=== PATIENT | female | born 1950 | race Caucasian/White ===

== ENCOUNTER 2025-05-12 01:15 | Emergency (ER) | payer MEDICARE, BC, SELFPAY ==
--- OUTSIDE RECORDS SUMMARY | 2025-03-31 14:30 | XMS_ITS | Encounter Summary ---
Author Organization [facility] Address [address] [place] [address]. [place] [address] Care Team Providers Care Leather Skinner Name Role Phone Radha Chang MD Primary Care Provider Love Andrew RD Unavailable Unavailable Radha Chang MD Unavailable [phone] Estela Jernigan RN Unavailable [phone] Mulugeta Gimenez PA-C Unavailable [phone] Ella Sumner PA-C Unavailable [phone] Perez Wheeler MD Unavailable Perez Wheeler MD Unavailable Ara Engel PA-C Unavailable [phone] Reason for Visit * Reason Comments Dressing Change Encounter Details Date Type Department Care Team (Late st Contact Info) Description 03/31/2025 2:30 PM CDT Allied Health/Nurse Visit [address] [phone] Dressing Change Social History Tobacco Use Types Packs/Day Years Used Date Smoking Tobacco: Never Smokeless Tobacco: Never Alcohol Use Standard Drinks/Week Comments Yes 0 (1 standard drink = 0.6 oz pur e alcohol) rarely drink Social Connection and Isolation Panel Answer Date Recorded Frequency of Communication with Friends and Fami ly Not on file 02/28/2025 How often do you get together with friends or re latives? Twice a week 02/28/2025 Attends Mosque Services Not on file 02/28 Active Member of Clubs or Organizations Not on f ile 02/28/2025 Attends Club or Organization Meetings Not on randolph e 02/28/2025 Marital Status Not on file 02/28/2025 PHQ-2 Answer Date Recorded PHQ-2 Score 0 03/02/2025 [facility] Occupational Stress Questionnaire Answer Date Recorded Do you feel stress - tense, restless, nervous, or anxious, or unable to sleep at night because your mind is troubled all the time - these days? Only a little 02/28/2025 Exercise Vital Sign Answer Date Recorde d On average, how many days pe r week do you engage in moderate to strenuous exercise (like a brisk walk)? 2 days 02/28/2025 On average, how many minutes do you engage in exercise at this level? 120 min 02/28/2025 Adolescent Education Answer Date Record ed Getting School Help Needed Not on file 04/23 Food Insecurity Answer Date Recorded Within the past 12 months, d id you worry that your food would run out before you got money to buy more? No 02/28/2025 Within the past 12 months, d id the food you bought just not last and you didn t have money to get more? No 02/28/2025 Housing Stability Answer Date Recorded Do you have housing? (Housin g is defined as stable permanent housing and does not include staying outside in a car, in a tent, in an abandoned building, in an overnight longterm, or couch-surfing.) Yes 02/28/2025 Are you worried about losing your housing? No 02/28/2025 Financial Resource Strain Answer Date R ecorded Within the past 12 months, h ave you or your family members you live with been unable to get utilities (heat, electricity) when it was really needed? No 02/28/2025 Transportation Needs Answer Date Record ed Within the past 12 months, h as lack of transportation kept you from medical appointments, getting your medicines, non-medical meetings or appointments, work, or from getting things that you need? No 02/28/2025 Interpersonal Safety Answer Date Record ed Do you feel physically and e motionally safe where you currently live? Yes 03/02/2025 Within the past 12 months, h ave you been hit, slapped, kicked or otherwise physically hurt by someone? No 03/02/2025 Within the past 12 months, h ave you been humiliated or emotionally abused in other ways by your partner or ex-partner? 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 Please feel free to call our office to speak with one of the nurses if you have any questions or concerns about the progress of the wound healing process especially if there are any signs of flap necrosis or infection. We will be happy to answer any questions you might have. AFTER 24 HOURS YOU SHOULD REMOVE THE BANDAGE AND BEGIN DAILY DRESSING CHANGES FOLLOWS: 1) Remove Dressing. 2) Clean and dry the area with tap water using a Q-tip or sterile gauze pad. 3) Apply Vaseline, Polysporin ointment, Aquafor or Bacitracin ointment over entire wound. Do NOT use Neosporin ointment. 4) Cover the wound with a band-aid, or a sterile non-stick gauze pad and micropore paper tape REPEAT THESE INSTRUCTIONS AT LEAST ONCE A DAY UNTIL THE WOUND HAS COMPLETELY HEALED. DO NOT LET THEWOUND SCAB OVER. It is an old wives tale that a wound heals better when it is exposed to air and allowed to dry out.The wound will heal faster with a better cosmetic result if it is kept moist with ointment and covered with a bandage. Massaging the wound site enhances the healing process by softening the scar tissue and fading the scar. Please begin massaging the area one month after surgery as often as possible. Continue to massage the area for 2-3 months or until they feel the scar tissue has softened. Moisturizers can be usedduring the massaging but are not necessary. Ultimately it takes six months for the scar to soften and blend into the surrounding skin. documented in this encounter Progress Notes * Clarissa Kim RN - 03/31/2025 2:30 PM CDT Katy Calvin comes into clinic today at the request of Dr. Willoughby Ordering Provider for Dressing Change . This service provided today was under the supervising provider of the day Yanci Pickering PA-C who was available if needed. Please see providers note on 03/25/25 for orders Patient returned to clinic for post surgery 1 week follow up bandage change. Patient has no complaints, denies pain. Bandage removed from R ala. Area cleansed with wound cleanser. Site is healing with no signs of infection, wound edges approximating well. Advised to watch for signs and symptons of infection; spreading redness, increasing pain, drainage,odor, fever. Call or report promptly to clinic if any of these symptoms are present. Wound care post op instructions given and discussed continued incision/scar care. Patient verbalized understanding. Clarissa Dickens RNmaintenance job titles [phone] documented in this encounter Plan of Treatment Upcoming Encounters Date Type Department Care Team (Late st Contact Info) Description 11/08/2025 8:00 AM CDT Office Visit [address] [phone] Radha Chang MD [address] [place] [id number] 11/09/2025 10:00 AM CDT Office Visit [address] [phone] Mulugeta Gimenez PA-C [id number] [place] [address] documented as of this encounter Goals Goal Patient Goal Type Associated Problems Recent Progress Patient-Stated? Author Establish Regular Follow-Ups with PCP Care Plan HbA1C Not In Goal No Estela Jernigan RN Get HbA1C Level in Goal Care Plan HbA1C Not In Goal Estela Sahu RN Understand diabetes pathophysiology and disease progression Care Plan Diabetes Self-Management Education Needed to Optimize Self-Care Behaviors Estela Sahu RN Healthy Eating - follow a healthy eating pattern for diabetes Care Plan Diabetes Self-Management Education Needed to Optimize Self-Care Behaviors Estela Sahu RN Being Active - get regular physical activity, working up to at least 150 minutes per week Care Plan Diabetes Self-Management Education Needed to Optimize Self-Care Behaviors Estela Sahu RN Monitoring - monitor glucose and ketones as directed Care Plan Diabetes Self-Management Education Needed to Optimize Self-Care Behaviors Estela Sahu RN Taking Medication - patient is consistently taking medications as directed Care Plan Diabetes Self-Management Education Needed to Optimize Self-Care Behaviors Estela Sahu RN Problem Solving - know how to prevent and manage short-term diabetes complications Care Plan Diabetes Self-Management Education Needed to Optimize Self-Care Behaviors Estela Sahu RN Reducing Risks - know how to prevent and treat long-term diabetes complications Care Plan Diabetes Self-Management Education Needed to Optimize Self-Care Behaviors Estela Sahu RN Healthy Coping - use available resources to cope with the challenges of managing diabetes Care Plan Diabetes Self-Management Education Needed to Optimize Self-Care Behaviors No Estela Jernigan RN documented as of this encounter Visit Diagnoses Diagnosis Dressing change or removal, surgical wound- Primary Encounter for change or removal of surgical wound dressing documented in this encounter Additional Health Concerns Active Problems Noted Date Diagnosed Date HbA1C Not In Goal 09/12/2022 Diabetes Self-Management Edu cation Needed to Optimize Self-Care Behaviors 09/12/2022 Assessment Noted Time PHQ-9 Depression Total Score: 4 12/12/19 19 11:53 AM CDT documented as of this encounter Care Teams Leather Skinner Relationship Specialty Start Date End Date Radha Chang MD [address] [place] [id number] PCP - General 03/05/[address] [place] [phone] Mortar Mixer Dietitian, Registered 12/04/18 Radha Chang MD [address] [place] [id number] Assigned PCP 01/13/22 Estela Jernigan RN [employer] Diabetes Education 09/03/22 Mulugeta Gimenez PA-C [phone] [address] Assigned Neuroscience Provider 11/03/22 Ella Sumner PA-C [facility] [place] [address] Physician Specialty Sales Representative Dermatology 11/14/23 Perez Wheeler MD [address] [place] [id number] Physician 12/05/23 Perez Wheeler MD [address] [place] [id number] Assigned Surgical Provider 10/04/24 Ara Engel PA-C Dermatology [address] [place] [id number] Assigned Dermatology Provider 12/04/24 documented as of this encounter
[2025-05-12 01:23] VITALS: BP 146/72; PULSE 89; RESP 18; TEMP 36.3; O2SAT 99; BMI 28.4
--- NOTE | 2025-05-12 01:47 | CRLHL7_ITS ---
For Patients: As a result of the Cures Act, medical imaging exams and procedure reports are released immediately into your electronic medical record. You may view this report before your referring provider. If you have questions, please contact your health care provider. INDICATION: Fall, pain. TECHNIQUE: Right wrist 3 view. COMPARISON: None. FINDINGS: Bones: No acute fracture or suspicious bone lesion. Alignment is normal. Joint spaces: Degenerative changes of the radiocarpal joint, distal radioulnar joint, 1st CMC joint, 1st MCP joint, and triscaphe. Soft tissues: Unremarkable. IMPRESSION: 1. No acute findings. 2. Degenerative changes of the wrist. Dictated by Yelitza Jonas MD @ 05/12/2025 2:34:56 AM (Electronically Signed)
--- NOTE | 2025-05-12 01:47 | CRLHL7_ITS ---
For Patients: As a result of the Cures Act, medical imaging exams and procedure reports are released immediately into your electronic medical record. You may view this report before your referring provider. If you have questions, please contact your health care provider. INDICATION: Fall, pain. TECHNIQUE: Right shoulder 3 view. COMPARISON: None. FINDINGS: Bones: No acute fracture or suspicious bone lesion. Alignment is normal. Joint spaces: Moderate degenerative changes of the glenohumeral joint. Mild degenerative changes of the acromioclavicular joint. Soft tissues: Unremarkable. IMPRESSION: 1. No acute findings. 2. Degenerative changes of the shoulder. Dictated by Yelitza Jonas MD @ 05/12/2025 2:32:05 AM (Electronically Signed)
--- NOTE | 2025-05-12 01:47 | CRLHL7_ITS ---
For Patients: As a result of the Century Cures Act, medical imaging exams and procedure reports are released immediately into your electronic medical record. You may view this report before your referring provider. If you have questions, please contact your health care provider. INDICATION: Fall, pain. 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 TECHNIQUE: Right elbow 4 view. COMPARISON: None. FINDINGS: Bones: No acute fracture or dislocation. 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 Chronic appearing deformities of the radial head and proximal ulna. Joints: Moderate degenerative changes. No sign of joint effusion. Soft tissues: Mild soft tissue swelling about the elbow. IMPRESSION: 1. Mild soft tissue swelling. No acute fracture. 2. 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 Dictated by Yelitza Jonas MD @ 05/12/2025 2:29:44 AM (Electronically Signed)
--- NOTE | 2025-05-12 01:49 | ED.GENADULT ---
HPI - General Adult General Chief complaint: Extremity Pain/Injury, Upper Stated complaint: fall, right arm and shoulder pain Time Seen by Provider: 05/12/25 01:21 Source: patient and family Mode of arrival: ambulatory Limitations: no limitations History of Present Illness HPI narrative: 75-year-old female presents to ED for evaluation of right arm pain after a fall 9 hours ago in her kitchen. Has not tried taking any medication to help with her pain. She reports she was unable to sleep because her arm was painful. When I ask her specifically where she vaguely points to the shoulder, the humerus the elbow the forearm and the wrist. When I try to clarify for her specifically where does it hurt bothersome enough to concern her, she again in around about long-winded way reports all of these areas. She then goes on to tell me that she has a history of a fracture in her right elbow at age 1 that has left her unable to do a laundry list that she extensively tells me of things as an adult. She cannot typically straighten this arm. There are no other areas of bruising, swelling, deformity. She does not report any open lacerations. No shortness of breath. Fall was purely mechanical. No numbness or tingling in her hand. Past medical history notable for hypertension, hypothyroidism, hyperlipidemia, type 2 diabetes. Medications are reviewed. Accurate as listed per patient. Allergy to sulfa. ROS is notable for the musculoskeletal symptoms only, otherwise benign times 12 systems. Related Data Home Medications ?Medication ?Instructions ?Recorded ?Confirmed azelastine 205.5 mcg (0.15 %) 1 spray intranasal QHS 07/18/24 07/18/24 nasal spray estradiol 0.01% (0.1 mg/gram) vaginal 07/18/24 07/18/24 vaginal cream ezetimibe 10 mg tablet 10 mg PO DAILY 07/18/24 07/18/24 levothyroxine 100 mcg tablet 100 mcg PO DAILY 07/18/24 07/18/24 lisinopril 2.5 mg tablet 2.5 mg PO DAILY 07/18/24 07/18/24 metformin 500 mg tablet 1,000 mg PO BID 07/18/24 07/18/24 minoxidil 2.5 mg tablet mg PO 07/18/24 07/18/24 mometasone 220 mcg/actuation(14 2 inh inhalation BID 07/18/24 07/18/24 doses) breath activated powder inhaler omeprazole 40 mg capsule,delayed 40 mg PO DAILY 07/18/24 07/18/24 release rosuvastatin 20 mg tablet 20 mg PO QPM 07/18/24 07/18/24 semaglutide 1 mg/dose (4 mg/3 mL) mg subcut 07/18/24 07/18/24 subcutaneous pen injector (Ozempic) Allergies Allergy/AdvReac Type Severity Reaction Status Date / Time Sulfa (Sulfonamide Allergy Intermediate Rash Verified 07/18/24 11:34 Antibiotics) Exam Const: Vital Signs, click to edit/add: Vital Signs - 24 hr 05/12/25 01:23 Temperature 97.3 F L Pulse Rate [Pulse Oximeter] 89 Respiratory Rate 18 Blood Pressure [Ri ght Upper Arm] 146/72 H Pulse Oximetry 99 Oxygen Delivery Me thod Room Air Documenting provider has reviewed patient's vital signs: yes Common normals: no apparent distress and alert General appearance: cooperative and comfortable HENMT: Common normals: normocephalic Head and scalp: normocephalic Face and sinus: normal facial exam Eye: Common normals: conjunctivae normal General eye: normal appearance of both eyes Conjunctiva: conjunctiva(e) normal Neck & C-Spine: General: normal visual inspection Resp: Common normals: normal respiratory effort and no use of accessory muscles Effort & inspection: able to speak in complete sentences Extremity: Other: Left arm, wrist and elbow appear grossly normal. The right elbow has chronic appearing enlargement with no swelling or effusion or redness. There is enlargement of the lateral epicondyle, she reports that this is chronic and it does appear as such. She cannot flex or extend much at the elbow but she does have some supination and pronation. The wrist has normal range of motion, no enlargement, deformity or range of motion deficit. The hand has normal range of motion though she does report some mild tenderness at the 1st MTP joint. Shoulder has normal range of motion with no point bony tenderness, swelling or deformity. She does report tenderness but again nonfocal. Normal radial pulses, normal capillary refill in all fingers. Normal sensation in all fingers. Neuro: Sensorium/orientation: alert Psych: Appearance: grossly normal Mood and affect: euthymic mood Insight: fair Judgement: fair Skin: Common normals: no rashes or lesions noted General skin exam: no rashes or lesions noted Course Course ED Course: 75-year-old female with shoulder, upper arm, elbow, forearm, wrist and CMC joint pain after a fall 9 hours ago. An adequate trial of home management with swgb-kqy-hqnqlog medications. Differential diagnosis including vascular or neurological injury, fracture, sprain, amongst others. Most likely this is a sprain. It will be difficult to evaluate her area of chronic fracture that there are no signs of effusion that would suggest acute pathology. Will obtain x-ray of the shoulder, elbow and wrist. Will give ibuprofen 600 mg p.o. x1 and await findings. Reevaluation(s) Time of Reevaluation #1: 02:40 Reevaluation #1: Counseled patient on findings. No signs of fractures. Her chronic elbow fracture of course has not Magic Oralia healed since her last evaluation for this. She is noting some improvement from the ibuprofen and sling. We counseled on ilzu-ktj-znzgjgx pain medications. Tylenol 1000 mg t.i.d. for the next few weeks as needed. Ibuprofen 600 mg t.i.d. for up to 5 days due to her history of diabetes and hypertension. Okay to use xtvl-got-qzrgyqb sleep aids like melatonin, Benadryl, Unisom as needed. Primary care orthopedic follow-up if not markedly improved in 2 weeks time. Sling p.r.n. if she finds it helpful only. Alarm symptoms reviewed that would warrant ER evaluation. Written instructions provided Vital Signs Vital signs: Initial Vital Signs Temperature 97.3 F L 05/12/25 01:23 Temperature Source Temporal Artery Scan 05/12/25 01:23 Pulse Rate 89 05/12/25 01:23 Pulse Rhythm Regular 05/12/25 01:23 Respiratory Rate 18 05/12/25 01:23 Blood Pressure 146/72 H 05/12/25 01:23 Blood Pressure Mean 96 05/12/25 01:23 Blood Pressure Position Sitting 05/12/25 01:23 Pulse Oximetry 99 05/12/25 01:23 Oxygen Delivery Method Room Air 05/12/25 01:23 Vital Signs Temperature 97.3 F L 05/12/25 01:23 Pulse Rate 89 05/12/25 01:23 Respiratory Rate 18 05/12/25 01:23 Blood Pressure 146/72 H 05/12/25 01:23 Pulse Oximetry 99 05/12/25 01:23 Oxygen Delivery Method Room Air 05/12/25 01:23 Temperature 97.3 F L 05/12/25 01:23 Pulse Rate 89 05/12/25 01:23 Respiratory Rate 18 05/12/25 01:23 Blood Pressure 146/72 H 05/12/25 01:23 Pulse Oximetry 99 05/12/25 01:23 Oxygen Delivery Method Room Air 05/12/25 01:23 Medications Administered Medications: Generic Name Dose Route Start Last Admin Trade Name Mary PRN Reason Stop Dose Admin Ibuprofen 600 mg 05/12/25 01:47 05/12/25 01:55 Ibuprofen 200 Mg Tablet PO 05/12/25 01:48 600 mg ONCE ONE Administration Medical Decision Making Imaging Data X-ray right elbow: Attestation: I have reviewed the pertinent imaging results. My impression: Chronic appearing fracture, no acute change Radiologist's impression: IMPRESSION: 1. Mild soft tissue swelling. No acute fracture. 2. 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 Dictated by Yelitza Jonas MD @ 05/12/2025 2:29:44 AM X-ray right wrist: Attestation: I have reviewed the pertinent imaging results. My impression: Arthritis, no fractures Radiologist's impression: IMPRESSION: 1. No acute findings. 2. Degenerative changes of the wrist. Dictated by Yelitza Jonas MD @ 05/12/2025 2:34:56 AM (Electronic Signature) X-ray right shoulder: Attestation: I have reviewed the pertinent imaging results. My impression: Arthritic changes but no fracture Radiologist's impression: IMPRESSION: 1. No acute findings. 2. Degenerative changes of the shoulder. Dictated by Yelitza Jonas MD @ 05/12/2025 2:32:05 AM Discharge Plan Discharge Clinical Impression: Arm sprain Patient Disposition: Home w/ Parent or Adult Condition: Stable Instructions: Sprain (ED) Additional Instructions: As we discussed, there are no signs of new fractures in your wrist, elbow or shoulder. There are some arthritis changes, not unexpected for your age. For pain, please start with Tylenol 1000 mg every 6-8 hours, max of 3000 mg per day. You may take this right away when you get home. This is safe for you to use for the next several weeks at these doses every day. For the next 5 days, it is also safe for you to use ibuprofen 600 mg 3 times daily. I do not recommend stronger pain medicine but it is safe to use ddhy-yvx-eyjcbig sleep aids like Benadryl, 10 mg of melatonin or knoy-nfm-vwsuwjj Unisom to help with sleep as well. It is okay to apply ice for 15 minutes 3 times daily to any focal area that is sore but if the entire arm is sore like you are telling me, there is not much value. Symptoms should improve gradually over the next 2 weeks but if you still have marked impairment of your function in 2 weeks time, please make a follow-up appointment in the clinic to have this evaluated. You may wear the sling if you find it helpful. Activity Level: Activity as Tolerated Discharge Diet: Regular Prescriptions: No Action minoxidil 2.5 mg tablet PO lisinopril 2.5 mg tablet 2.5 mg PO DAILY rosuvastatin 20 mg tablet 20 mg PO QPM ezetimibe 10 mg tablet 10 mg PO DAILY levothyroxine 100 mcg tablet 100 mcg PO DAILY omeprazole 40 mg capsule,delayed release(DR/EC) 40 mg PO DAILY Ozempic 1 mg/dose (4 mg/3 mL) pen injector subcut metformin 500 mg tablet 1,000 mg PO BID estradiol 0.01 % (0.1 mg/gram) cream vaginal azelastine 205.5 mcg (0.15 %) spray,non-aerosol 1 spray intranasal QHS Rx Instructions: administer into each nostril mometasone 220 mcg/ actuation (14) aerosol powdr breath activated 2 inh inhalation BID Follow Up/Referrals: Provider,Not a Local [Primary Care Provider, Family Practice] Stand Alone Forms: [employer] Info Instructions
[2025-05-12] MEDS: IBUPROFEN 200 MG TABLET 600 MG PO (01:55)
--- OUTSIDE RECORDS SUMMARY | 2025-05-12 02:10 | XMS_ITS | Clinical Summary ---
Author Organization [place] Address [facility] [place] [address] Care Team Providers Care Warehouse Guard Name Role Phone Abril Chang MD Primary Care Provider Love Andrew RD Unavailable Unavailable Abril Chang MD Unavailable [phone] Estela Jernigan RN Unavailable Mulugeta Gimenez PA-C Unavailable Ella Sumner PA-C Unavailable Perez Wheeler MD Unavailable Perez Wheeler MD Unavailable Ara Engel PA-C Unavailable [phone] Allergies Active Allergy Reactions Criticality Noted Date Comments Atorvastatin Calcium 12/10/2003 muscle aches and elevated liver functions Sulfamethoxazole-Trimethopri m Itching 03/26/2016 Caffeine 03/05/2003 GI sx Dust Mites 10/13/2015 Hydrocodone-Acetaminophen 11/20/2008 Vicodin makes her blood pressure drop Ragweeds 10/13/2015 Sertraline Hcl 03/05/2003 seizures - Zoloft Medications MULTIVITAMIN TABS OR 0 08/27/19 04 Active VITAMIN D3 2000 UNIT OR CAPSIndications: Vitamin D deficiency 3 tablets daily 30 Cap 12 09/27/19 10 Active aspirin 81 MG tabletIndication s:Hyperlipidemia LDL goal <130 Take 1 tablet by mouth daily. 100 tablet 3 01/31/20 11 Active order for DMEIndications:T ype 2 diabetes mellitus with diabetic polyneuropathy, without long-term current use of insulin (H) Shoes for diabetic neuropathy 2 Units 1 01/05/20 20 Active Microlet Lancets MISCIndications: Type 2 diabetes mellitus with hyperglycemia, without long-term current use of insulin (H),Type 2 diabetes mellitus with diabetic polyneuropathy, without long-term current use of insulin (H) 1 lancet. daily 100 each 11 02/26/20 24 Active chlorpheniramine (ALLERGY) 4 MG tabletIndication s:Multiple environmental allergies Take 1 tablet (4 mg) by mouth every 6 hours as needed for allergies or rhinitis. PRN [employer] brand 03/02/20 25 Active estradiol (ESTRACE) 0.1 MG/GM vaginal creamIndications :Atrophic vaginitis PLASE 1 GRAM VAGINALLY 3 TIMES WEEKLY 42.5 g 3 03/02/20 25 Active ezetimibe (ZETIA) 10 MG tabletIndication s:Hyperlipidemia LDL goal <70 Take 1 tablet (10 mg) by mouth daily. 90 tablet 1 03/02/20 25 Active fish oil-omega-3 fatty acids 1000 MG capsuleIndicatio ns:Coronary artery disease involving menominee coronary artery of menominee heart without angina pectoris,Hyperli pidemia LDL goal <70 Take 1 capsule (1 g) by mouth daily. 120 capsule 03/02/20 25 Active levothyroxine (SYNTHROID/LEVOT HROID) 100 MCG tabletIndication s:Hypothyroidism , unspecified type Take 1 tablet (100 mcg) by mouth daily. 90 tablet 3 03/02/20 25 Active lisinopril (ZESTRIL) 2.5 MG tabletIndication s:Type 2 diabetes mellitus with diabetic polyneuropathy, without long-term current use of insulin (H),Essential hypertension with goal blood pressure less than 140/90 TAKE ONE TABLET BY MOUTH ONE TIME DAILY 90 tablet 1 03/02/20 25 Active metFORMIN (GLUCOPHAGE) 500 MG tabletIndication s:Type 2 diabetes mellitus with diabetic polyneuropathy, without long-term current use of insulin (H) Take 2 tablets (1,000 mg) by mouth 2 times daily (with meals). 360 tablet 1 03/02/20 25 Active minoxidil (LONITEN) 2.5 MG tabletIndication s:Androgenetic alopecia Take 1/4 tablet daily. 45 tablet 2 03/02/20 25 Active mometasone (NASONEX) 50 MCG/ACT nasal sprayIndications :Nasal congestion Lopeno 2 sprays into both nostrils daily. 17 g 03/02/20 25 Active omeprazole (PRILOSEC) [address] capsuleIndicatio ns:Globus sensation Take 1 capsule (40 mg) by mouth daily. 90 capsule 03/02/20 25 Active rosuvastatin (CRESTOR) 40 MG tabletIndication s:Hyperlipidemia LDL goal <70,Coronary artery disease due to calcified coronary lesion Take 1 tablet (40 mg) by mouth daily. 90 tablet 03/02/20 25 Active Semaglutide, 1 MG/DOSE, (OZEMPIC) 4 MG/3ML penIndications:T ype 2 diabetes mellitus with hyperglycemia, without long-term current use of insulin (H) Inject 1 mg subcutaneously every 7 days. 3 mL 03/02/20 25 Active azelastine (ASTELIN) 0.1 % nasal sprayIndications :Nasal congestion Lopeno 1 spray into both nostrils 2 times daily as needed for rhinitis, other or allergies (nasal congestion). 30 mL 03/02/20 25 Active alcohol swab prep padsIndications: Type 2 diabetes mellitus with diabetic polyneuropathy, without long-term current use of insulin (H),Type 2 diabetes mellitus with hyperglycemia, without long-term current use of insulin (H) Use to swab area of injection/gogo as directed. 100 each 03/02/20 25 Active blood glucose (NO BRAND SPECIFIED) test stripIndications :Type 2 diabetes mellitus with diabetic polyneuropathy, without long-term current use of insulin (H),Type 2 diabetes mellitus with hyperglycemia, without long-term current use of insulin (H) Use to test blood sugar 1 times daily. 100 strip 03/02/20 25 Active Blood Glucose Monitoring Suppl (CONTOUR BLOOD GLUCOSE SYSTEM) w/Device KITIndications:T ype 2 diabetes mellitus with diabetic polyneuropathy, without long-term current use of insulin (H),Type 2 diabetes mellitus with hyperglycemia, without long-term current use of insulin (H) Use to test blood sugar 1 times daily. 1 kit 1 03/02/20 25 Active amoxicillin (AMOXIL) 500 MG capsuleIndicatio ns:Aortic valve sclerosis Take 4 capsules (2,000 mg) by mouth once for 1 dose. 60 minutes prior to dental work 4 capsule 4 04/02/20 24 025 Discontin ued(Reord er (No AVS)) amoxicillin (AMOXIL) 500 MG capsuleIndicatio ns:Aortic valve sclerosis Take 4 capsules (2,000 mg) by mouth once for 1 dose. 60 minutes prior to dental work 4 capsule 4 04/22/20 25 025 Active Problems Problem Noted Date Diagnosed Date History of concussion- from skiiing accident in her s - balance off somewhat since then 03/02/2025 Abnormal breast exam - redde thiago 3cm x 2cm irregular area with some underlying irregular firmness at 5:00 in the peripheral tissue left breast 03/10/2024 Overview (03/02/2025): Normal diag mammo and US 11/02/2024 and skin biopsy 11/05/2024 = benign superficial dermal fibrosis without epidermal or fat alteration Type 2 diabetes mellitus wit h diabetic polyneuropathy, without long-term current use of insulin (H)- needs labs and med refills today 02/26/2024 Nasal congestion 01/27/2024 Polyneuropathy associated with underlying diseas e 07/16/2023 Type 2 diabetes mellitus wit h hyperglycemia, without long-term current use of insulin 01/21/2023 Globus sensation - has now b een taking her omeprazole regularly daily again and symptoms are well controlled - resolved with that medication 01/21/2023 [place] or callus- right medial 2nd toe 01/21/2023 Vaccine refused by patient - COVID-19 bivalent booster - discussed with patient her high risk status - age >65, DM, HTN, and weight 01/21/2023 Tick bite of lower back, ini tial encounter- target lesions seen - will treat today 01/19/2022 Mild mitral valve regurgitation 06/01/2021 Mild tricuspid valve regurgitation 06/01/2021 Nonrheumatic aortic valve insufficiency 06/01/20 21 Atherosclerosis of aorta 09/25/2018 History of recurrent UTIs 10/13/2015 Allergic rhinitis due to pollen 12/08/2014 Essential hypertension with goal blood pressure less than 140/90 11/16/2014 Memory difficulties - per ne uropsych 07/07/2014- more psychological and physical stress related - better with decreased stress in her life 11/11/2014 Atrophic vaginitis 12/28/2013 Aortic valve sclerosis- mild - moderate - last echocardiogram 03/2024= 1.4cm2 decreased from 1.8 cm2 from 2021 -repeat echo in 03/2025 ### NEEDS SBE PROPHYLAXIS ### 12/28/2013 History of dysplastic nevus- right anterior thigh - required wider excision 12/28/2013 Recurrent UTI 12/19/2012 Lumbar back pain 04/14/2012 Neoplasm of uncertain behavior of skin- actinic keratoses 04/14/2012 Adenomatous Polyp of Colon-2 [id number] 2013 and 2020 = both clear - no further repeat needed secondary to age 0410/21/2009 Vitamin D deficiency 09/26/2009 Aortic Sclerosis - stable on echo in 2013 Fibrocystic breast disease 04/21/2008 History of urinary tract infection 10/11/2006 Overview (04/14/2015): Problem list name updated by automated process. Provider to review Dyspnea and respiratory abnormality 01/21/2006 Overview (04/14/2015): Problem list name updated by automated process. 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 Provider to review Family history of diabetes mellitus 04/03/2004 Gastroesophageal reflux dise ase without esophagitis -stopped PPI in 08/2015 without difficulty 12/11/2003 Asymptomatic postmenopausal status 03/23/2003 Overview (04/14/2015): Problem list name updated by automated process. Provider to review Nonalcoholic fatty liver disease 03/23/2003 Benign neoplasm of skin of lower limb, including hip 03/23/2003 Hyperlipidemia LDL goal <70 - formulary issues with rosuvastatin and ezetemibe 03/23/2003 Morbid obesity due to excess calories Overview (10/10/2016): Problem list name updated by automated process. Provider to review Estimated body mass index is 35.02 kg/(m^2) as calculated from the following: Height as of 05/09/16: 5' 6 (1.676 m). Weight as of 05/09/16: 217 lb (98.4 kg). Labyrinthitis Overview (04/14/2015): inner ear disturbance on& off since childhood when fell and broke something in inner ear Problem list name updated by automated process. Provider to review Other chest pain Overview (01/21/2006): normal gated stress test 08/02/05 Resolved Problems Problem Noted Date Diagnosed Date Resolved Date Somatic dysfunction of pelvic region 10/23/2016 01/17/2017 Diabetic polyneuropathy asso ciated with type 2 diabetes mellitus 11/11/2014 07/16/2023 Type 2 diabetes mellitus wit h diabetic polyneuropathy, without long-term current use of insulin 02/10/2011 07/16/2023 Advanced care planning/counseling discussion 1 06/24/2019 Overview (12/11/2018): Advance Directive Problem List Overview: Name Relationship Phone Primary Health Care Agent Anthony (Wolcott) Nikunj Alternative Health Care Agent Raheel Meraz Son [phone] Cell Her son , Raheel Meraz, is pt's designated health care decision maker in case her is not available. Pt is concerned that her daughters, Marzena Mcneal (hx of bipolar disorder, substance abuse and manipulative behaviors) and Katelyn Meraz (who can be very verbally aggressive) would NOT be reliable for care for pt in the future. Katy Mreaz stated very clearly to me today that she does NOT want her daughters with ANY decision making capabilities for her care, whatsoever. ---Abril Chang MD .December 11, 2018 Discussed advance care planning with patient; information given to patient to review. 2010 and again, December 11, 2018 ---Abril Chang MD Left message for patient to call back to arrange facilitation if desired for completion of Advanced Care Directive. Jillian Lomeli LPN/Advanced Healthcare Planning Vice President Business & Corporate Development 02/06/11 Advance Care Planning 12/17/2016: ACP Review of Chart / Resources Provided: Reviewed chart for advance care plan. Katy Meraz has been provided information and resources to begin or update their advance care plan. Added by Sylvie Rodríguez Leiomyoma of uterus 03/23/2003 10/22/19 Overview (04/14/2015): Problem list name updated by automated process. Provider to review UTI (urinary tract infection) 03/23/2003 03/21/2011 Overview (04/14/2015): Problem list name updated by automated process. Provider to review Primary localized osteoarthrosis, hand 03/23/2003 03/21/2011 Mucous polyp of cervix 03/23/200310/21 Benign neoplasm of colon 01/2011 Overview (10/11/2006): needs repeat in 2007 Encounters Date Type Department Care Team Description 04/22/[address] [phone] Abril Chang MD Medication Request 04/19/2025 Documentation Only [facility] Care [address] [place] [address], [address] [place] [address] Esha Curtis Sleep Problem 04/05/2025 Results Follow-Up [address] [phone] Abril Chang MD Subj: Message about your results 03/31/2025 2:30 PM CDT Allied Health/Nurse Visit [address] [phone] Dressing Change 03/31/2025 Travel 03/25/2025 8:15 AM CDT Office Visit [facility] [address] [phone] Chris Willoughby MD Dermal nevus (Primary Dx); Basal cell carcinoma (BCC) of ala nasi; Angioma of skin; Lentigo; Seborrheic keratoses 03/25/2025 Travel 03/24/2025 Travel 03/16/2025 12:52 PM CDT - 03/16/2025 11:59 PM CDT Hospital Encounter [facility] [address] [facility] [address] [place] [phone] Abril Chang MD Aortic valve sclerosis Discharge Disposition: Home or Self Care 03/16/2025 Travel 03/03/2025 8:30 AM CDT Ancillary Procedure [address] [phone] Abril Chang MD Visit for screening mammogram 03/03/[address] [phone] Abril Chang MD Medication Request 03/02/2025 9:20 AM CDT Office Visit [address] [phone] Abril Chang MD Encounter for Medicare annual wellness exam (Primary Dx); Abnormal breast exam - reddened 3cm x 2cm irregular area with some underlying irregular firmness at 5:00 in the peripheral tissue left breast; Adenomatous polyp of colon, unspecified part of colon; Coronary artery disease involving menominee coronary artery of menominee heart without angina pectoris- Agatson score = 847 on 12/08/[address] artery [place]; Hyperlipidemia LDL goal <70 - formulary issues with rosuvastatin and ezetemibe ; Coronary artery disease due to calcified coronary lesion- found on screening CT coronary angiogram 12/08/2024 - Agatson score 847 - asymptomatic - on high intensity statin & 81mg asa daily since then; Multiple environmental allergies; Hyperlipidemia LDL goal <70 - formulary issues with rosuvastatin and ezetemibe - needs labs and medication refills ; Hypothyroidism, unspecified type- needs labs and refills today; Type 2 diabetes mellitus with diabetic polyneuropathy, without long-term current use of insulin (H)- needs labs and med refills today ; Type 2 diabetes mellitus with hyperglycemia, without long-term current use of insulin (H)- on Ozempic - semaglutide; Essential hypertension with goal blood pressure less than 140/90- needs labs and med refills today ; Atrophic vaginitis- much improved with estrogen vaginal cream ; Androgenetic alopecia- on minoxidil po - stable; Globus sensation - has now been taking her omeprazole regularly daily again and symptoms are well controlled - resolved with that medication ; Nasal congestion; Vitamin D deficiency- needs labs rechecked; Visit for screening mammogram; History of concussion- from skiiing accident in her 20's - balance off somewhat since then 03/02/2025 Results Follow-Up [address] [phone] Abril Chang MD Dx: E. coli UTI (Primary Dx) 03/02/2025 Travel 02/28/2025 Travel from Last 3 Months Immunizations Immunization Administration Dates Next Due COVID-19 Monovalent Booster 18+ (Moderna) 06/01/2021 Flu 65+ (Fluad) 04/09/2024,,04/28/2019,2016 Hepatitis A (VAQTA)(ADULT 19+) 11/22/2017,2016 Hepatitis A/B (Twinrix) 08/10/2011,05/07/2011 Influenza (H1N1) 06/14/2009 Influenza (High Dose) [place] ent,PF (Fluzone) 05/15/2018 Influenza (IIV3) PF 04/28/2014, 3,04/04/2012,2010,05/12/2010,06/14/2009,07/06/2004 Influenza Vaccine 65+ (FLUAD) 04/01/2023, 022,04/07/2020 Influenza Vaccine 65+ (Fluzone HD) 07/15/2018 Pneumo Conj 13-V (2010&after) 10/13/2015 Pneumococcal 23 valent 07/13/2020,05/01/2013 RSV (Abrysvo) 06/18/2023 TD,PF 7+ (Tenivac) 11/13/2008,10/05/2002 TDAP (Adacel,Boostrix) 05/19/2022 TDAP Vaccine (Boostrix) 04/04/2012 Zoster recombinant adjuvante d (Shingrix) 04/28/2019,02/25/2019 Zoster vaccine, live 11/19/2013,07/29/2013 Family History Medical History Relation Comments Cerebrovascular Disease Maternal Grandfather Diabetes Mother type II Heart Disease Mother Hypertension Mother Obesity Mother Osteoporosis Niece Diabetes Paternal Aunt type II Diabetes Paternal Uncle type II Asthma Sister 1 Diabetes Sister 1 type II Obesity Sister 1 Osteoporosis Sister 1 Mental Illness Sister 2 Colon Cancer No family hx of Relation Status Comments Father Maternal Grandfather Mother (Age 67) heart Niece Alive Paternal Aunt Paternal Uncle Sister 1 Alive Sister 2 Social History Tobacco Use Types Packs/Day Years Used Date Smoking Tobacco: Never Smokeless Tobacco: Never Tobacco Cessation:Counseling Given: Not Answered Alcohol Use Standard Drinks/Week Comments Yes 0 (1 standard drink = 0.6 oz pur e alcohol) rarely drink Social Connection and Isolation Panel Answer Date Recorded Frequency of Communication with Friends and Fami ly Not on file 02/28/2025 How often do you get together with friends or re latives? 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 COUNSEL Gender Identity Not on file Sexual Orientation Not on file 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 Not on file Not on randolph e Not on file Not on file Not on file Not on file Not on file Last Filed Vital Signs Vital Sign Reading Time Taken Comments Blood Pressure 108/66 03/02/2025 9:17 AM CDT Pulse 86 03/02/2025 9:17 AM CDT Temperature 36.3 C (97.4 F) 03/02/2025 9:17 AM CDT Respiratory Rate 15 03/02/2025 9:17 AM CDT Oxygen Saturation 99% 03/02/2025 9:17 AM CDT Inhaled Oxygen Concentration - - Weight 77.9 kg (171 lb 11.2 oz) 03/02/2025 9:17 AM CDT Height 166.4 cm (5' 5.5) 03/02/2025 9:17 AM CDT Body Mass Index 28.14 03/02/2025 9:17 AM CDT Plan of Treatment Upcoming Encounters Date Type Department Care Team (Late st Contact Info) Description 11/08/2025 8:00 AM CDT Office Visit [address] [phone] Abril Chang MD [address] [place] [phone] 11/09/2025 10:00 AM CDT Office Visit [facility] [place] [id number] [phone] Mulugeta Gimenez PA-C [address] [facility] [address] [place], [place] [phone] Health Maintenance Due Date Last Done Comments CT COLONOGRAPHY 1950 FLEX SIG 1950 FIT 01/08/2020 01/07/2019, 11/12, 10/31/2015, Additional history exists INFLUENZA VACCINE (#1) 2025 , 04/01/2023, 05/19/2022, Additional history exists A1C 09/02/2025 03/02/2025, 10/13, 05/11/2024, Additional history exists ANNUAL REVIEW OF HM ORDERS 10/26/202510/26, 02/26/2024, 01/21/2023, Additional history exists MICROALBUMIN 10/26/2025 10/26/2024, 02/12, 01/21/2023, Additional history exists EYE EXAM 11/26/2025 11/26/2024, 05/0 12/2023, 08/13/2022, Additional history exists BMP 03/02/2026 03/02/2025, 10/13, 07/16/2023, Additional history exists DIABETIC FOOT EXAM 03/02/2026 03/02/2025, 0 02/26/2024, 02/26/2023, Additional history exists FALL RISK ASSESSMENT 03/02/2026 03/02/2025, 02/26/2024, 02/14/2024, Additional history exists LIPID 03/02/2026 03/02/2025, 10/13, 02/26/2024, Additional history exists MEDICARE ANNUAL WELLNESS VISIT 03/02/2026 03/02/2025, 02/26/2024, 01/21/2023, Additional history exists MAMMO SCREENING 03/03/2026 03/03/2025, 10/14, 03/18/2024, Additional history exists sDNA (Cologuard) 03/23/2027 03/23/2024, 03/23/2024 DEXA 07/02/2029 07/02/2024, 05/16, 01/22/2019, Additional history exists ADVANCE CARE PLANNING 03/02/2030 03/02/2025 , 08/10/2022, 01/19/2022, Additional history exists COLONOSCOPY 08/08/2030 08/08/2020, 07/16, 07/06/2014, Additional history exists COLORECTAL CANCER SCREENING 08/08/2030 DTAP/TDAP/TD VACCINE (3 - Td or Tdap) 05/19/2032 05/19/2022, 04/04/2012, 11/13/2008, Additional history exists COVID-19 VACCINE ( - season) 2112 06/01/2021, 09/30/2020, 09/02/2020 Postponed from 03/15/2025 (Patient Declined) HEPATITIS C SCREENING Completed 02/13/2013 ZOSTER VACCINE Completed 04/28/2019, 02/12, 11/19/2013, Additional history exists PNEUMOCOCCAL VACCINE 50+ YEARS Completed 07/13/2020, 10/13/2015, 05/01/2013 RSV VACCINE Completed 06/18/2023 TSH W/FREE T4 REFLEX Discontinued 10/26/2024, 10/26/2024, 02/21/2023, Additional history exists PHQ-2 (once per calendar year) Completed 03/02/2025, 10/26/2024, 02/26/2024, Additional history exists HPV VACCINE (No Doses Required) Completed MENINGITIS VACCINE Aged Out No longer eligible based on patient's age to complete this topic Goals Goal Patient Goal Type Associated Problems Recent Progress Patient-Stated? Author Establish Regular Follow-Ups with PCP Care Plan HbA1C Not In Goal Estela Sahu RN Get HbA1C Level in Goal Care [...] Education Needed to Optimize Self-Care Behaviors Estela Sahu, dispatcher relay Procedure Name Priority Date/Time Associated Diagnosis Comments [place] FULL THICK GRAFT EEN & LIPS 20 CM OR LESS Routine 03/25/2025 9:32 AM CDT Basal cell carcinoma (BCC) of ala nasi Dermal nevus Angioma of skin Lentigo Seborrheic keratoses NV MOHS HEAD/NCK/HND/FT/GEN EA ADDTL STAGE UP T0 5 BLOCKS Routine 03/25/2025 9:32 AM CDT Basal cell carcinoma (BCC) of ala nasi Dermal nevus Angioma of skin Lentigo Seborrheic keratoses NV MOHS HEAD/NCK/HND/FT/GEN 1ST STAGE UP T0 5 BLOCKS Routine 03/25/2025 9:32 AM CDT Basal cell carcinoma (BCC) of ala nasi Dermal nevus Angioma of skin Lentigo Seborrheic keratoses ECHO COMPLETE Routine 03/16/2025 1:31 PM CDT Aortic valve sclerosis MA SCREENING BILATERAL W/ JOHN Routine 03/03/2025 8:40 AM CDT Visit for screening mammogram URINE CULTURE Routine 03/02/2025 1:33 PM CDT Type 2 diabetes mellitus with diabetic polyneuropathy, without long-term current use of insulin (H)- needs labs and med refills today Type 2 diabetes mellitus with hyperglycemia, without long-term current use of insulin (H)- on Ozempic - semaglutide URINE MICROSCOPIC EXAM Routine 1:33 PM CDT Type 2 diabetes mellitus with diabetic polyneuropathy, without long-term current use of insulin (H)- needs labs and med refills today Type 2 diabetes mellitus with hyperglycemia, without long-term current use of insulin (H)- on Ozempic - semaglutide UA MACROSCOPIC WITH REFLEX TO MICRO AND CULTURE Routine 03/02/2025 1:33 PM CDT Type 2 diabetes mellitus with diabetic polyneuropathy, without long-term current use of insulin (H)- needs labs and med refills today Type 2 diabetes mellitus with hyperglycemia, without long-term current use of insulin (H)- on Ozempic - semaglutide 25 HYDROXYVITAMIN D2 & D3 Routine 03/02/2025 10:54 AM CDT Vitamin D deficiency HEMOGLOBIN A1C Routine 03/02/2025 10:54 AM CDT Type 2 diabetes mellitus with diabetic polyneuropathy, without long-term current use of insulin (H) Type 2 diabetes mellitus with hyperglycemia, without long-term current use of insulin (H) BASIC METABOLIC PANEL Routine 03/02/2025 10:54 AM CDT Type 2 diabetes mellitus with diabetic polyneuropathy, without long-term current use of insulin (H) Essential hypertension with goal blood pressure less than 140/90 Type 2 diabetes mellitus with hyperglycemia, without long-term current use of insulin (H) LIPID REFLEX TO DIRECT LDL PANEL Routine 03/02/2025 10:54 AM CDT Hyperlipidemia LDL goal <70 Coronary artery disease due to calcified coronary lesion ALT Routine 03/02/2025 10:54 AM CDT Hyperlipidemia LDL goal <70 Coronary artery disease due to calcified coronary lesion AST Routine 03/02/2025 10:54 AM CDT Hyperlipidemia LDL goal <70 Coronary artery disease due to calcified coronary lesion EYE EXAM - HIM SCAN 11/26/2024 1 2:00 AM CDT ALBUMIN AND CREATININE WITH RATIO RANDOM URINE QUANTITATIVE Routine 10/26/2024 10:34 AM CDT Essential hypertension with goal blood pressure less than 140/90 Type 2 diabetes mellitus with diabetic polyneuropathy, without long-term current use of insulin (H) Type 2 diabetes mellitus with hyperglycemia, without long-term current use of insulin (H)- on Ozempic - semaglutide Type 2 diabetes mellitus with diabetic polyneuropathy, without long-term current use of insulin (H)- needs labs and med refills today Hyperlipidemia LDL goal <70 - formulary issues with rosuvastatin and ezetemibe - needs labs and medication refills Essential hypertension with goal blood pressure less than 140/90- needs labs and med refills today T4 FREE Routine 10/26/2024 10:27 AM CDT Hypothyroidism, unspecified type- needs labs and refills today DX AXIAL HIPS/SPINE Routine 07/02/2024 3 :29 PM EXECUTIVE ASSISTANT TO GENERAL COUNSEL Asymptomatic menopause COLOGUARD(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) Nonalcoholic fatty liver disease Hypothyroidism, unspecified hypothyroidism type Hyperlipidemia LDL goal <100 Gastroesophageal reflux disease without esophagitis Hypertension goal BP (blood pressure) < 140/90 Vitamin D deficiency History of dysplastic nevus- right anterior thigh - required wider excision Adenomatous Polyp of [id number] epeat 2013=clear, needs repeat in 2019 Non morbid obesity due to excess calories Asymptomatic postmenopausal status Screen for colon cancer Visit for screening mammogram Atrophic vaginitis History of recurrent UTIs Encounter for immunization HEPATITIS C ANTIBODY Routine 02/13/2013 9:52 AM CDT Abnormal liver function tests from Last 3 Months or Most Recently Relevant to Health Maintenance Results * ECHO COMPLETE (03/16/2025 1:31 PM CDT) LVEF 60-65% CARDIOLOGY RESULTS Anatomical Region Laterality Modality Echocardiography 03/16/2025 1:08 PM CDT Narrative 03/16/2025 2:09 PM CDT [id number]^AME^ABRIL^A [facility] Echocardiography Laboratory [address] [place] [id number] Name: KATY MERAZ : 1950 Study Date: 03/16/2025 01:08 PM Age: 74 yrs Gender: Female Patient Location: [facility] Reason For Study: Aortic valve sclerosis Ordering Physician: ABRIL CHANG Referring Physician: ABRIL CHANG Performed By: Catarino Amaral RDCS BSA: 1.9 m2 Height: 65 in Weight: 177 lb HR: 75 BP: 102/67 mmHg Procedure Echocardiogram with two-dimensional, color and spectral Doppler. Interpretation Summary Moderate valvular aortic stenosis. The mean AoV pressure gradient is 21mmHg. The calculated aortic valve area is 1.1cm2. The visual ejection fraction is 60-65%. The left atrium is mildly dilated. Slight progression of aortic valve disease as compared with last year. Left Ventricle The left ventricle is normal in size. There is normal left ventricular wall thickness. Proximal septal thickening is noted. The visual ejection fraction is 60-65%. Grade I or early diastolic dysfunction. Right Ventricle The right ventricle is normal in structure, function and size. Atria The left atrium is mildly dilated. Right atrial size is normal. Mitral Valve The mitral valve leaflets are mildly thickened. There is moderate mitral annular calcification. There is trace mitral regurgitation. Tricuspid Valve Normal tricuspid valve. There is trace tricuspid regurgitation. Right ventricular systolic pressure is normal. Aortic Valve Moderate valvular aortic stenosis. The mean AoV pressure gradient is 21mmHg. The calculated aortic valve area is 1.1cm2. Pulmonic Valve The pulmonic valve is not well seen, but is grossly normal. Vessels The aortic root is normal size. Normal size ascending aorta. The inferior vena cava is normal. Pericardium There is no pericardial effusion. Rhythm Sinus rhythm was noted. MMode/2D Measurements & Calculations IVSd: 0.98 cm LVIDd: 4.1 cm LVIDs: 2.3 cm LVPWd: 1.2 cm IVC diam: 1.5 cm FS: 44.6 % LV mass(C)d: 148.5 grams LV mass(C)dI: 79.1 grams/m2 Ao root diam: 3.0 cm asc Aorta Diam: 3.1 cm LVOT diam: 2.0 cm LVOT area: 3.1 cm2 Ao root diam index Ht(cm/m): 1.8 Ao root diam index BSA (cm/m2): 1.6 Asc Ao diam index BSA (cm/m2): 1.6 Asc Ao diam index Ht(cm/m): 1.9 LA Volume (BP): 54.9 ml LA Volume Index (BP): 29.2 ml/m2 RV Base: 2.7 cm RWT: 0.57 TAPSE: 2.1 cm Time Measurements Aortic HR: 76.0 BPM Doppler Measurements & Calculations MV E max doc: 85.4 cm/sec MV A max doc: 135.0 cm/sec MV E/A: 0.63 MV max P.2 mmHg MV mean P.9 mmHg MV V2 VTI: 30.0 cm MVA(VTI): 2.3 cm2 MV dec time: 0.24 sec Ao V2 max: 300.0 cm/sec Ao max P.0 mmHg Ao V2 mean: 215.0 cm/sec Ao mean P.0 mmHg Ao V2 VTI: 64.2 cm OK(I,D): 1.1 cm2 OK(V,D): 1.1 cm2 LV V1 max P.0 mmHg LV V1 max: 112.0 cm/sec LV V1 VTI: 23.1 cm CO(LVOT): 5.4 l/min CI(LVOT): 2.9 l/min/m2 SV(LVOT): 70.5 ml SI(LVOT): 37.5 ml/m2 PA acc time: 0.11 sec TR max doc: 210.9 cm/sec TR max P.8 mmHg AV Doc Ratio (DI): 0.37 OK Index (cm2/m2): 0.58 E/E' av.8 Lateral E/e': 16.4 Medial E/e': 13.3 RV S Doc: 12.4 cm/sec Report approved by: Kelvin Laura MD on 03/16/2025 02:09 PM Procedure Note Kelvin Laura MD - 03/16/2025 [id number]^AME^ARBIL^Julio César [facility] Echocardiography Laboratory [address] [place] [id number] Name: KATY MERAZ : 1950 Study Date: 03/16/2025 01:08 PM Age: 74 yrs Gender: Female Patient Location: [facility] Reason For Study: Aortic valve sclerosis Ordering Physician: ABRIL CHANG Referring Physician: ABRIL CHANG Performed By: Catarino Amaral RDCS BSA: 1.9 m2 Height: 65 in Weight: 177 lb HR: 75 BP: 102/67 mmHg Procedure Echocardiogram with two-dimensional, color and spectral Doppler. Interpretation Summary Moderate valvular aortic stenosis. The mean AoV pressure gradient is 21mmHg. The calculated aortic valve area is 1.1cm2. The visual ejection fraction is 60-65%. The left atrium is mildly dilated. Slight progression of aortic valve disease as compared with last year. Left Ventricle The left ventricle is normal in size. There is normal left ventricularwall thickness. Proximal septal thickening is noted. The visual ejectionfraction is 60-65%. Grade I or early diastolic dysfunction. Right Ventricle The right ventricle is normal in structure, function and size. Atria The left atrium is mildly dilated. Right atrial size is normal. Mitral Valve The mitral valve leaflets are mildly thickened. There is moderate mitral annular calcification. There is trace mitral regurgitation. Tricuspid Valve Normal tricuspid valve. There is trace tricuspid regurgitation. Right ventricular systolic pressure is normal. Aortic Valve Moderate valvular aortic stenosis. The mean AoV pressure gradient [id number]. The calculated aortic valve area is 1.1cm2. Pulmonic Valve The pulmonic valve is not well seen, but is grossly normal. Vessels The aortic root is normal size. Normal size ascending aorta. The inferiorvena cava is normal. Pericardium There is no pericardial effusion. Rhythm Sinus rhythm was noted. MMode/2D Measurements & Calculations IVSd: 0.98 cm LVIDd: 4.1 cm LVIDs: 2.3 cm LVPWd: 1.2 cm IVC diam: 1.5 cm FS: 44.6 % LV mass(C)d: 148.5 grams LV mass(C)dI: 79.1 grams/m2 Ao root diam: 3.0 cm asc Aorta Diam: 3.1 cm LVOT diam: 2.0 cm LVOT area: 3.1 cm2 Ao root diam index Ht(cm/m): 1.8 Ao root diam index BSA (cm/m2): 1.6 Asc Ao diam index BSA (cm/m2): 1.6 Asc Ao diam index Ht(cm/m): 1.9 LA Volume (BP): 54.9 ml LA Volume Index (BP): 29.2 ml/m2 RV Base: 2.7 cm RWT: 0.57 TAPSE: 2.1 cm Time Measurements Aortic HR: 76.0 BPM Doppler Measurements & Calculations MV E max doc: 85.4 cm/sec MV A max doc: 135.0 cm/sec MV E/A: 0.63 MV max P.2 mmHg MV mean P.9 mmHg MV V2 VTI: 30.0 cm MVA(VTI): 2.3 cm2 MV dec time: 0.24 sec Ao V2 max: 300.0 cm/sec Ao max P.0 mmHg Ao V2 mean: 215.0 cm/sec Ao mean P.0 mmHg Ao V2 VTI: 64.2 cm OK(I,D): 1.1 cm2 OK(V,D): 1.1 cm2 LV V1 max P.0 mmHg LV V1 max: 112.0 cm/sec LV V1 VTI: 23.1 cm CO(LVOT): 5.4 l/min CI(LVOT): 2.9 l/min/m2 SV(LVOT): 70.5 ml SI(LVOT): 37.5 ml/m2 PA acc time: 0.11 sec TR max doc: 210.9 cm/sec TR max P.8 mmHg AV Doc Ratio (DI): 0.37 OK Index (cm2/m2): 0.58 E/E' av.8 Lateral E/e': 16.4 Medial E/e': 13.3 RV S Doc: 12.4 cm/sec Report approved by: Kelvin Laura MD on 03/16/2025 02:09 PM Abril Chang MD CV ECHO ORDERABLES Edit ed Result - Final * MA Screening Bilateral w/ John (03/03/2025 8:40 AM CDT) Anatomical Region Laterality Modality Breast Bilateral Mammography Impressions 03/03/2025 1:48 PM CDT IMPRESSION: ACR BI-RADS Category 1: Negative BREAST CANCER SCREENING RECOMMENDATION: Routine yearly mammography beginning at age 40 or as discussed with your provider. The results and recommendations of this examination will be communicated to the patient. Sven Madden MD Narrative 03/03/2025 1:48 PM CDT BILATERAL FULL FIELD DIGITAL SCREENING MAMMOGRAM WITH TOMOSYNTHESIS Performed on: 03/03/25 Compared to: 03/18/2024 and 04/07/2020 Technique: This study was evaluated with the assistance of Computer-Aided Detection. Breast Tomosynthesis was used in interpretation. Findings: There are scattered areas of fibroglandular density. There is no radiographic evidence of malignancy. us Abril Chang MD IMG MAMMOGRAPHY ORDERAB LES Final Result * (ABNORMAL) UA Macroscopic with reflex to Microscopic and Culture - Lab Collect (03/02/2025 1:33 PM CDT) Color Urine Yellow Colorless, Straw, Light Yellow, Yellow 03/02/2025 1:38 PM CDT [facility] Appearance Urine Clear Clear 03/02/20 1:38 PM CDT [facility] Glucose Urine Negative Negative mg/dL 03/02/2025 1:38 PM CDT [facility] Bilirubin Urine Negative Negative 1:38 PM CDT [facility] Ketones Urine Negative Negative mg/dL 03/02/2025 1:38 PM CDT [facility] Specific [place] Urine 1.025 1.003 - 1.035 03/02/2025 1:38 PM CDT [facility] Blood Urine Small(A) Negative 03/02/2025 1:38 PM CDT [facility] pH Urine 5.5 5.0 - 7.0 03/02/2025 1:38 PM CDT [facility] Protein Albumin Urine 100(A) Negative mg/dL 03/02/2025 1:38 PM CDT [facility] Urobilinogen Urine 0.2 0.2, 1.0 E.U./dL 03/02/2025 1:38 PM CDT [facility] Nitrite Urine Positive(A) Negative 03/02/2025 1:38 PM CDT [facility] Leukocyte Esterase Urine Trace(A) Negative 03/02/2025 1:38 PM CDT [facility] Urine MID-STREAM URINE SPECIMEN / Unknown Non-blood Collection / Unknown 03/02/2025 1:33 PM CDT 03/02/2025 1:33 PM CDT us Abril Chang MD LAB - URINE ORDERABLES Final Result [facility] [place] [facility] [address] [place] [address] S[address] E. Lab (no room number, 1st floor of clinic) [place] [address], [facility] * (ABNORMAL) Urine Microscopic Exam (03/02/2025 1:33 PM CDT) Bacteria Urine Many(A) None Seen /HPF EJ 03/02/2025 1:42 PM CDT [facility] RBC Urine 2-5(A) 0-2 /HPF /HPF EJ 03/02/2025 1:42 PM CDT [facility] WBC Urine 50-100(A) 0-5 /HPF /HPF EJ 03/02/2025 1:42 PM CDT [facility] Urine MID-STREAM URINE SPECIMEN / Unknown Non-blood Collection / Unknown 03/02/2025 1:33 PM CDT 03/02/2025 1:33 PM CDT us Abril Chang MD LAB - URINE ORDERABLES Final Result [facility] [place] [address] [place] [address] S. E. Lab (no room number, 1st floor of clinic) [place] [address], [facility] * (ABNORMAL) Urine Culture (03/02/2025 1:33 PM CDT) Culture >100,000 CFU/mL Escherichia coli(A) 03/04/2025 2:54 AM CDT [facility] Urine MID-STREAM URINE SPECIMEN / Unknown Non-blood Collection / Unknown 03/02/2025 1:33 PM CDT 03/02/2025 1:38 PM CDT Narrative Organism Antibiotic Method Susceptibility Escherichia coli Ampicillin EJ >=32 ug/mL: Resistant Escherichia coli Ampicillin/ Sulbactam EJ 16 ug/mL: Intermediate Escherichia coli Piperacillin/Tazobactam EJ <=4 ug/mL: Susceptible Escherichia coli Cefazolin EJ 2 ug/mL: Susceptible Escherichia coli Ceftazidime EJ <=0.5 ug/mL: Susceptible Escherichia coli Ceftriaxone EJ <=0.25 ug/mL: Susceptible Escherichia coli Cefepime EJ <=0.12 ug/mL: Susceptible Escherichia coli Gentamicin EJ <=1 ug/mL: Susceptible Escherichia coli Ciprofloxacin EJ <=0.06 ug/mL: Susceptible Escherichia coli Levofloxacin EJ <=0.12 ug/mL: Susceptible Escherichia coli Nitrofurantoin EJ <=16 ug/mL: Susceptible Escherichia coli Trimethoprim/Sulfamethoxazole EJ <=1/19 ug/mL: Susceptible us Abril Chang MD LAB - MICRO GENERAL ORD ERABLES Final Result [facility] Inf. Diseases Diag. Lab [address] [facility] [address] [facility] [place], [address] [place] [address], [facility] * 25 Hydroxyvitamin D2 and D3 (03/02/2025 10:54 AM CDT) 25 [place] Vitamin D2 <5 ug/L 03/06/20 10:25 AM CDT [facility] 25 [place] Vitamin D3 49 ug/L 03/06/20 10:25 AM CDT [facility] 25 OH Vit D Total <54 20 - 75 ug/L 03/06/2025 10:25 AM CDT [facility] Comment:Season, race, dietar y intake, and treatment affect the concentration of 29-odeymju-Cdodicz D. Values may decrease during winter months and increase during summer months. Values 20-29 ug/L may indicate Vitamin D insufficiency and values <20 ug/L may indicate Vitamin D deficiency. Blood BLOOD SPECIMEN / Unknown Venipuncture / Unknown 03/02/2025 10:54 AM CDT 03/02/2025 10:54 AM CDT Narrative SPECIAL DRUG/[facility] - 03/06/2025 10:25 AM CDT This test was developed and its performance characteristics determined by the [facility], Special Chemistry Laboratory. It has not been cleared or approved by the FDA. The laboratory is regulated under CLIA as qualified to perform high-complexity testing. This test is used for clinical purposes. It should not be regarded as investigational or for research. Abril Chang MD LAB - BLOOD ORDERABLES Final Result [facility] [address] [facility], [address] [place] [address], [facility] * Lipid panel reflex to direct LDL Fasting (03/02/2025 10:54 AM CDT) Cholesterol 118 <200 mg/dL 03/03/2025 12:16 AM CDT [facility] Triglycerides 98 <150 mg/dL 03/03/2025 12:16 AM CDT [facility] Direct Measure HDL 65 >=50 mg/dL 2024 12:16 AM CDT [facility] LDL Cholesterol Calculated 33 <100 mg/dL 03/03/2025 12:16 AM CDT [facility] Comment:LDL calculated using the Friedewald equation. Non HDL Cholesterol 53 <130 mg/dL 03/03/2025 12:16 AM CDT [facility] Patient Fasting > 8hrs? Yes 03/03/2025 12:16 AM CDT [facility] Blood BLOOD SPECIMEN / Unknown Venipuncture / Unknown 03/02/2025 10:54 AM CDT 03/02/2025 10:54 AM CDT Narrative [facility] - 03/03/2025 12:16 AM CDT Cholesterol Desirable: < 200 mg/dL Borderline High: 200 - 239 mg/dL High: >= 240 mg/dL Triglycerides Normal: < 150 mg/dL Borderline High: 150 - 199 mg/dL High: 200-499 mg/dL Very High: >= 500 mg/dL Direct Measure HDL Female: >= 50 mg/dL Male: >= 40 mg/dL LDL Cholesterol Desirable: < 100 mg/dL Above Desirable: 100 - 129 mg/dL Borderline High: 130 - 159 mg/dL High: 160 - 189 mg/dL Very High: >= 190 mg/dL Non HDL Cholesterol Desirable: < 130 mg/dL Above Desirable: 130 - 159 mg/dL Borderline High: 160 - 189 mg/dL High: 190 - 219 mg/dL Very High: >= 220 mg/dL us Abril Chang MD LAB - BLOOD ORDERABLES Final Result [facility] [place] [facility] [address] [facility], [address] [place] [address], [facility] * (ABNORMAL) Hemoglobin A1c (03/02/2025 10:54 AM CDT) Estimated Average Glucose 117(H) <117 mg/dL 03/02/2025 11:03 AM CDT [facility] Hemoglobin A1C 5.7(H) 0.0 - 5.6 % 03/02/2025 11:03 AM CDT [facility] Comment: Normal <5.7% Prediabetes 5.7-6.4% Diabetes 6.5% or higher Note: Adopted from ADA consensus guidelines. Blood BLOOD SPECIMEN / Unknown Venipuncture / Unknown 03/02/2025 10:54 AM CDT 03/02/2025 10:54 AM CDT us Abril Chang MD LAB - BLOOD ORDERABLES Final Result LABORATORY [facility] [place] [facility] [address] [place] [address] Lab (no room number, 1st floor of clinic) [place] [address] * AST (03/02/2025 10:54 AM CDT) AST 37 0 - 45 U/L 03/03/2025 12:16 AM CDT [facility] Blood BLOOD SPECIMEN / Unknown Venipuncture / Unknown 03/02/2025 10:54 AM CDT 03/02/2025 10:54 AM CDT us Abril Chang MD LAB - BLOOD ORDERABLES Final Result LABORATORY [facility] [place] [facility] [address] [facility], [address] * ALT (03/02/2025 10:54 AM CDT) ALT 45 0 - 50 U/L 03/03/2025 12:16 AM CDT [facility] Blood BLOOD SPECIMEN / Unknown Venipuncture / Unknown 03/02/2025 10:54 AM CDT 03/02/2025 10:54 AM CDT us Abril Chang MD LAB - BLOOD ORDERABLES Final Result U LABORATORY [facility] [place] [facility] [address] [facility], [address] * (ABNORMAL) Basic metabolic panel (03/02/2025 10:54 AM CDT) Sodium 136 135 - 145 mmol/L 03/03/2025 12:16 AM CDT [facility] Potassium 4.0 3.4 - 5.3 mmol/L 03/03/2025 12:16 AM CDT [facility] Chloride 98 98 - 107 mmol/L 03/03/2025 12:16 AM CDT [facility] Carbon Dioxide (CO2) 26 22 - 29 mmol/L 03/03/2025 12:16 AM CDT [facility] Anion Gap 12 7 - 15 mmol/L 03/03/2025 12:16 AM CDT [facility] Urea Nitrogen 13.9 8.0 - 23.0 mg/dL 03/03/2025 12:16 AM CDT [facility] Creatinine 0.74 0.51 - 0.95 mg/dL 03/03/2025 12:16 AM CDT [facility] GFR Estimate 83 >60 mL/min/1.7 3m2 03/03/2025 12:16 AM CDT [facility] Comment:eGFR calculated 2020 CKD-EPI equation. Calcium 10.5(H) 8.8 - 10.4 mg/dL 03/03/2025 12:16 AM CDT [facility] Glucose 109(H) 70 - 99 mg/dL 03/03/2025 12:16 AM CDT [facility] Patient Fasting > 8hrs? Yes 03/03/2025 12:16 AM CDT [facility] Blood BLOOD SPECIMEN / Unknown Venipuncture / Unknown 03/02/2025 10:54 AM CDT 03/02/2025 10:54 AM CDT us Abril Chang MD LAB - BLOOD ORDERABLES Final Result [facility] [place] [facility] [address] [facility], [address] [place] [address], [facility] * Eye Exam - HIM Scan (11/26/2024 12:00 AM CDT) RETINOPATHY NEGATIVE 11/26/2024 Narrative Samuel Dillard - 11/26/2024 12:00 AM CDT EYE EXAM [facility] us Provider Outside OTHER Edited Result - Final * Albumin Random Urine Quantitative with Creat Ratio (10/26/2024 10:34 AM CDT) Creatinine Urine mg/dL 98.1 mg/dL 10/26/2024 9:17 PM CDT [facility] Comment:The reference ranges have not been established in urine creatinine. The results should be integrated into the clinical context for interpretation. Albumin Urine mg/L 17.4 mg/L 2024 9:17 PM CDT [facility] Comment:The reference ranges have not been established in urine albumin. The results should be integrated into the clinical context for interpretation. Albumin Urine mg/g Cr 17.74 0.00 - 25.00 mg/g Cr 10/26/2024 9:17 PM CDT [facility] Comment: Microalbuminuria is defined as an albumin:creatinine ratio of 17 to 299 for males and 25 to 299 for females. A ratio of albumin:creatinine of 300 or higher is indicative of overt proteinuria. Due to biologic variability, positive results should be confirmed by a second, first-morning random or 24-hour timed urine specimen. If there is discrepancy, a third specimen is recommended. When 2 out of 3 results are in the microalbuminuria range, this is evidence for incipient nephropathy and warrants increased efforts at glucose control, blood pressure control, and institution of therapy with an juqcvzsxjhq-dipvvoniwx-oowzon (GISELLE) inhibitor (if the patient can tolerate it). Urine URINE SPECIMEN / Unknown Non-blood Collection / Unknown 10/26/2024 10:34 AM CDT 10/26/2024 10:34 AM CDT Abril Chang MD LAB - URINE ORDERABLES Final Result [facility] [place] [facility] [address] [facility], [address] [place] [address] * T4 free (10/26/2024 10:27 AM CDT) Free T4 1.48 0.90 - 1.70 ng/dL 10/26/2024 9:32 PM CDT [facility] Blood BLOOD SPECIMEN / Unknown Venipuncture / Unknown 10/26/2024 10:27 AM CDT 10/26/2024 10:28 AM CDT Abril Chang MD LAB - BLOOD ORDERABLES Final Result U LABORATORY [facility] [place] [facility] [address] [facility], [address] [place] [id number] * DX AXIAL HIPS/SPINE (07/02/2024 3:29 PM EXECUTIVE ASSISTANT TO GENERAL COUNSEL) Anatomical Region Laterality Modality Dexa Bone Mineral Den sity 07/02/2024 3:29 PM EXECUTIVE ASSISTANT TO GENERAL COUNSEL Impressions 07/03/2024 2:23 PM EXECUTIVE ASSISTANT TO GENERAL COUNSEL IMPRESSION: Low bone density (OSTEOPENIA). T score meets the WHO criteria for low bone density (osteopenia) at one or more measured sites. The risk of osteoporotic fracture increases approximately two-fold for each standard deviation decrease in T-score. Narrative 07/03/2024 2:23 PM EXECUTIVE ASSISTANT TO GENERAL COUNSEL EXAM: DX AXIAL HIPS/SPINE LOCATION: [facility] DATE: 07/02/2024 INDICATION: BMD screening, follow-up. DEMOGRAPHICS: Age- 74 years. Gender- Female. Menopausal status- Postmenopausal. COMPARISON: 01/22/2019 TECHNIQUE: Dual-energy x-ray absorptiometry (DXA) performed with routine technique. FINDINGS: DXA RESULTS -Lumbar Spine: L1-L4 (L3): BMD: 1.104 g/cm2. T-score: -0.7. Z-score: 0.0. L3 omitted from lumbar spine due to greater than 1.0 T-score difference from adjacent vertebrae. This is likely due to degenerative changes, which may artifactually increase BMD. -RIGHT Hip Total: BMD: 0.946 g/cm2. T-score: -0.5. Z-score: 0.5. -RIGHT Hip Femoral neck: BMD: 0.881 g/cm2. T-score: -1.1. Z-score: 0.1. -LEFT Hip Total: BMD: 0.998 g/cm2. T-score: -0.1. Z-score: 0.9. -LEFT Hip Femoral neck: BMD: 0.947 g/cm2. T-score: -0.7. Z-score: 0.6. WHO T-SCORE CRITERIA -Normal: T score at or above -1 SD -Osteopenia: T score between -1 and -2.5 SD -Osteoporosis: T score at or below -2.5 SD The World Health Organization (WHO) criteria is applicable to perimenopausal females, postmenopausal females, and men aged 50 years or older. INTERVAL CHANGE -There has been a 10.7% decrease in lumbar spine BMD. -There has been a 5.9% decrease in bilateral hip BMD. FRACTURE RISK -FRAX Results: The 10 year probability of major osteoporotic fracture is 9.8%, and of hip fracture is 1.6%, based on right femoral neck BMD. RECOMMENDATIONS The current National Osteoporosis Foundation Guide recommends that FDA-approved medical therapies be considered if the 10 year probability of major osteoporotic fracture risk is greater than or equal to 20%, or if the hip fracture risk is greater than or equal to 3%. Please note all treatment decisions require clinical judgement and consideration of individual patient factors, including patient preferences, comorbidities, previous drug use, risk factors not captured in the FRAX model (e.g. frailty, falls, vitamin D deficiency, increased bone turnover, interval significant decline in bone density) and possible under or over-estimation of fracture risk by FRAX. Procedure Note Maribel Padilla PA-C - 07/03/2024 EXAM: DX AXIAL HIPS/SPINE LOCATION: [facility] [place] DATE: 07/02/2024 INDICATION: BMD screening, follow-up. DEMOGRAPHICS: Age- 74 years. Gender- Female. Menopausal status-Postmenopausal. COMPARISON: 01/22/2019 TECHNIQUE: Dual-energy x-ray absorptiometry (DXA) performed with routinetechnique. FINDINGS: DXA RESULTS -Lumbar Spine: L1-L4 (L3): BMD: 1.104 g/cm2. T-score: -0.7. Z-score: 0.0.L3 omitted from lumbar spine due to greater than 1.0 T-score differencefrom adjacent vertebrae. This is likely due to degenerative changes, whichmay artifactually increase BMD. -RIGHT Hip Total: BMD: 0.946 g/cm2. T-score: -0.5. Z-score: 0.5. -RIGHT Hip Femoral neck: BMD: 0.881 g/cm2. T-score: -1.1. Z-score: 0.1. -LEFT Hip Total: BMD: 0.998 g/cm2. T-score: -0.1. Z-score: 0.9. -LEFT Hip Femoral neck: BMD: 0.947 g/cm2. T-score: -0.7. Z-score: 0.6. WHO T-SCORE CRITERIA -Normal: T score at or above -1 SD -Osteopenia: T score between -1 and -2.5 SD -Osteoporosis: T score at or below -2.5 SD The World Health Organization (WHO) criteria is applicable toperimenopausal females, postmenopausal females, and men aged 50 years orolder. INTERVAL CHANGE -There has been a 10.7% decrease in lumbar spine BMD. -There has been a 5.9% decrease in bilateral hip BMD. FRACTURE RISK -FRAX Results: The 10 year probability of major osteoporotic fracture is9.8%, and of hip fracture is 1.6%, based on right femoral neck BMD. RECOMMENDATIONS The current National Osteoporosis Foundation Guide recommends thatFDA-approved medical therapies be considered if the 10 year probability ofmajor osteoporotic fracture risk is greater than or equal to 20%, or ifthe hip fracture risk is greater than or equal to 3%. Please note all treatment decisions require clinicaljudgement and consideration of individual patient factors, includingpatient preferences, comorbidities, previous drug use, risk factors notcaptured in the FRAX model (e.g. frailty, falls, vitamin D deficiency, increased bone turnover, interval significantdecline in bone density) and possible under or over-estimation of fracturerisk by FRAX. IMPRESSION: Low bone density (OSTEOPENIA). T score meets the WHO criteriafor low bone density (osteopenia) at one or more measured sites. The riskof osteoporotic fracture increases approximately two-fold for eachstandard deviation decrease in T-score. us Abril A Vanderscoff MD IMG DEXA ORDERABLES Fin al Result * COLOGUARD(Speak With Me) (03/23/2024 10:00 AM CDT) COLOGUARD-ABSTRACT Negative Negative 2023 9:15 AM CDT [facility] (CLIA #:[id number]) Comment: NEGATIVE TEST RESULT. A negative Cologuard result indicates a low likelihood that a colorectal cancer (CRC) or advanced adenoma (adenomatous polyps with more advanced pre-malignant features) is present. The chance that a person with a negative Cologuard test has a colorectal cancer is less than 1 in 1500 (negative predictive value >99.9%) or has an advanced adenoma is less than 5.3% (negative predictive value 94.7%). These data are based on a prospective cross-sectional study of 10,000 individuals at average risk for colorectal cancer who were screened with both Cologuard and colonoscopy. (Iveth Okeefe et al, N Engl J Med 2014;370(14):9348-6559) The normal value (reference range) for this assay is negative. COLOGUARD RE-SCREENING RECOMMENDATION: Periodic colorectal cancer screening is an important part of preventive healthcare for asymptomatic individuals at average risk for colorectal cancer. Following a negative Cologuard result, the [place] Cancer Society and U.S. Multi-Society Task Force screening guidelines recommend a Cologuard re-screening interval of 3 years. References: [place] [employer] Guideline for Colorectal Cancer Screening: https://www.cancer.org/cancer/kjjeq-pboesd-qaakjn/sxycczcfr-dxrbgdmlz-bdzibpd/ac s-rec ommendations.html.; Yoni AGUILERA, Aakash ONEILL, Zee LancasterK, Colorectal Cancer Screening: Recommendations for Physicians and Patients from the U.S. Multi-Society Task Force on Colorectal Cancer Screening , Am J Gastroenterology 2017; 112:6312-9679. TEST DESCRIPTION: Composite algorithmic analysis of stool DNA-biomarkers with hemoglobin immunoassay. Quantitative values of individual biomarkers are not reportable and are not associated with individual biomarker result reference ranges. Cologuard is intended for colorectal cancer screening of adults of either sex, 45 years or older, who are at average-risk for colorectal cancer (CRC). Cologuard has been approved for use by the U.S. FDA. The performance of Cologuard was established in a cross sectional study of average-risk adults aged 50-84. Cologuard performance in patients ages 45 to 49 years was estimated by sub-group analysis of near-age groups. Colonoscopies performed for a positive result may find as the most clinically significant lesion: colorectal cancer [4.0%], advanced adenoma (including sessile serrated polyps greater than or equal to 1cm diameter) [20%] or non- advanced adenoma [31%]; or no colorectal neoplasia [45%]. These estimates are derived from a prospective cross-sectional screening study of 10,000 individuals at average risk for colorectal cancer who were screened with both Cologuard and colonoscopy. (Iveth Zepeda al, N Engl J Med 2014;370(14):8609-5022.) Cologuard may produce a false negative or false positive result (no colorectal cancer or precancerous polyp present at colonoscopy follow up). A negative Cologuard test result does not guarantee the absence of CRC or advanced adenoma (pre-cancer). The current Cologuard screening interval is every 3 years. ([place] Cancer Society and U.S. Multi-Society Task Force). Cologuard performance data in a 10,000 patient pivotal study using colonoscopy as the reference method can be accessed at the following location: www.Pict/results. Additional description of the Cologuard test process, warnings and precautions can be found at www.EzLikeogRome2riord.com. Stool specimen (specimen) 03/23/2024 10:00 AM CDT 03/24/2024 8:20 AM CDT us Abril Chang MD LABORATORY Final R esult [facility] [address] [place] [address], [facility] [phone] [facility] (CLIA #:[id number]) [address] [place] [address] * COLONOSCOPY (08/08/2020 7:43 AM EXECUTIVE ASSISTANT TO GENERAL COUNSEL) COLONOSCOPY [facility] Patient Name: Katy Meraz Procedure Date: 08/08/2020 7:43 AM Date of : 1950 Admit Type: Outpatient Age: 70 Gender: Female Attending MD: Lindy Cha MD Total Sedation Time: 30 mins Instrument Name: 212 - Pediatric Colonoscope Procedure: Colonoscopy Indications: Screening for colorectal malignant neoplasm Providers: Lindy Cha MD (Doctor) Referring MD: Abril Chang MD (Referring MD) Medicines: Midazolam 2 mg IV, Fentanyl 100 micrograms IV Complications: No immediate complications. Procedure: Pre-Anesthesia Assessment: - Prior to the procedure, a History and Physical was performed, and patient medications and allergies were reviewed. The patient is competent. The risks and benefits of the procedure and the sedation options and risks were discussed with the patient. All questions were answered and informed consent was obtained. Patient identification and proposed procedure were verified by the physician. Mental Status Examination: normal. Prophylactic Antibiotics: The patient does not require prophylactic antibiotics. Prior Anticoagulants: The patient has taken no previous anticoagulant or antiplatelet agents. ASA Grade Assessment: I - A normal, healthy patient. After reviewing the risks and benefits, the patient was deemed in satisfactory condition to undergo the procedure. The anesthesia plan was to use moderate sedation / analgesia (conscious sedation). Immediately prior to administration of medications, the patient was re-assessed for adequacy to receive sedatives. The heart rate, respiratory rate, oxygen saturations, blood pressure, adequacy of pulmonary ventilation, and response to care were monitored throughout the procedure. The physical status of the patient was re-assessed after the procedure. After obtaining informed consent, the colonoscope was passed under direct vision. Throughout the procedure, the patient's blood pressure, pulse, and oxygen saturations were monitored continuously. The Olympus Pediatric Colonoscope, Model # PCF-H190DL, Endora # 212, SN # [id number] was introduced through the anus and advanced to the cecum, identified by appendiceal orifice and ileocecal valve. The colonoscopy was performed without difficulty. The patient tolerated the procedure well. The quality of the bowel preparation was evaluated using the BBPS ([place] Bowel Preparation Scale) with scores of: Right Colon = 3, Transverse Colon = 3 and Left Colon = 3 (entire mucosa seen well with no residual staining, small fragments of stool or opaque liquid). The total BBPS score equals 9. Findings: The perianal and digital rectal examinations were normal. The colon (entire examined portion) appeared normal. External and internal hemorrhoids were found during retroflexion. The hemorrhoids were small. Impression: - The entire examined colon is normal. - External and internal hemorrhoids. - No specimens collected. Recommendation: - Discharge patient to home. - Resume regular diet. - Continue present medications. - Repeat colonoscopy in 10 years for screening purposes. Procedure Code(s): --- Professional --- G0121, Colorectal cancer screening; colonoscopy on individual not meeting criteria for high risk Diagnosis Code(s): --- Professional --- Z12.11, Encounter for screening for malignant neoplasm of colon K64.8, Other hemorrhoids CPT copyright 2019 [place] [employer]. All rights reserved. The codes documented in this report are preliminary and upon inpatient coder review may be revised to meet current compliance requirements. Electronic Signature by Dr. Lindy Cha Lindy Cha MD 08/08/2020 8:41:39 AM I was physically present for the entire viewing portion of the exam. Lindy Cha MD Number of Addenda: 0 Note Initiated On: 08/08/2020 7:43 AM Procedure Date: 08/08/2020 7:43:48 AM Scope Withdrawal Time: 0 hours 11 minutes 39 seconds Total Procedure Duration: 0 hours 27 minutes 15 seconds Estimated Blood Loss: Scope In: 8:09:02 AM Scope Out: 8:36:17 AM RADIOLOGY RESULTS 08/08/2020 7:43 AM EXECUTIVE ASSISTANT TO GENERAL COUNSEL Result Levi Chang MD PROCEDURES Final R esult Performing Organization Address City/[facility]/ZIP Co de Phone Number RADIOLOGY RESULTS * Fecal colorectal cancer screen FIT (01/07/2019 2:39 PM CDT) Occult Blood Scn FIT Negative NEG^Negati ve 01/11/2019 5:09 PM CDT [facility] Stool specimen (specimen) 01/07/2019 2:39 PM CDT 01/11/2019 2:44 PM CDT us Abril Chang MD LAB - STOOLS ORDERABLES Final Result Performing Organization Address City/[facility]/ZIP Co de Phone Number [facility] [address] [place] [address] * Hepatitis C antibody (02/13/2013 9:52 AM CDT) Hepatitis C Antibody Negative NEG [facility] Blood specimen (specimen) 02/13/2013 9:52 AM CDT 02/13/2013 9:57 AM CDT Result Levi Chang MD LAB - BLOOD ORDERABLES Final Result Performing Organization Address City/[facility]/ZIP Co de Phone Number [facility] [address] [place] [address], [facility] from Last 3 Months or Most Recently Relevant to Health Maintenance Additional Health Concerns Active Problems Noted Date Diagnosed Date HbA1C Not In Goal 09/12/2022 Diabetes Self-Management Edu cation Needed to Optimize Self-Care Behaviors 09/12/2022 Insurance [facility] [place] MEDICARE [facility] [place] MEDICARE [facility] [place] Advance Directives For more information, please contact: [phone] Documents on File Type Date Recorded Patient Manager Of Investigations Expl anation Advance Directives and Living Will 08/10/2022 Health Care Directiv e 06-25-2022 Advance Directives and Living Will 06/24/2019 8:40 AM superseded by 06-25-2022 HCD; Health Care Directive 06/19/2019 * Full Code (Latest Code Status on File) Date Activated Date Inactivated Comments 05/01/2013 11:25 AM 07/10/2019 9:15 AM Confirmed with pt today: May 01, 2013 --- Abril Chang MD Healthcare Agents on File Name Relationship Healthcare Agent Relationship Communication Keri Meraz Spouse Health Care Agent [email or web address] Raheel Meraz Son First Alternate Health Care Agent [phone] (Mobile) Care Teams Warehouse Guard Relationship Specialty Start Date End Date Abril Chang MD [address] [place] [phone] PCP - General 03/05/[address] [place] [phone] Mold Yard Crane Operator Dietitian, Registered 12/04/18 Abril Chang MD [address] [place] [address] 20230 Assigned PCP 01/13/22 Estela Jernigan, RN Mold Yard Crane Operator Diabetes Education 09/03/22 Mulugeta Gimenez PA-C [address] [phone] Assigned Neuroscience Provider 11/03/22 Ella Sumner PA-C [address] [place], [place] [phone] Physician Lay Out Drafter Dermatology 11/14/23 Perez Wheeler MD [address] [place] [address] Physician 12/05/23 Perez Wheeler MD [address] [address] Assigned Surgical Provider 10/04/24 Ara Engel PA-C Dermatology [address] [place] [address] [phone] Assigned Dermatology Provider 12/04/24
--- OUTSIDE RECORDS SUMMARY | 2025-05-12 02:10 | XMS_ITS | Encounter Summary ---
Author Organization [place] Address [facility] [place] [address] Care Team Providers Care Maintenance Carpenter Name Role Phone Abril Chang MD Primary Care Provider Obdulia Abbott PA-C Unavailable [phone] Obdulia Abbott PA-C Unavailable [phone] Unavailable Unavailable Abril Chang MD Unavailable [phone] Ronak Vann DO Unavailable [phone] Fartun Velez APRN DIGITAL PRE PRESS OPERATOR Unavailable + Abril Chang MD Unavailable [phone] Ronak Vann DO Unavailable [phone] Abril Chang MD Unavailable [phone] Estela Jernigan RN Unavailable [phone] Mulugeta Gimenez PA-C Unavailable [phone] Ella Sumner PA-C Unavailable [phone] Perez Wheeler MD Unavailable Perez Wheeler MD Unavailable Ella Sumner PA-C Unavailable [phone] Ella Sumner PA-C Unavailable [phone] Perez Wheeler MD Unavailable Ara Engel PA-C Unavailable [phone] Encounter Details Date Type Department Care Team (Late st Contact Info) Description 07/19/2005 Office Visit-[facility] [address] [place] [address] Unknown, DoctorMD Social History Tobacco Use Types Packs/Day Years Used Date Smoking Tobacco: Former Cigarettes 0.2 2 Comments:quit at age 12 Alcohol Use Standard Drinks/Week Comments No 0 (1 standard drink = 0.6 oz pur e alcohol) Comments No Sex and Gender Information Value Date Recorded Sex Assigned at Not on file Legal Sex Female 3:08 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 Hypothyroidism, 244.9 2. - Murmur, 785.2 3. Aortic Valve Disease, 424.1 ALLERGIES Caffeine, Depression Zoloft, Tremors MEDICATIONS (including any changes made today) 1. Cipro 250 mg, 1 p.o. b.i.d. 2. Aspirin 81 mg, 1 p.o. q.d. 3. Prilosec 20 mg, PRN 4. Multi-Day Multiple Vitamins, 1 p.o. q.d. 5. Fish Oil -, 1 p.o. q.d. 6. Citracal Caplets Plus D 1500 mg-200 u, 1 p.o. q.d. CHIEF COMPLAINTS Murmur HISTORY OF PRESENT ILLNESS I had the pleasure of meeting your patient, Katy Meraz, today. She is a very sweet 55-year-old lady whose past medical history is fairly benign except for borderline hypothyroidism. She also has had difficult to treat hyperlipidemia and has a very positive family history of cardiovascular events. She was noted in your office to have a new murmur and was scheduled for an echocardiogram. This study was normal except for diastolic dysfunction and mild aortic insufficiency. Her EKG today showed sinus rhythm with a left axis deviation and early transition in the right precordial leads. When questioned about possible cardiac symptoms, she did tell me that she has been experiencing a dull ache in her center and left chest. She cannot say that she identifies a pattern and it can last anywhere from a few minutes to a few hours. She does say that this has been fairly recent in onsetand she has been under a severe amount of stress over the last several months. She denies any palpitations or light-headed spells, any trouble breathing or any problems with edema. Her physical examination is remarkable for how good her blood pressure is. I understand that she has had higher blood pressures at home than she has here. Her lung jauregui are clear. Her cardiac exam reveals a regular rhythm with a grade I/ early systolic murmur that I hear best at the left lower sternal border and apex. No diastolic murmur is noted. The balance of her exam is unremarkable. She has excellent pulses in her feet and no peripheral edema. No bruits are noted in the carotid areas or her abdomen. PAST HISTORY Past Medical Illnesses: hypothyroidism, uterine lipoma,osteoarthritis,gerd,fatty liver Past Cardiac Illnesses: murmur Infectious Diseases: usual childhood illnesses of mumps, measles and chickenpox Surgical Procedures: arthroscopic knee surgery Trauma History: metacarpal FX Cardiology Procedures-Noninvasive: echocardiogram June 2005 Left Ventricular Ejection Fraction: EF50% by Echo -June 2005 FAMILY HISTORY: Father - CAD, hypercholesterolemia and pacemaker; Mother - , diabetes- Type II (NIDDM) and [place]; Sister 1 - diabetes-Type II (NIDDM) and hypercholesterolemia; CARDIAC RISK FACTORS Tobacco Abuse: negative; Family History of Heart Disease: strong family history of heart disease; Hyperlipidemia: lipid status unknown; Hypertension: negative; Diabetes Mellitus: negative; Prior History of Heart Disease: negative; Obesity:BMI25 (Over weight); Sedentary Life Style:positive; Age:positive; Menopausal:positive SOCIAL HISTORY Alcohol Use - does not use alcohol; Smoking - never smoked; Diet - weight Reduction Diet, caffeine use-none and low fat Diet; Lifestyle - ; Exercise - exercises daily, elyptical first aid trainer, walking and dancing; Seat Belt Use - always; 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 GENITOURINARY-FEMALE positive for frequency, positive for urgency MUSCULOSKELETAL muscle pain or cramps NEUROLOGICAL denies any history of recurrent strokes, headaches, TIA, or seizure disorder. PSYCHIATRIC denies any history of depression, substance abuse or change in cognitive functions. ENDOCRINE denies any history of hyperlipidemia, thyroid disease or diabetes mellitus. HEMATOLOGICAL/IMMUNOLOGIC allergy to caffeine PHYSICAL EXAMINATION VITAL SIGNS: Blood Pressure: 134/84 Sitting, Right arm, regular cuff Pulse- 72.00/min. Weight- 192.00 lbs. Height- 66.00 Temperature- .00 CONSTITUTIONAL cooperative, alert and oriented,well developed, well nourished, in no acute distress. SKIN warm and dry to touch, no apparent skin lesions, or masses noted. HEAD normocephalic, atraumatic EYES Pupils equal and round, conjunctivae and lids unremarkable, sclera white, no xanthalasma ENT no pallor or cyanosis, dentition good NECK carotid pulses are full and equal bilaterally, JVP normal, no carotid bruit, no thyromegaly CHEST normal symmetry, no tenderness to palpation, normal respiratory excursion, no intercostal retraction, no use of accessory muscles, clear to auscultation and percussion. CARDIAC Regular rhythm with a 1/6 early systolic murmur heard best at the LLSB and apex. No diastolic murmur ABDOMEN abdomen soft, bowel sounds normoactive, no masses, no hepatosplenomegaly, non- tender, no bruits PERIPHERAL PULSES pulses full and equal in all extremities, no bruits auscultated. EXTREMITIES & BACK no deformities, clubbing, cyanosis, erythema or edema observed. There are no spinal abnormalities noted. Normal muscle strength and tone. PSYCHIATRIC A little tearful today--talking about a friend who just NEUROLOGICAL no gross motor deficits noted, affect appropriate, oriented to time, person and place. IMPRESSIONS/PLAN I think it would be mejias given all her risk factors for Katy to undergo a nuclear stress test. James concerned about her blood pressure because of the diastolic dysfunction noted on her echocardiogram and would like to see her blood pressure response to stress. I also want to be sure that her chest discomfort is not myocardial ischemia and this should help us with that determination. As far as her valve is concerned, I would repeat an echocardiogram in a year to make sure this is stable and that she does not need further follow-up. I told her that given the minor nature of the valve leakage she does not need antibiotic prophylaxis for dental procedures. I told Katy that when I have the results of her nuclear stress test I would call her and let herknow if anything further needs to be done and, of course, we will send your office a report as well. TODAYS ORDERS 1. Treadmill Nuclear Study 2 weeks 2. 2D, color flow, doppler 1 year Cristy Daigle MD Electronically signed by [facility], [facility] Data Conversion at 11/27/2013 12:27 AM CDT documented in this encounter Plan of Treatment Upcoming Encounters Date Type Department Care Team (Late st Contact Info) Description 11/08/2025 8:00 AM CDT Office Visit [address] [phone] Abril Chang MD [address] [place] [address] [phone] 11/09/2025 10:00 AM CDT Office Visit [facility] [place] [address] [phone] Mulugeta Gimenez PA-C [address] [facility] [address] [place], [place] [phone] documented as of this encounter Visit Diagnoses Not on filedocumented in this encounter Additional Health Concerns Infection Onset Date Last Indicated Resolved Time Rule Out COVID-19 02/26/2022 02/26/2022 02/27/2022 8:27 PM CDT documented as of this encounter Care Teams Maintenance Carpenter Relationship Specialty Start Date End Date Abril Chang MD [address] [place] [address] [phone] PCP - General 03/05/03 Obdulia Abbott PA-C [address] [facility] [place] [address] PCP - Assigned PCP 12/22/17 09/16/18 Obdulia bAbott, TRINY [facility] [facility] [place] [address] Assigned PCP 12/22/17 11/22/[address] [place] [address] [place] [address] Staffing Program Manager Dietitian, Registered 12/04/18 Abril Chang MD [address] [place] [phone] Assigned PCP 11/23/18 01/07/21 Ronak Vann DO [address] [place] [phone] Assigned PCP 01/08/21 04/01/21 Fartun Velez APRN DIGITAL PRE PRESS OPERATOR [address] [place] [address] Assigned PCP 04/02/21 06/17/21 Abril Chang MD [address] [place] [address] Assigned PCP 06/18/21 07/22/21 Ronak Vann DO [address] [place] [address] Assigned PCP 07/23/21 01/12/22 Abril Chang MD [address] [place] [address] Assigned PCP 01/13/22 Estela Jernigan, RN Staffing Program Manager Diabetes Education 09/03/22 Mulugeta Gimenez PA-C [address] [facility] [address] [address] Assigned Neuroscience Provider 11/03/22 Ella Sumner PA-C [address] [place], [place] [phone] Physician Motorboat Mechanic Inboard Dermatology 11/14/23 Perez Wheeler MD [address] [place] [address] [phone] Physician 12/05/23 Perez Wheeler MD [address] [place] [address] [phone] Assigned Surgical Provider 02/04/24 05/05/24 Ella Sumner PA-C [address] [place] [address] Assigned Surgical Provider 05/06/24 10/03/24 Ella Sumner PA-C 64[address] [facility] [place], [place] [address] Assigned Dermatology Provider 10/04/24 12/03/24 Perez Wheeler MD [address] [place] [address] [phone] Assigned Surgical Provider 10/04/24 Ara Engel PA-C Dermatology [address] [place] [address] [phone] Assigned Dermatology Provider 12/04/24 documented as of this encounter
--- OUTSIDE RECORDS SUMMARY | 2025-05-12 02:10 | XMS_ITS | Encounter Summary ---
Author Organization [place] Address [address] [place] [address]. [place] [address] Care Team Providers Care Cigar Brander Name Role Phone Radha Chang MD Primary Care Provider Love Andrew RD Unavailable Unavailable Radha Chang MD Unavailable Estela Jernigan RN Unavailable [phone] Mulugeta Gimenez PA-C Unavailable [phone] Ella Sumner PA-C Unavailable [phone] Perez Wheeler MD Unavailable Perez Wheeler MD Unavailable Ara Engel PA-C Unavailable [phone] Reason for Visit * Reason Onset Date Comments Medication Request 03/03/2025 Encounter Details Date Type Department Care Team (Late st Contact Info) Description 03/03/[address] [phone] Radha Chang MD [address] [place] [address] Medication Request Social History Tobacco Use Types Packs/Day Years [...] re latives? Twice a week 02/28/2025 Attends Buddhism Services Not on file 02/28 Active Member of Clubs or Organizations Not on f ile 02/28/2025 Attends Club or Organization Meetings Not on randolph e 02/28/2025 Marital Status Not on file 02/28/2025 PHQ-2 Answer Date Recorded PHQ-2 Score 0 03/02/2025 [facility] - Occupational Stress [...] Answer Date Recorded Do you have housing? 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 Routing to provider to review See sensitivity panel- switch antibiotics ? * Telephone Encounter - Lorena Aggarwal - 03/03/2025 1:51 PM CDT New Medication Request Contacts Contact Date/Time Type Contact Phone/Fax 03/03/2025 01:51 PM CDT Phone (Incoming) Katy Calvin (Self) [phone] (H) What medication are you requesting?: Meds for treatment from recent urine culture Reason for medication request: Pt has high bacteria count in recent urine culture Have you taken this medication before?: No Controlled Substance Agreement on file: CSA -- Patient Level: CSA: None found at the patient level. Patient offered an appointment? No, patient seen yesterday on 03/02 Preferred Pharmacy: [facility] [id number] IN [facility] - [address] [facility] [address] Could we send this information to you in [employer] or would you prefer to receive a phone call?: Patient would prefer a phone call and would like a message on [employer] Okay to leave a detailed message?: Yes at Home number on file [phone] (home) documented in this encounter Plan of Treatment Upcoming Encounters Date Type Department Care Team (Late st Contact Info) Description 11/08/2025 8:00 AM CDT Office Visit [address] [phone] Radha Chang MD [address] [place] [address] 11/09/2025 10:00 AM CDT Office Visit [facility] [address] [phone] Mulugeta Gimenez PA-C [address] [place] [address] [phone] documented as of this encounter Goals Goal Patient Goal Type Associated Problems Recent Progress Patient-Stated? Author Establish Regular Follow-Ups with PCP Care Plan HbA1C Not In Goal No Estela Jernigan RN Get HbA1C Level in Goal Care Plan HbA1C Not In Goal No Estela Jernigan RN Understand diabetes pathophysiology and disease progression Care Plan Diabetes Self-Management Education Needed to Optimize Self-Care Behaviors No Estela Jernigan RN Healthy Eating - follow a healthy eating pattern for diabetes Care Plan Diabetes Self-Management Education Needed to Optimize Self-Care Behaviors No Estela Jernigan RN Being Active - get regular physical activity, working up to at least 150 minutes per week Care Plan Diabetes Self-Management Education Needed to Optimize Self-Care Behaviors No Estela Jernigan RN Monitoring - monitor glucose and ketones as directed Care Plan Diabetes Self-Management Education Needed to Optimize Self-Care Behaviors No Estela Jernigan RN Taking Medication - patient is consistently taking medications as directed Care Plan Diabetes Self-Management Education Needed to Optimize Self-Care Behaviors No Estela Jernigan RN Problem Solving - know how to prevent and manage short-term diabetes complications Care Plan Diabetes Self-Management Education Needed to Optimize Self-Care Behaviors Estela Sahu RN Reducing Risks - know how to prevent and treat long-term diabetes complications Care Plan Diabetes Self-Management Education Needed to Optimize Self-Care Behaviors No Estela Jernigan RN Healthy Coping - use available resources to cope with the challenges of managing diabetes Care Plan Diabetes Self-Management Education Needed to Optimize Self-Care Behaviors No Estela Jernigan RN documented as of this encounter Visit Diagnoses Not on filedocumented in this encounter Additional Health Concerns Active Problems Noted Date Diagnosed Date HbA1C Not In Goal 09/12/2022 Diabetes Self-Management Edu cation Needed to Optimize Self-Care Behaviors 09/12/2022 Assessment Noted Time PHQ-9 Depression Total Score: 4 12/12/19 19 11:53 AM CDT documented as of this encounter Care Teams Cigar Brander Relationship Specialty Start Date End Date Radha Chang MD [address] [place] [address] PCP - General 03/05/[address] [place] [address] Exchange Underwriting Consultant Dietitian, Registered 12/04/18 Radha Chang MD [address] [place] [address] Assigned PCP 01/13/22 Estela Jernigan RN Exchange Underwriting Consultant Diabetes Education 09/03/22 Mulugeta Gimenez PA-C [address] [place] [address] Assigned Neuroscience Provider 11/03/22 Ella Sumner PA-C [address] [facility] [address] Physician Deposit Refund Clerk Dermatology 11/14/23 Perez Wheeler MD [address] [place] [address] Physician 12/05/23 Perez Wheeler MD [address] [place] [address] Assigned Surgical Provider 10/04/24 Ara Engel PA-C Dermatology [address] [place] [address] Assigned Dermatology Provider 12/04/24 documented as of this encounter
--- OUTSIDE RECORDS SUMMARY | 2025-05-12 02:10 | XMS_ITS ---
Author Organization [place] Address [address] [facility] [place] [address] Care Team Providers Care Concrete Batcher Name Role Phone Radha Chang MD Primary Care Provider Love Andrew RD Unavailable Unavailable Radha Chang MD Unavailable [phone] Estela Jernigan RN Unavailable Mulugeta Gimenez PA-C Unavailable [phone] Ella Sumner PA-C Unavailable [phone] Perez Wheeler MD Unavailable Perez Wheeler MD Unavailable Ara Engel PA-C Unavailable [phone] Diabetes Self-Management Education Status:Enrolled (Active) Start date:08/27/2022 Enrollment date:09/03/2022 Current support & services provided:Type 2 Diabetes Management, Individual Education Case Team Name Relationship Phone Estela Jernigan RN(Responsible Staff) Diabetes E ducator [phone] Continued Care and Services Coordination
--- OUTSIDE RECORDS SUMMARY | 2025-05-12 02:10 | XMS_ITS | Encounter Summary ---
Author Organization [place] Address [address] [facility] [place] [address] Care Team Providers Care Design Sales Consultant Name Role Phone Radha Chang MD Primary Care Provider Love Andrew RD Unavailable Unavailable Radha Chang MD Unavailable [phone] Estela Jernigan RN Unavailable Mulugeta GimenezC Unavailable Elal Sumner PA-C Unavailable [phone] Perez Wheeler MD Unavailable Perez Wheeler MD Unavailable Ara Engel PA-C Unavailable [phone] Reason for Visit * Reason Comments Sleep Problem Encounter Details Date Type Department Care Team (Late st Contact Info) Description 04/19/2025 Documentation Only [facility] [address] [place] [address], [address] [place] [address] Esha Curtis Sleep Problem Social History Tobacco Use Types Packs/Day Years [...] re latives? Twice a week 02/28/2025 Attends Pentecostal Services Not on file 02/28 Active Member of Clubs or Organizations Not on f ile 02/28/2025 Attends Club or Organization Meetings Not on randolph e 02/28/2025 Marital Status Not on file 02/28/2025 PHQ-2 Answer Date Recorded PHQ-2 Score 0 03/02/2025 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 N documented in this encounter Plan of Treatment Upcoming Encounters Date Type Department Care Team (Late st Contact Info) Description 11/08/2025 8:00 AM CDT Office Visit [address] [phone] Radha Chang MD [address] [place] [address] 11/09/2025 10:00 AM CDT Office Visit [facility] [address] [phone] Mulugeta Gimenez PA-C [address] [place] [address] [phone] (work) documented as of this encounter Goals Goal [...] documented as of this encounter Care Teams Design Sales Consultant Relationship Specialty Start Date End Date Radha Chang MD [address] [place] [address] PCP - General 03/05/[address] [place] [address] Retail Business Development Manager Dietitian, Registered 12/04/18 Radha Chang MD [address] [place] [address] Assigned PCP 01/13/22 Estela Jernigan, RN Retail Business Development Manager Diabetes Education 09/03/22 Mulugeta Gimneez PA-C [address] [address] Assigned Neuroscience Provider 11/03/22 Ella Sumner PA-C [address] [place] [address] Physician Nursing Administrator Dermatology 11/14/23 Perez Wheeler MD [address] [place] [address] Physician 12/05/23 Perez Wheeler MD [address] [place] [address] Assigned Surgical Provider 10/04/24 Ara Engel PA-C Dermatology [address] [place] [address] Assigned Dermatology Provider 12/04/24 documented as of this encounter
--- OUTSIDE RECORDS SUMMARY | 2025-05-12 02:10 | XMS_ITS | Patient Health Record ---
Author Organization [facility] Address [address] [place] [address] Care Team Providers Care Adjustment Supervisor Name Role Phone Charlene Radha Primary Care Provider ALEKSANDAR Hairston Unavailable [phone] Allergies Allergen (clinical drug ingredient) Drug/Non Drug Allergy documented on EMR Reaction Allergy Type Onset Date Status sertraline Zoloft Unknown Drug Allergy Active Hydrocodone Unknown Drug Allergy Activ e Reason For Referral No Information Medications Medication SIG (Take, Route, Frequency, Duration) Notes Start Date End Date Status Zetia 10 MG Tablet 1 tablet Orally Once a day Active Omeprazole 20 MG Capsule Delayed Release 1 capsule Orally Once a day Active Crestor 20 MG Tablet 1 tablet Orally Onc e a day Active Premarin 0.625 MG/GM Cream Vaginal Active Levothyroxine Sodium 25 MCG Tablet 1 tablet Orally Once a day Active Lisinopril Active Social History Social History : Social Info Question Answer Notes How often do you consume alcohol? Answer: never Recreational drug use Social Info Question Answer Notes Did you ever use recreational drugs? Answer: No Additional Details Category Social Info Options Details Occupation Current occupation: Retired Problems Problem Type SNOMED Code ICD Code Onset Dates Problem Status W/U Status Risk Notes Problem Chronic rhinitis (98949633) Chronic rhinitis (J31.0) Active confirmed Problem Sensorineural hearing loss (94013978) Asymmetric SNHL (sensorineural hearing loss) (H90.5) Active confirmed Plan Of Treatment No Information Insurance Providers Payer Name Payer Address Payer Phone Subscriber Number Group Number Insured Name Patient Relationship to Insured Coverage Start Date Coverage End Date [employer] [place] [place]ICARE [address] [address] [place], [place] [id number] Katy Dewey Self - patient is the insured Medical (General) History Medical History History ICD Code YEN aortic value problems thyroid disease diabetes HTN Heart disease Concussion Left SNHL Surgical History Surgery Date(Month/Year) finger surgery arthro knee RT Hospitalization History Reason Date(Month/Year) Same as Surgical history
--- OUTSIDE RECORDS SUMMARY | 2025-05-12 02:10 | XMS_ITS | Encounter Summary ---
Author Organization [place] Address [address] [place] [address]. [place] [address] Care Team Providers Care Pre Sales Architect Name Role Phone Radha Chang MD Primary Care Provider Love Andrew RD Unavailable Unavailable Radha Chang MD Unavailable Estela Jernigan RN Unavailable Mulugeta Gimenez PA-C Unavailable Ella Sumner PA-C Unavailable Perez Wheeler MD Unavailable Perez Wheeler MD Unavailable Ara Engel-C Unavailable [phone] Encounter Details Date Type Department Care Team (Late st Contact Info) Description 03/02/2025 Results Follow-Up [address] [phone] Radha Chang MD [address] [place] [address] Dx: E. coli UTI (Primary Dx) Social History Tobacco Use Types Packs/Day Years [...] re latives? 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 [address] [phone] Mulugeta Gimenez PA-C [address] [place] [address] [phone] documented as of this encounter Goals Goal Patient Goal Type Associated Problems Recent Progress Patient-Stated? Author Establish Regular Follow-Ups with PCP Care Plan HbA1C Not In Goal No Estela Jernigan, RN Get HbA1C Level in Goal Care Plan HbA1C Not In Goal Estela Sahu, RN Understand diabetes pathophysiology and disease progression Care Plan Diabetes Self-Management Education Needed to Optimize Self-Care Behaviors No Mat Jernigankie A, RN Healthy Eating - follow a healthy [...] as of this encounter Visit Diagnoses Diagnosis E. coli UTI- Primary Urinary tract infection, site not specified documented in this encounter Additional Health Concerns Active Problems Noted Date Diagnosed Date HbA1C Not In Goal 09/12/2022 Diabetes Self-Management Edu cation Needed to Optimize Self-Care Behaviors 09/12/2022 Assessment Noted Time PHQ-9 Depression Total Score: 4 12/12/19 19 11:53 AM CDT documented as of this encounter Care Teams Pre Sales Architect Relationship Specialty Start Date End Date Radha Chang MD [address] [place] [address] PCP - General 03/05/[address] [place] [address] Field Evidence Technician Dietitian, Registered 12/04/18 [place] [address] [place] [address] Assigned PCP 01/13/22 Estela Jernigan RN Field Evidence Technician Diabetes Education 09/03/22 Mulugeta Gimenez PA-C [address] [address] Assigned Neuroscience Provider 11/03/22 Ella Sumner PA-C [address] [place], [place] [address] Physician Psychiatric Social Worker Dermatology 11/14/23 Perez Wheeler MD [address] [place] [address] Physician 12/05/23 Perez Wheeler MD [address] [place] [address] 057855 Assigned Surgical Provider 10/04/24 Ara Engel PA-C Dermatology [address] [place] [address] Assigned Dermatology Provider 12/04/24 documented as of this encounter
--- OUTSIDE RECORDS SUMMARY | 2025-05-12 02:10 | XMS_ITS | Encounter Summary ---
Author Organization [place] Address [facility] [place] [address] Care Team Providers Care University Intern Name Role Phone Radha Chang MD Primary Care Provider Love Andrew RD Unavailable Unavailable Radha Chang MD Unavailable [phone] Estela Jernigan RN Unavailable [phone] Mulugeta GimenezC Unavailable [phone] Ella Sumner PA-C Unavailable [phone] Perez Wheeler MD Unavailable Perez Wheeler MD Unavailable Ara Engel-C Unavailable [phone] Encounter Details Date Type Department Care Team (Latest Contact Info) Description 03/31/2025 Travel Social History Tobacco Use Types Packs/Day Years [...] re latives? Twice a week 02/28/2025 Attends Hoahaoism Services Not on file 02/28 Active Member of Clubs or Organizations Not on f ile 02/28/2025 Attends Club or Organization Meetings Not on randolph e 02/28/2025 Marital Status Not on file 02/28/2025 PHQ-2 Answer Date Recorded PHQ-2 Score 0 03/02/2025 [facility] - Occupational Stress [...] Answer Date Recorded Do you have housing? 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 Gender Identity Not on file Sexual Orientation [...] Description 11/08/2025 8:00 AM CDT Office Visit [address] [phone] [place] [address] [place] [address] 11/09/2025 10:00 AM CDT Office Visit [facility] [address] [phone] Mulugeta Gimenez PA-C [address] [place] [address] [phone] documented as of this encounter Goals Goal [...] documented as of this encounter Care Teams University Intern Relationship Specialty Start Date End Date Radha Chang MD [address] [place] [address] PCP - General 03/05/[address] [place] [address] Fire Tower Keeper Dietitian, Registered 12/04/18 Radha Chang MD [address] [place] [address] Assigned PCP 01/13/22 Estela Jernigan RN Fire Tower Keeper Diabetes Education 09/03/22 Mulugeta Gimenez PA-C [address] [facility] [address] [place] [address] Assigned Neuroscience Provider 11/03/22 Ella Sumner PA-C [address] [facility] [place] [address] Physician Spindle Frame Carver Dermatology 11/14/23 Perez Wheeler MD [address] [place] [address] Physician 12/05/23 Perez Wheeler MD [address] [place] [address] Assigned Surgical Provider 10/04/24 Ara Engel PA-C Dermatology [address] [place] [address] Assigned Dermatology Provider 12/04/24 documented as of this encounter
--- OUTSIDE RECORDS SUMMARY | 2025-05-12 02:10 | XMS_ITS | Encounter Summary ---
Author Organization [place] Address [facility] [place] [address] Care Team Providers Care Transport Technician Name Role Phone Abril Chang MD Primary Care Provider Obdulia Abbott PA-C Unavailable [phone] Obdulia Abbott PA-C Unavailable [phone] Unavailable Unavailable Abril Chang MD Unavailable +[phone] Ronak Vann DO Unavailable [phone] Fartun Velez APRN IMMERSION METALCLEANER Unavailable + Abril Chang MD Unavailable +[phone] Ronak Vann DO Unavailable [phone] Abril Chang MD Unavailable +[phone] Estela Jernigan RN Unavailable [phone] Mulugeta Gimenez PA-C Unavailable [phone] Ella Sumner PA-C Unavailable [phone] Perez Wheeler MD Unavailable Perez Wheeler MD Unavailable Ella Sumner PA-C Unavailable [phone] Ella Sumner PA-C Unavailable [phone] Perez Wheeler MD Unavailable Ara Engel PA-C Unavailable [phone] Encounter Details Date Type Department Care Team (Late st Contact Info) Description 03/03/2009 Office Visit-[facility] [place] [address] [facility] [address] [place] [phone] hBarti Escuderofer, [address] [facility] [address] [place] [address] Social History Tobacco Use Types Packs/Day Years Used Date Smoking Tobacco: Former Cigarettes 0.2 2 Comments:QUIT AT AGE 12 Alcohol Use Standard Drinks/Week Comments No 0 (1 standard drink = 0.6 oz pur e alcohol) Comments No Sex and Gender Information Value Date Recorded Sex Assigned at Not on file 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 DATE: 03/03/2009 KATY MERAZ DATE OF : 1950 AGE: [age] years old Referring Physician: ABRIL CHANG Referring Clinic: [facility] CURRENT DIAGNOSES 1. - Murmur, 785.2 2. Aortic Valve Disease, 424.1 3. - Hyperlipidemia, 272.4 4. Hypothyroidism, 244.9 5. - Chest Pain-unspecified, 786.50 ALLERGIES Caffeine, Depression Zoloft, Tremors MEDICATIONS (prior to changes made today) 1. Aspirin 81 Mg, 1 p.o. daily 2. Citracal Caplets Plus D 1500 Mg-200 U, 1 p.o. daily 3. Fish Oil -, 1 p.o. daily 4. Multi-day Multiple Vitamins, 1 p.o. daily 5. Crestor 10 Mg, Dose/instruction UK 6. Zetia 10 Mg, 1 qPM 7. Premarin Vaginal 0.625 mg/gm, Take as Directed 8. Levothroid 0.025 mg, 1 p.o. daily 9. Nitrofurantoin macrocrystals 50 mg, 100mg prn 10. Omeprazole 20mg, 1 p.o. PRN as Directed CHIEF COMPLAINTS HISTORY OF PRESENT ILLNESS: Ms. Meraz is a pleasant 58-year-old female who I have seen in the past for symptoms of chest discomfort. She also has a history of aortic sclerosis and hyperlipidemia. She returns to clinic today for a follow-up visit. She did undergo a stress echocardiogram on 02/24/2009. She walked for 6 minutes and 13 seconds on a Jeramie protocol. This is about a minute and a half less than what she had done about 2 years ago. She did not have ischemic changes on electrocardiogram and her echocardiogram portion was normal. She did, however, have very short runs of supraventricular tachycardia noted with exercise. These were very short lived and self-limiting and she did not have any symptoms in association with this. She has not experienced any chest discomfort since ourlast visit. She has been active in a dance program although in talking with her it does not sound as though she is gaining much aerobic benefit from this. She is not doing any other forms of exercise. Her last cholesterol profile was back in October of 2008. She did have mildly elevated liver function tests at that time as she has in the past. Her blood pressure in the office today is 130/78, pulse is 78 and regular, body mass index is 32. Her weight is 200 pounds. That is up about 5 pounds from her previous visit last year. On exam, she has normal carotid upstrokes without bruits bilateral. Cardiovascular tones are regular. She does have a soft systolic ejection murmur heard best at the right upper sternal border. I do not appreciate a gallop or rub. Her lungs are clear posteriorly without wheezing or rales. Abdomen is soft. No abdominal bruits are appreciated. She has no peripheral edema with strong symmetric pulses in the upper and lower extremities. PAST HISTORY Past Medical Illnesses: hypothyroidism, uterine lipoma,osteoarthritis,gerd,fatty liver, hyperlipidemia, labyrinthitis, chronic liver disease-fatty liver, glucose intolerance (elevated A1c 03/21) Past Cardiac Illnesses: murmur, Aortic valve disease, chest pain, YEN-CPAP Infectious History: usual childhood illnesses of mumps, measles and chickenpox Trauma History: metacarpal FX Surgeries/Procedures - General: arthroscopic knee surgery Cardiology Procedures-Noninvasive: echocardiogram June 2005, myocardial perfusion imaging (Nuclear) July 2005, stress echo Feb 2009 PMHx Echo Results: 06/18, EF 55-60%, trace to mild AR, trace TR, trace MR, trace IN, 03/21-mild aortic cusp sclerosis, tr AR-no significant change PMHx Stress Echo Results: 02/20 normal, no ischemia Left Ventricular Ejection Fraction: EF50% by Echo -June 2005, EF 66% by nuclear study 2005, 03/21-EF 55-60% by echo Nuclear Results: 07/20 negative for ischemia FAMILY HISTORY: Father - CAD, hypercholesterolemia and pacemaker; Mother - , diabetes- Type II (NIDDM) and [place]; Sister 1 - diabetes-Type II (NIDDM) and hypercholesterolemia; CARDIAC RISK FACTORS Tobacco Abuse: negative; Family History of Heart Disease: strong family history of heart disease; Hyperlipidemia: positive; Hypertension: positive; Diabetes Mellitus: negative; Prior History of HeartDisease: negative; Obesity:positive; Sedentary Life Style:positive; Age:negative; Menopausal:positive ; LDL Goal <LT> 100 SOCIAL HISTORY Alcohol Use - does not use alcohol; Smoking - never smoked; Diet - regular diet without modifications and caffeine use-rare; Lifestyle - ; Exercise - some exercise; Seat Belt Use - always; 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 INTEGUMENTARY denies any change in hair or nails, rashes, or skin lesions. EYES wears eye glasses/contact lenses EARS, NOSE, THROAT, MOUTH denies any hearing loss, epistaxis, hoarseness or difficulty speaking. RESPIRATORY denies dyspnea, cough, wheezing or hemoptysis. CARDIOVASCULAR per HPI ABDOMINAL denies ulcer disease, hematochezia or melena. MUSCULOSKELETAL denies any history of arthritic symptoms or back problems. NEUROLOGICAL headaches, few lately PSYCHIATRIC denies any history of depression, substance abuse or change in cognitive functions. ENDOCRINE denies any history of thyroid disease or diabetes mellitus. HEMATOLOGICAL/IMMUNOLOGIC denies any food allergies, seasonal allergies, bleeding disorders. PHYSICAL EXAMINATION VITAL SIGNS: Blood Pressure: 130/78 Sitting, Left arm, large cuff Pulse- 78.00/min. Weight- 200.00 lbs. Height- 66.00 Temperature- .00 CONSTITUTIONAL cooperative, alert and oriented,well developed, well nourished, in no acute distress. SKIN warm and dry to touch, no apparent skin lesions, or masses noted. HEAD normocephalic, no masses, no skin lesions, non tender to palpation EYES conjunctivae and lids unremarkable, Pupils equal and round ENT ears, nose and throat unremarkable NECK carotid pulses are full and equal bilaterally, JVP normal, no carotid bruit, no thyromegaly CHEST normal symmetry, no tenderness to palpation, normal respiratory excursion, no intercostal retraction, no use of accessory muscles, clear to auscultation and percussion. CARDIAC Regular rhythm with a 1/6 early systolic murmur heard best at the LLSB and apex. No diastolic murmur PERIPHERAL PULSES pulses full and equal in all extremities, no bruits auscultated. EXTREMITIES & BACK no deformities, clubbing, cyanosis, erythema or edema observed. There are no spinal abnormalities noted. Normal muscle strength and tone. PSYCHIATRIC no difficulties with speech or language, normal memory NEUROLOGICAL no gross motor deficits noted, affect appropriate, oriented to time, person and place. MEDICATIONS UPDATED/STARTED TODAY: Premarin Vaginal 0.625 mg/gm, Take as Directed, 0 Levothroid 0.025 mg, 1 p.o. daily, 0 Nitrofurantoin macrocrystals 50 mg, 100mg prn, 0 Omeprazole 20mg, 1 p.o. PRN as Directed, 0 MEDICATIONS REFILLED/STOPPED TODAY: Levothroid 0.125 mg Physician Order and Prilosec 20 mg PRN 0 Physician Order IMPRESSION/PLAN In summary, Ms. Meraz is a pleasant 58-year-old female with a history of chest discomfort now resolved, hyperlipidemia and aortic sclerosis. She has had trace aortic insufficiency in the past. This has remained unchanged in the last two years. Overall she is doing quite well. She has not had any recurrent chest discomfort. Her cholesterol profile appears to be well controlled on her current regimen of Crestor and Zetia although she does have mildly elevated liver function tests that need to be followed. This is being followed through her primary care provider. I have encouraged her to increase her level of activity to gain some aerobic benefit and I would prefer that she do this at least 3 times per week for overall cardiovascular health and weight maintenance. I will be happy to see her back on an annual basis. Please feel free to contact me with any questions you have in regards to her care. TODAYS ORDERS 1. Return Visit 1 year CNoel Escudero D.O. documented in this encounter Plan of Treatment Upcoming Encounters Date Type Department Care Team (Late st Contact Info) Description 11/08/2025 8:00 AM CDT Office Visit [facility] [address] [place] [phone] Abril Chang MD [address] [place] [address] 11/09/2025 10:00 AM CDT Office Visit [facility] [place] [address] [place] [phone] Mulugeta Gimenez PA-C [address] [facility] [address] [place] [phone] documented as of this encounter Visit Diagnoses Not on filedocumented in this encounter Additional Health Concerns Infection Onset Date Last Indicated Resolved Time Rule Out COVID-19 02/26/2022 02/26/2022 02/27/2022 8:27 PM CDT documented as of this encounter Care Teams Transport Technician Relationship Specialty Start Date End Date Abril Chang MD [address] [place] [id number] PCP - General 03/05/03 Obdulia Abbott PA-C [address] [facility] [place] [address] PCP - Assigned PCP 12/22/17 09/16/18 Obdulia Abbott PA-C [address] [place] [address] Assigned PCP 12/22/17 11/22/[address] [place] [address] Barn And Property Manager Dietitian, Registered 12/04/18 Abril Chang MD [address] [place] [address] Assigned PCP 11/23/18 01/07/21 Ronak Vann DO [address] [place] [address] Assigned PCP 01/08/21 04/01/21 Fartun Velez APRN IMMERSION METALCLEANER [address] [place] [address] Assigned PCP 04/02/21 06/17/21 Abril Chang MD [address] [place] [address] Assigned PCP 06/18/21 07/22/21 Ronak Vann DO [address] [place] [address] Assigned PCP 07/23/21 01/12/22 Abril Chang MD [address] [place] [address] Assigned PCP 01/13/22 Estela Jernigan RN Barn And Property Manager Diabetes Education 09/03/22 Mulugeta Gimenez PA-C [address] [place] [id number] Assigned Neuroscience Provider 11/03/22 Ella Sumner PA-C [address] [place] [address] Physician Fireperson Dermatology 11/14/23 Perez Wheeler MD [address] [place] [address] Physician 12/05/23 Perez Wheeler MD [address] [place] [address] Assigned Surgical Provider 02/04/24 05/05/24 Ella Sumner PA-C [address] [place] [address] Assigned Surgical Provider 05/06/24 10/03/24 Ella Sumner PA-C [address] [place] [place] [address] Assigned Dermatology Provider 10/04/24 12/03/24 Perez Wheeler MD [address] [place] [address] Assigned Surgical Provider 10/04/24 Ara Engel PA-C Dermatology [address] [place] [address] Assigned Dermatology Provider 12/04/24 documented as of this encounter
--- OUTSIDE RECORDS SUMMARY | 2025-05-12 02:10 | XMS_ITS | Encounter Summary ---
Author Organization [place] Address [address] [place] [address]. [place] [address] Care Team Providers Care Nnp Name Role Phone Radha Chang MD Primary Care Provider Love Andrew RD Unavailable Unavailable Radha Chang MD Unavailable [phone] Estela Jernigan RN Unavailable Mulugeta Gimenez PA-C Unavailable Ella Sumner PA-C Unavailable Perez Wheeler MD Unavailable Perez Wheeler MD Unavailable Ara Engel-C Unavailable [phone] Encounter Details Date Type Department Care Team (Late st Contact Info) Description 04/05/2025 Results Follow-Up [address] [phone] Radha Chang MD [address] [place] [address] Subj: Message about your results Social History Tobacco Use Types Packs/Day Years [...] re latives? 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 Author Establish Regular Follow-Ups with PCP Care Plan HbA1C Not In Goal No Estela Jernigan, RN Get HbA1C Level in Goal Care Plan HbA1C Not In Goal No Estela Jernigan, RN Understand diabetes pathophysiology and disease progression [...] Education Needed to Optimize Self-Care Behaviors Estela Shau RN Problem Solving - know how to [...] documented as of this encounter Care Teams Nnp Relationship Specialty Start Date End Date Radha Chang MD [address] [place] [address] PCP - General 03/05/[address] [place] [address] Billet Checker Dietitian, Registered 12/04/18 Radha Chang MD [address] [place] [address] Assigned PCP 01/13/22 Estela Jernigan, RN Billet Checker Diabetes Education 09/03/22 Mulugeta Gimenez PA-C [address] [address] Assigned Neuroscience Provider 11/03/22 Ella Sumner PA-C [address] [facility] [place] [address] Physician Drawing Operator Dermatology 11/14/23 Perez Wheeler MD [address] [place] [address] Physician 12/05/23 Perez Wheeler MD [address] [place] [address] Assigned Surgical Provider 10/04/24 Ara Engel PA-C Dermatology [address] [place] [address] Assigned Dermatology Provider 12/04/24 documented as of this encounter
--- OUTSIDE RECORDS SUMMARY | 2025-05-12 02:11 | XMS_ITS ---
Care Plan Created on: May 12, 2025 Katy Calvin : 1950 Sex: Female Author Organization [place] Address [address] [place] [address]. [place] [address] Care Team Providers Care Refrigerating Technician Name Role Phone Radha Chang MD Primary Care Provider Love Andrew RD Unavailable Unavailable Radha Chang MD Unavailable [phone] Estela Jernigan RN Unavailable Mulugeta Gimenez PA-C Unavailable Ella Sumner PA-C Unavailable Perez Wheeler MD Unavailable Perez Wheeler MD Unavailable Ara Engel PA-C Unavailable Active Problems Problem Noted Date Diagnosed Date [...] controlled - resolved with that medication 01/21/2023 [place] or callus- right medial 2nd toe 01/21/2023 [...] actinic keratoses 04/14/2012 Adenomatous Polyp of Colon-2 [id number] 2013 and 2020 = both clear - [...] Relationship Phone Primary Health Care Agent Anthony ([place]) Nikunj Alternative Health Care Agent Raheel Calvin Son [phone] Cell Her son , Raheel Calvin, is pt's designated health care decision maker in case her is not available. Pt is concerned that her daughters, Marzena Mcneal (hx of bipolar disorder, substance abuse and manipulative behaviors) and Katelyn Calvin (who can be very verbally aggressive) would NOT be reliable for care for pt in the future. Katy Calvin stated very clearly to me today that she does NOT want her daughters with ANY decision making capabilities for her care, whatsoever. ---Radha Chang MD .December 11, 2018 Discussed advance care planning with patient; information given to patient to review. 2010 and again, December 11, 2018 ---Radha Chang MD Left message for patient to call back to arrange facilitation if desired for completion of Advanced Care Directive. Jillian Lomeli LPN/Advanced Healthcare Planning Lithograph Operator 02/06/11 Advance Care Planning 12/17/2016: ACP Review of Chart / Resources Provided: Reviewed chart for advance care plan. Katy Calvin has been provided information and resources to begin or update their advance care plan. Added by Sylvie Rodríguez Leiomyoma of uterus 03/23/2003 10/22/19 10 Overview (04/14/2015): Problem list name updated by automated process. Provider to review UTI (urinary tract infection) 03/23/2003 03/21/2011 Overview (04/14/2015): Problem list name updated by automated process. Provider to review Primary localized osteoarthrosis, hand 03/23/2003 03/21/2011 Mucous polyp of cervix 03/23/200310/21 Benign neoplasm of colon 01/2011 Overview (10/11/2006): needs repeat in 2007 Additional Health Concerns Active Problems Noted Date Diagnosed Date HbA1C Not In Goal 09/12/2022 Diabetes Self-Management Edu cation Needed to Optimize Self-Care Behaviors 09/12/2022 Goals Goal Patient Goal Type Associated Problems [...] to Optimize Self-Care Behaviors Estela Sahu RN Interventions Care Plan Interventions Intervention Entry Date Outcome Provide education on when to seek professional counseling 09/12/2022 Provide education on tobacco cessation 09/12/2022 Provide education on how to care for diabetes on sick days 09/12/2022 Provide education on safe travel with diabetes 09/12/2022 Discuss barriers to medication adherence with patient and provide management technique ideas as appropriate 09/12/2022 Provide education on insulin and injectable diabetes medications, including administration, storage, site selection and rotation for injection sites 09/12/2022 Provide education on ketone monitoring (when to monitor, frequency, etc.) 09/12/2022 Provide education on continuous glucose monitoring (sensor placement, use of jesús or deal architect/reader, understanding glucose trends, alerts and alarms, differences between sensor glucose and blood glucose) 09/12/2022 Explore community resources including walking groups, assistance programs, and home videos 09/12/2022 Develop physical activity plan with patient 09/12/2022 Discuss barriers to physical activity with patient 09/12/2022 Develop individualized healthy eating plan with patient 09/12/2022 Discuss diabetes treatment plan with patient 09/12/2022 Refer patient to appropriate extended care team sports sales associate, as needed (Medication Therapy Management, Behavioral Health, Physical Therapy, etc.) 09/12/2022 Educate patient on benefits of regular glucose monitoring 09/12/2022 Educate patient on diabetes education self-management topics 09/12/2022 Discuss schedule for PCP visits with patient 09/12/2022 Discuss with PCP the recommended timing for patient's next follow up visit(s) 09/12/2022 Related Goals and Interventions Goal Associated Intervent ions Establish Regular Follow-Ups with PCP Grace cox schedule for PCP visits with patient; Discuss with PCP the recommended timing for patient's next follow up visit(s) Get HbA1C Level in Goal Discuss diabetes treatment plan with patient; Refer patient to appropriate extended care team sports sales associate, as needed (Medication Therapy Management, Behavioral Health, Physical Therapy, etc.); Educate patient on benefits of regular glucose monitoring; Educate patient on diabetes education self-management topics Healthy Eating - follow a he althy eating pattern for diabetes Develop individualized healthy eating pl an with patient Being Active - get regular p hysical activity, working up to at least 150 minutes per week Explore community resources including walking groups, assistance programs, and home videos; Develop physical activity plan with patient; Discuss barriers to physical activity with patient Monitoring - monitor glucose and ketones as directed Provide education on ketone monitoring (when to monitor, frequency, etc.); Provide education on continuous glucose monitoring (sensor placement, use of jesús or deal architect/reader, understanding glucose trends, alerts and alarms, differences between sensor glucose and blood glucose) Taking Medication - patient is consistently taking medications as directed Discuss barriers to medication adherence with patient and provide management technique ideas as appropriate; Provide education on insulin and injectable diabetes medications, including administration, storage, site selection and rotation for injection sites Problem Solving - know how t o prevent and manage short-term diabetes complications Provide education on how to care for diabetes on sick days; Provide education on safe travel with diabetes Reducing Risks - know how to prevent and treat long-term diabetes complications Provide education on tobacco cessation Healthy Coping - use availab le resources to cope with the challenges of managing diabetes Provide education on when to seek professional counseling
--- OUTSIDE RECORDS SUMMARY | 2025-05-12 02:11 | XMS_ITS | Encounter Summary ---
Author Organization [place] Address [facility]0 [facility] [place] [address] Care Team Providers Care Shoe Repairer Name Role Phone Abril Chang MD Primary Care Provider Obdulia Abbott PA-C Unavailable [phone] Obdulia Abbott PA-C Unavailable [phone] Unavailable Unavailable Abril Chang MD Unavailable +[phone] Ronak Vann DO Unavailable [phone] Fartun Velez APRN COMMERCIAL REAL ESTATE MANAGER Unavailable + Abril Chang MD Unavailable +[phone] Ronak Vann DO Unavailable [phone] Abril Chang MD Unavailable +[phone] Estela Jernigan RN Unavailable [phone] Mulugeta Gimenez PA-C Unavailable [phone] Ella Sumner PA-C Unavailable [phone] Perez Wheeler MD Unavailable Perez Wheeler MD Unavailable Ella Sumner PA-C Unavailable [phone] Ella Sumner PA-C Unavailable [phone] Perez Wheeler MD Unavailable Ara Engel PA-C Unavailable [phone] Encounter Details Date Type Department Care Team (Late st Contact Info) Description 03/18/2007 Office Visit-[facility] [place] [address] [facility] [address] [phone] Bharti Escudero, [address] [facility] [address] [address] Social History Tobacco Use Types Packs/Day Years Used Date Smoking Tobacco: Former Cigarettes 0.2 2 Comments:QUIT AT AGE 12 Alcohol Use Standard Drinks/Week Comments No 0 (1 standard drink = 0.6 oz pur e alcohol) Comments No Sex and Gender Information Value Date Recorded Sex Assigned at Not on file Legal Sex Female 3:08 AM RADIO REPORTER Gender Identity Not on file Sexual Orientation Not on file 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 [id number] DATE: 03/18/2007 KATY MERAZ DATE OF : 1950 AGE: [age] years old Referring Physician: ABRIL CHANG Referring Clinic: [facility] CURRENT DIAGNOSES 1. - Murmur, 785.2 2. Aortic Valve Disease, 424.1 3. - Hyperlipidemia, 272.4 4. Hypothyroidism, 244.9 5. - Chest Pain-unspecified, 786.50 ALLERGIES Caffeine, Depression Zoloft, Tremors MEDICATIONS (prior to changes made today) 1. Crestor 10 mg, Dose/instruction UK 2. Aspirin 81 mg, 1 p.o. q.d. 3. Prilosec 20 mg, PRN 4. Multi-Day Multiple Vitamins, 1 p.o. q.d. 5. Fish Oil -, 1 p.o. q.d. 6. Citracal Caplets Plus D 1500 mg-200 u, 1 p.o. q.d. 7. Zetia 10 mg, 1 qPM CHIEF COMPLAINTS Echo HISTORY OF PRESENT ILLNESS I had the pleasure of seeing your patient today in the clinic, Katy Meraz. As you know, sheis a pleasant 56-year-old female with a history of hypertension, hyperlipidemia, and newly diagnosed obstructive sleep apnea. She also has chronic liver disease with fatty liver. She has been tried on several different types of medications for her hyperlipidemia. However due to her chronic liver disease, she has had difficulty staying on any medication because of elevated liver function tests. She is currently on Zetia 10 mg and Crestor 10 mg. She cannot recall the last time that she had liver function tests to evaluate for any liver abnormalities. She denies any symptoms of chest pain or shortness of breath. She seems to have most difficulties with urinary tract infections lately. She is not active or exercising on a routine basis. She also notes some dietary indiscretions. She does havea strong family history of diabetes and is concerned about this today. She has a lot of pain and discomfort in her feet, particularly the tops of her feet. She also notes that she is quite clumsy andhas been falling recently more so than usual. She does feel off balance and has some lightheadedness as well. She denies palpitations, orthopnea, PND, or peripheral edema. VITALS: Blood pressure is 130/78. Pulse is 82 and regular. PAST HISTORY Past Medical Illnesses: hypothyroidism, uterine lipoma,osteoarthritis,gerd,fatty liver, hyperlipidemia, labyrinthitis, chronic liver disease-fatty liver Past Cardiac Illnesses: murmur, Aortic valve disease, chest pain, YEN-CPAP Infectious Diseases: usual childhood illnesses of mumps, measles and chickenpox Surgical Procedures: arthroscopic knee surgery Trauma History: metacarpal FX Cardiology Procedures-Noninvasive: echocardiogram June 2005, myocardial perfusion imaging (Nuclear) July 2005 Left Ventricular Ejection Fraction: EF50% by Echo -June 2005, EF 66% by nuclear study 2005 PMHx Echo Results: 06/18, EF 55-60%, trace to mild AR, trace tricuspid regurgitation, trace MR, trace pulmonic valvular regurgitation Nuclear Results: 07/20 negative for ischemia FAMILY HISTORY: Father - CAD, hypercholesterolemia and pacemaker; Mother - , diabetes- Type II (NIDDM) and [place]; Sister 1 - diabetes-Type II (NIDDM) and [...] Belt Use - always; 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 GENITOURINARY-FEMALE frequency MUSCULOSKELETAL history of osteoarthritis, pain, feet NEUROLOGICAL denies any history of recurrent headaches, strokes, TIA, or seizure disorder. PSYCHIATRIC denies any history of depression, substance abuse or change in cognitive functions. ENDOCRINE fatigue HEMATOLOGICAL/IMMUNOLOGIC allergy to caffeine PHYSICAL EXAMINATION VITAL SIGNS: Blood Pressure: 130/78 Sitting, Left arm, large cuff Pulse- 82.00/min. Weight- 209.00 lbs. Height- 66.00 Temperature- .00 CONSTITUTIONAL cooperative, [...] time, person and place. MEDICATIONS UPDATED/STARTED TODAY: Crestor 10 mg, Dose/instruction UK, DIRECTED IMPRESSIONS/PLAN In summary, Ms. Katy Meraz is a pleasant 56-year-old female with hypertension, hyperlipidemia, chronic liver disease, and obstructive sleep apnea. 1. Hyperlipidemia. I do not have any record of liver function tests today. I do have some records from clinic visits. However, there is no mention of liver function tests. Therefore, I will test her liver function tests today to determine whether she is tolerating her medications well. I also recommended a repeat fasting lipid profile annually to measure her cholesterol levels. 2. Diabetes. Patient has a strong family history of diabetes. She says that she has been tested for this in the past. However, she does not recall when she was last tested. She does have significant risk factors for developing diabetes including her family history as well as her obesity and sedentary lifestyle. I will add a hemoglobin A1C to laboratory values today. I will relay those values to you once I receive them. 3. Obstructive sleep apnea. Patient was recently diagnosed and is now using a C-PAP machine. I have instructed her on the necessity to be very compliant with this machine and also that diet and exercise and weight loss will also help with this disease process. I would like to see Katy back in the clinic in a year. I feel that she should probably have a stress test every three years. She had a transthoracic echocardiogram done today by Dr. Daigle. This does not show any significant change. She has trace aortic regurgitation that does not require SBE pro phylaxis. Her ejection fraction is 55% to 60%. No wall motion abnormalities or other valvular abnormalities are noted. TODAYS ORDERS 1. Hbg A1C Today 2. Lipid profile/ALT Today Agustin Escudero D.O. documented in this encounter Plan of Treatment Upcoming Encounters Date Type Department Care Team (Late st Contact Info) Description 11/08/2025 8:00 AM CDT Office Visit [address] [phone] Abril Chang MD [address] [place] [address] 11/09/2025 10:00 AM CDT Office Visit [facility] [address] [phone] Mulugeta Gimenez PA-C [address] [facility] [address] [address] documented as of this encounter Visit Diagnoses Not on filedocumented in this encounter Additional Health Concerns Infection Onset Date Last Indicated Resolved Time Rule Out COVID-19 02/26/2022 02/26/2022 02/27/2022 8:27 PM CDT documented as of this encounter Care Teams Shoe Repairer Relationship Specialty Start Date End Date Abril Chang MD [address] [place] [address] [id number] PCP - General 03/05/03 Obdulia Abbott PA-C [address] [facility] [place] [address] PCP - Assigned PCP 12/22/17 09/16/18 Obdulia Abbott PA-C [address] [facility] [place] [id number] Assigned PCP 12/22/17 11/22/[address] [facility] [place] [phone] Spot Worker Dietitian, Registered 12/04/18 Abril Chang MD [address] [place] [address] Assigned PCP 11/23/18 01/07/21 Ronak Vann DO [address] [place] [address] Assigned PCP 01/08/21 04/01/21 Fartun Velez, LABORER ELECTROPLATING COMMERCIAL REAL ESTATE MANAGER [address] [place] [address] Assigned PCP 04/02/21 06/17/21 Abril Chang MD [address] [place] [address] Assigned PCP 06/18/21 07/22/21 Ronak Vann DO [address] [place] [address] [phone] Assigned PCP 07/23/21 01/12/22 Abril Chang MD [address] [place] [address] [phone] Assigned PCP 01/13/22 Estela Jernigan RN Spot Worker Diabetes Education 09/03/22 Mulugeta Gimenez PA-C [address] [address] Assigned Neuroscience Provider 11/03/22 Ella Sumner PA-C [address] [place] [address] Physician Poultry Picker Dermatology 11/14/23 Perez Wheeler MD [address] [place] [address] [phone] Physician 12/05/23 Perez Wheeler MD [address] [place] [address] Assigned Surgical Provider 02/04/24 05/05/24 Ella Sumner PA-C [address] [place] [address] Assigned Surgical Provider 05/06/24 10/03/24 Ella Sumner PA-C [address] [place] [address] Assigned Dermatology Provider 10/04/24 12/03/24 Perez Wheeler MD [address] [place] [address], [place] [address] [place] [address] Assigned Surgical Provider 10/04/24 Ara Engel PA-C Dermatology [address] [place] [phone] Assigned Dermatology Provider 12/04/24 documented as of this encounter
--- OUTSIDE RECORDS SUMMARY | 2025-05-12 02:11 | XMS_ITS | Encounter Summary ---
Author Organization [place] Address [facility]0 [facility] [place] [address] Care Team Providers Care Apprentice Plumber Name Role Phone Abril Chang MD Primary Care Provider Obdulia Abbott PA-C Unavailable [phone] Obdulia Abbott PA-C Unavailable [phone] Unavailable Unavailable Abril Chang MD Unavailable +[phone] Ronak Vann DO Unavailable [phone] Fartun Velez APRN SECTION HAND Unavailable + Abril Chang MD Unavailable [phone] Ronak Vann DO Unavailable [phone] Abril Chang MD Unavailable +[phone] Estela Jernigan RN Unavailable [phone] Mulugeta Gimenez PA-C Unavailable [phone] Ella Sumner PA-C Unavailable [phone] Perez Wheeler MD Unavailable Perez Wheeler MD Unavailable Ella Sumner PA-C Unavailable [phone] Ella Sumner PA-C Unavailable [phone] Perez Wheeler MD Unavailable Ara Engel PA-C Unavailable [phone] Encounter Details Date Type Department Care Team (Late st Contact Info) Description 09/25/2010 Office Visit-[facility] [place] [address] [facility] [address] [phone] Bharti Escuderofer, [address] [facility] [address] [address] Social History Tobacco Use Types Packs/Day Years Used Date Smoking Tobacco: Former Cigarettes 0.2 2 Comments:QUIT AT AGE 12 Alcohol Use Standard Drinks/Week Comments No 0 (1 standard drink = 0.6 oz pur e alcohol) Comments No Sex and Gender Information Value Date Recorded Sex Assigned at Not on file Legal Sex Female 3:08 AM DJANGO DEVELOPER Gender Identity Not on file Sexual Orientation Not on file 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 DATE: 09/25/2010 KATY MERAZ DATE OF : 1950 AGE: [age] years old Referring Physician: ABRIL CHANG Referring Clinic: [facility] CURRENT DIAGNOSES 1. - Hypertension, 401.1 2. - Murmur, 785.2 3. Aortic Valve Disease, 424.1 4. - Hyperlipidemia, 272.4 5. Hypothyroidism, 244.9 6. - Chest Pain-unspecified, 786.50 ALLERGIES Acetaminophen Atorvastatin Calcium Caffeine, Depression Hydrocodone Bit Sertraline HCl MEDICATIONS (prior to changes made today) 1. Aspirin 81 mg Tablet, 1 p.o. daily 2. Citracal Caplets Plus D 1500 Mg-200 U, 1 p.o. daily 3. Fish Oil -, 1 p.o. daily 4. Daily Multivitamin Tablet, 1 p.o. daily 5. Zetia 10 mg Tablet, 1 qPM 6. cholecalciferol (vitamin D3) 2,000 unit Tablet, 1 p.o. daily 7. Coricidin HBP Cough & Cold 4-30 mg Tablet, 1 p.o. PRN as Directed 8. Sinex Ultra Fine Mist 12-Hour 0.05 % Mist, 1 p.o. PRN as Directed 9. Premarin 0.625 mg/g Cream, Take as Directed 10. Nitrofurantoin Macrocrystal 50 mg Capsule, 100mg prn 11. Omeprazole 20 mg Capsule, Delayed Release(E.C.), 1 p.o. PRN as Directed 12. Crestor 10 mg Tablet, 1 p.o. daily 13. Levothyroxine 25 mcg Tablet, 1 p.o. daily 14. Nitrofurantoin ([id number]%) 100 mg Capsule, Take as Directed CHIEF COMPLAINTS HISTORY OF PRESENT ILLNESS Ms. Meraz is a pleasant 60-year-old female with a history of aortic sclerosis, hyperlipidemia,obstructive sleep apnea, and hypertension. She returns for a followup visit. Overall, she is feeling well from a cardiac perspective. She is suffering from sinusitis currently. This has been ongoing for over a month now. She has received an antibiotic course and over the counter nasal decongestantsincluding Coricidin for this, but it seems to be continuing to be problematic for her. She has not been using her CPAP machine at all. She was in [place] for about a month. She states she got a lot of aerobic exercise down there with line dancing, walking, and water aerobics. She does want to continue that but she has felt really tired lately and sleeping a lot with this sinus infection. On exam today her initial blood pressure is 147/88, but on recheck it is 138/85. Pulse is 65 and regular. Carotid arteries are brisk without bruit. Cardiovascular tones are regular without murmur, gallop, or rub. Lungs are clear posteriorly without wheezing or rales. She has no peripheral edema. PAST HISTORY Past Medical Illnesses: hypothyroidism, uterine lipoma,osteoarthritis,gerd,fatty liver, hyperlipidemia, labyrinthitis, chronic liver disease-fatty liver, glucose intolerance (elevated A1c 03/21) Past Cardiac Illnesses: murmur, Aortic valve disease, chest pain, YEN-CPAP Infectious History: usual childhood illnesses of mumps, measles and chickenpox Trauma History: metacarpal FX Surgeries/Procedures - General: arthroscopic knee surgery Cardiology Procedures-NonInvasive: echocardiogram June 2005, 07/25, myocardial perfusion imaging (Nuclear) July 2005, stress echo Feb 2009 PMHx Echo Results: 06/18, EF 55-60%, trace to mild AR, trace TR, trace MR, trace MD, 03/21-mild aortic cusp sclerosis, tr AR-no significant change, 07/25 mild Ao sclerosis, tr MR, TR, PVR, LA borderline dilated. PMHx Stress Echo Results: 02/20 normal, no ischemia Left Ventricular Ejection Fraction: EF<GT>50% by Echo -June 2005, EF 66% by nuclear study 2005, 03/21-EF 55- 60% by echo, 07/25 EF 60-65% by echo Nuclear Results: 07/20 negative for ischemia FAMILY HISTORY: Father - CAD, hypercholesterolemia and pacemaker; Mother - , diabetes- Type II (NIDDM) and [place]; Sister 1 - diabetes-Type II (NIDDM) and hypercholesterolemia; CARDIAC RISK FACTORS Tobacco Abuse: negative; Family History of Heart Disease: strong family history of heart disease; Hyperlipidemia: positive; Hypertension: positive; Diabetes Mellitus: negative; Prior History of Heart Disease: negative; Obesity:positive; Sedentary Life Style:positive; Age:negative; Menopausal:positive ; LDL Goal <LT> 100 SOCIAL HISTORY Alcohol Use - does not use alcohol; Smoking - never smoked; Diet - regular diet , trying to be better about diet and caffeine use-rare; Lifestyle - ; Exercise - walking, line dancing, some 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 and elyptical head animal trainer; Seat Belt Use - always; 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; SexualActivity - sexually active; Residence - lives with ; Place of - [place]; Spouse's Occ upation - business optometrist president/practice owner; REVIEW OF SYSTEMS GENERAL feeling better, getting over sinus virus, no change in weight, no change in appetite INTEGUMENTARY hair loss, change in hair texture EYES wears eye glasses/contact lenses EARS, NOSE, THROAT, MOUTH sinusitis, hoarseness RESPIRATORY productive cough, drainage CARDIOVASCULAR per HPI ABDOMINAL history of GERD MUSCULOSKELETAL history of osteoarthritis, muscle weakness NEUROLOGICAL denies any history of recurrent headaches, strokes, TIA, or seizure disorder. PSYCHIATRIC denies any history of depression, substance abuse or change in cognitive functions. ENDOCRINE hypothyroidism HEMATOLOGICAL/IMMUNOLOGIC denies any food allergies, seasonal allergies, bleeding disorders. PHYSICAL EXAMINATION VITAL SIGNS: Blood Pressure: 147/88Sitting, Right arm, large cuff 138/85Sitting, Right arm, Pediatric cuff Pulse- 65.00/min. Weight- 206.50 lbs. Height- 66.00 Temperature- .00 CONSTITUTIONAL cooperative, [...] carotid pulses are full and equal bilaterally, no JVD CHEST clear to auscultation CARDIAC S1 normal, S2 normal, no murmurs, gallops or rubs detected PERIPHERAL PULSES pulses full and equal in all extremities, no bruits auscultated. EXTREMITIES & BACK no clubbing, cyanosis or edema PSYCHIATRIC no difficulties with speech or language, normal memory NEUROLOGICAL no gross motor deficits noted, affect appropriate, oriented to time, person and place. MEDICATIONS UPDATED/STARTED TODAY: cholecalciferol (vitamin D3) 2,000 unit Tablet, 1 p.o. daily, #0 Coricidin HBP Cough & Cold 4-30 mg Tablet, 1 p.o. PRN as Directed, #0 Sinex Ultra Fine Mist 12-Hour 0.05 % Mist, 1 p.o. PRN as Directed, #0 MEDICATIONS REFILLED/STOPPED TODAY: Amoxicillin 500 mg Capsule 1 p.o. twice daily for ear inf #0 Treatment Completed IMPRESSIONS/PLAN In summary, Ms. Meraz is a pleasant 60-year-old female with a history of aortic sclerosis, hyperlipidemia, obstructive sleep apnea, and hypertension. I did review her echocardiogram with her today. This was done on August 09, essentially unchanged from her previous. She does continue to have mild aortic sclerosis without stenosis or insufficiency. Her LV systolic function is normal with normal diastolic dysfunction. Her left atrium is borderline dilated. Otherwise, this is a normal study.Her blood pressure is borderline elevated today. I did talk to her about this, continuing to monitor. She should use her CPAP machine, although I do realize it would be difficult right now with her cu rrent sinus problems. I have recommended follow up with her primary care provider for this. I have also recommended she continue with her regular aerobic fitness and a weight loss program. She does not need an annual echocardiogram based on her results today. I would recommend maybe every three to four years for continued monitoring of any progression of aortic valve disease or hypertensive heartdisease. I will have her follow up on an as needed basis only. Please feel free to contact me if you have any questions in regard to her care. Agustin Escudero D.O. documented in this encounter Plan of Treatment Upcoming Encounters Date Type Department Care Team (Late st Contact Info) Description 11/08/2025 8:00 AM CDT Office Visit [address] [phone] Abril Chang MD [address] [place] [address] 11/09/2025 10:00 AM CDT Office Visit [facility] [address] [place] [phone] Mulugeta Gimenez PA-C 7[address] [facility] [address] [place], [place] [phone] documented as of this encounter Visit Diagnoses Not on filedocumented in this encounter Additional Health Concerns Infection Onset Date Last Indicated Resolved Time Rule Out COVID-19 02/26/2022 02/26/2022 02/27/2022 8:27 PM CDT documented as of this encounter Care Teams Apprentice Plumber Relationship Specialty Start Date End Date Abril Chang MD [address] [place] [address] PCP - General 03/05/03 Obdulia Abbott PA-C [address] [place] [address] PCP - Assigned PCP 12/22/17 09/16/18 Obdulia Abbott PA-C [address] [place] [address] Assigned PCP 12/22/17 11/22/[address] [place] [address] Account Developer Dietitian, Registered 12/04/18 Abril Chang MD [address] [place] [address] Assigned PCP 11/23/18 01/07/21 Ronak Vann DO [address] [place] [address] Assigned PCP 01/08/21 04/01/21 Fartun Velez APRN CNP [address] [place] [address] Assigned PCP 04/02/21 06/17/21 Abril Chang MD [address] [place] [address] Assigned PCP 06/18/21 07/22/21 Ronak Vann DO [address] [place] [address] Assigned PCP 07/23/21 01/12/22 Abril Chang MD [address] [place] [address] Assigned PCP 01/13/22 Estela Jernigan RN Account Developer Diabetes Education 09/03/22 Mulugeta Gimenez PA-C [address] [phone] Assigned Neuroscience Provider 11/03/22 Ella Sumner PA-C [address] [place] [address] Physician Drafter Landscape Dermatology 11/14/23 Perez Wheeler MD [address] [place] [address] Physician 12/05/23 Perez Wheeler MD [address] [place] [id number] Assigned Surgical Provider 02/04/24 05/05/24 Ella Sumner PA-C [address] [place] [address] Assigned Surgical Provider 05/06/24 10/03/24 Ella Sumner PA-C [address] [facility] [place] [address] Assigned Dermatology Provider 10/04/24 12/03/24 Perez Wheeler MD [address] [place] [address] Assigned Surgical Provider 10/04/24 Ara Engel PA-C Dermatology [address] [place] [address] Assigned Dermatology Provider 12/04/24 documented as of this encounter
--- OUTSIDE RECORDS SUMMARY | 2025-05-12 02:11 | XMS_ITS | Encounter Summary ---
Author Organization [facility] Address [address] [place] [address]. [place] [address] Care Team Providers Care Sales Assistant Entertainment And Media Name Role Phone Radha Chang MD Primary Care Provider Loev Andrew RD Unavailable Unavailable Radha Chang MD Unavailable [phone] Estela Jernigan RN Unavailable [phone] Mulugeta Gimenez PA-C Unavailable [phone] Ella Sumner PA-C Unavailable [phone] Perez Wheeler MD Unavailable Perez Wheeler MD Unavailable Ella Sumner PA-C Unavailable [phone] Ella Sumner PA-C Unavailable [phone] Perez Wheeler MD Unavailable Ara Engel PA-C Unavailable [phone] Encounter Details Date Type Department Care Team (Late st Contact Info) Description 03/18/2024 MyC Medical Advice Initial Department [address] [place] [address] Sigifredo Philip Social History Tobacco Use Types Packs/Day Years Used Date Smoking Tobacco: Never Smokeless Tobacco: Never Alcohol Use Standard Drinks/Week Comments Yes 0 (1 standard drink = 0.6 oz pur e alcohol) rarely drink Social Connection and Isolation Panel Answer Date Recorded Frequency of Communication with Friends and Fami ly Not on file 02/25/2024 How often do you get together with friends or re latives? Twice a week 02/25/2024 Attends Muslim Services Not on file 02/24 Active Member of Clubs or Organizations Not on f ile 02/25/2024 Attends Club or Organization Meetings Not on randolph e 02/25/2024 Marital Status Not on file 02/25/2024 PHQ-2 Answer Date Recorded PHQ-2 Score 0 02/26/2024 [facility] - Occupational Stress Questionnaire Answer Date Recorded Do you feel stress - tense, restless, nervous, or anxious, or unable to sleep at night because your mind is troubled all the time - these days? Only a little 02/25/2024 Exercise Vital Sign Answer Date Recorde d On average, how many days pe r week do you engage in moderate to strenuous exercise (like a brisk walk)? 3 days 02/25/2024 On average, how many minutes do you engage in exercise at this level? 60 min 02/25/2024 Adolescent Education Answer Date Record ed Getting School Help Needed Not on file 04/23 Food Insecurity Answer Date Recorded Within the past 12 months, d id you worry that your food would run out before you got money to buy more? No 02/25/2024 Within the past 12 months, d id the food you bought just not last and you didn t have money to get more? No 02/25/2024 Housing Stability Answer Date Recorded Do you have housing? (Housin g is defined as stable permanent housing and does not include staying outside in a car, in a tent, in an abandoned building, in an overnight chcf, or couch-surfing.) Yes 02/25/2024 Are you worried about losing your housing? No 02/25/2024 Financial Resource Strain Answer Date R ecorded Within the past 12 months, h ave you or your family members you live with been unable to get utilities (heat, electricity) when it was really needed? No 02/25/2024 Transportation Needs Answer Date Record ed Within the past 12 months, h as lack of transportation kept you from medical appointments, getting your medicines, non-medical meetings or appointments, work, or from getting things that you need? No 02/25/2024 Interpersonal Safety Answer Date Record ed Do you feel physically and e motionally safe where you currently live? Yes 02/26/2024 Within the past 12 months, h ave you been hit, slapped, kicked or otherwise physically hurt by someone? No 02/26/2024 Within the past 12 months, h ave you been humiliated or emotionally abused in other ways by your partner or ex-partner? 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 Gender Identity Not on file Sexual [...] Description 11/08/2025 8:00 AM CDT Office Visit [address] [address] Radha Chang MD [address] [place] [address] [phone] 11/09/2025 10:00 AM CDT Office Visit [facility] [address] [phone] Mulugeta Gimenez PA-C [address] [place] [address] [phone] documented as of this encounter Goals Goal [...] to Optimize Self-Care Behaviors Estela Shau RN Monitoring - monitor glucose and ketones [...] documented as of this encounter Care Teams Sales Assistant Entertainment And Media Relationship Specialty Start Date End Date Radha Chang MD [address] [place] [phone] PCP - General 03/05/[address] [place] [address] Financial Services Director Dietitian, Registered 12/04/18 Radha Chang MD [address] [place] [address]365 Assigned PCP 01/13/22 Estela Jernigan, RN Financial Services Director Diabetes Education 09/03/22 Mulugeta Gimenez PA-C [address] [facility] [place] [address] [place] [phone] Assigned Neuroscience Provider 11/03/22 Ella Sumner PA-C [address] [facility] [place] [facility] [place] [address] Physician Author'S Agent Dermatology 11/14/23 Perez Wheeler MD [address] [place] [address] Physician 12/05/23 Perez Wheeler MD [address] [place] [address] [phone] Assigned Surgical Provider 02/04/24 05/05/24 Ella Sumner PA-C [address] [facility] [place] [address] Assigned Surgical Provider 05/06/24 10/03/24 Ella Sumner PA-C [address] [facility] [place] [address] Assigned Dermatology Provider 10/04/24 12/03/24 Perez Wheeler MD [address] [place] [address] [phone] Assigned Surgical Provider 10/04/24 Ara Engel PA-C Dermatology [address] [place] [address] [phone] Assigned Dermatology Provider 12/04/24 documented as of this encounter
--- OUTSIDE RECORDS SUMMARY | 2025-05-12 02:11 | XMS_ITS | Encounter Summary ---
Author Organization [facility] Address [address] [place] [address]. [place] [address] Care Team Providers Care Barrel Driller Name Role Phone Radha Chang MD Primary Care Provider Love Andrew RD Unavailable Unavailable Radha Chang MD Unavailable [phone] Estela Jernigan RN Unavailable [phone] Mulugeta Gimenez PA-C Unavailable [phone] Ella Sumner PA-C Unavailable [phone] Perez Wheeler MD Unavailable Perez Wheeler MD Unavailable Ella Sumner PA-C Unavailable [phone] Ella Sumner PA-C Unavailable [phone] Perez Wheeler MD Unavailable Ara Engel PA-C Unavailable [phone] Encounter Details Date Type Department Care Team (Late st Contact Info) Description 02/29/2024 MyC Medical Advice Initial Department [address] [place] [address] Sigifredo Philip Social History Tobacco Use Types [...] re latives? Twice a week 02/25/2024 Attends Holiness Services Not on file 02/24 Active Member of Clubs or Organizations Not on f ile 02/25/2024 Attends Club or Organization Meetings Not on randolph e 02/25/2024 Marital Status Not on file 02/25/2024 PHQ-2 Answer Date Recorded PHQ-2 Score 0 02/26/2024 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 Gender Identity Not on file Sexual Orientation [...] 11/08/2025 8:00 AM CDT Office Visit [address] [phone] Radha Chang MD [address] [place] [address] [phone] 11/09/2025 10:00 AM CDT Office Visit [facility] [address] [phone] Mulugeta Gimenez PA-C [address] [place] [address] [phone] documented as of this encounter Goals Goal [...] documented as of this encounter Care Teams Barrel Driller Relationship Specialty Start Date End Date Radha Chang MD [address] [place] [address] PCP - General 03/05/[address] [place] [address] Accountant Cost Dietitian, Registered 12/04/18 Radha Chang MD [address] [place] [address] Assigned PCP 01/13/22 Estela Jernigan, RN Accountant Cost Diabetes Education 09/03/22 Mulugeta Gimenez PA-C [address] [facility] [place] [address] [place] [phone] Assigned Neuroscience Provider 11/03/22 Ella Sumner PA-C [address] [facility] [place] [address] Physician Underwriting Analyst Dermatology 11/14/23 Perez Wheeler MD [address] [place] [address] Physician 12/05/23 Perez Wheeler MD [address] [place] [address] [phone] Assigned Surgical Provider 02/04/24 05/05/24 Ella Sumner PA-C [address] [facility] [place] [address] Assigned Surgical Provider 05/06/24 10/03/24 Ella Sumner PA-C [address] [facility] [place] [address] Assigned Dermatology Provider 10/04/24 12/03/24 Perez Wheeler MD [address] [place] [address] [phone] Assigned Surgical Provider 10/04/24 Ara Engel PA-C Dermatology [address] [place] [address] [phone] Assigned Dermatology Provider 12/04/24 documented as of this encounter
--- OUTSIDE RECORDS SUMMARY | 2025-05-12 02:11 | XMS_ITS | Encounter Summary ---
Author Organization [facility] Address [address] [place] [address]. [place] [address] Care Team Providers Care Hand Spring Repairer Helper Name Role Phone Radha Chang MD Primary Care Provider Love Andrew RD Unavailable Unavailable Radha Chang MD Unavailable [phone] Estela Jernigan RN Unavailable Mulugeta Gimenez PA-C Unavailable Ella Sumner PA-C Unavailable [phone] Perez Wheeler MD Unavailable Perez Wheeler MD Unavailable Ara Engel PA-C Unavailable [phone] Reason for Visit * Reason Onset Date Comments Medication Request 04/22/2025 Encounter Details Date Type Department Care Team (Late st Contact Info) Description 04/22/[address] [address] Radha Chang MD [address] [place] [address] Medication Request Social History Tobacco Use [...] re latives? 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 Advised patient to call [phone] and ask to speak to a triage nurse with any further questions or concerns. 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 Rx sent to pharmacy. Please inform patient. * Telephone Encounter - Whitney Steen RN - 04/22/2025 10:59 AM CDT Pt has dentist appointment today at 1 pm. Wonders if suppose to be taking Amoxicillin prior to seeing dentist, even for cleanings? Rx pended in case needs it. Please call pt with update. Whitney HYDE, RN, PHN documented in this encounter Plan of Treatment Upcoming Encounters Date Type Department Care Team (Late st Contact Info) Description 11/08/2025 8:00 AM CDT Office Visit [address] [phone] Radha Chang MD [address] [place] [address] [phone] 11/09/2025 10:00 AM CDT Office Visit [facility] [address] [phone] Mulugeta Gimenez PA-C 6[address] [facility] [address] [place], [place] [phone] documented as of this encounter Goals Goal [...] as of this encounter Visit Diagnoses Diagnosis Aortic valve sclerosis- mild - moderate - last echocardiogram 03/2024= 1.4cm2 decreased from 1.8 cm2 from 2021 -repeat echo in 03/2025 ### NEEDS SBE PROPHYLAXIS ### Aortic valve disorders documented in this encounter Additional Health Concerns Active Problems Noted Date Diagnosed Date HbA1C Not In Goal 09/12/2022 Diabetes Self-Management Edu cation Needed to Optimize Self-Care Behaviors 09/12/2022 Assessment Noted Time PHQ-9 Depression Total Score: 4 12/12/19 19 11:53 AM CDT documented as of this encounter Care Teams Hand Spring Repairer Helper Relationship Specialty Start Date End Date Radha Chang MD [address] [place] [address] PCP - General 03/05/[address] [place] [address] Novelty Twister Tender Dietitian, Registered 12/04/18 Radha Chang MD [address] [place] [address]761 Assigned PCP 01/13/22 Estela Jernigan RN Novelty Twister Tender Diabetes Education 09/03/22 Mulugeta Gimenez PA-C [address] [facility] [address] [place] [address] Assigned Neuroscience Provider 11/03/22 Ella Sumner PA-C 6401 [facility] [place] [address] Physician Head Bucker Dermatology 11/14/23 Perez Wheeler MD [address] [place] [address] Physician 12/05/23 Perez Wheeler MD [address] [place] [address] Assigned Surgical Provider 10/04/24 Ara Engel PA-C Dermatology [address] [place] [address] Assigned Dermatology Provider 12/04/24 documented as of this encounter
--- OUTSIDE RECORDS SUMMARY | 2025-05-12 02:11 | XMS_ITS | Encounter Summary ---
Author Organization [facility] Address [address] [place] [address]. [place] [address] Care Team Providers Care Quick Print Operator Name Role Phone Radha Chang MD Primary Care Provider Love Andrew RD Unavailable Unavailable Radha Chang MD Unavailable [phone] Estela Jernigan RN Unavailable [phone] Mulugeta Gimenez PA-C Unavailable [phone] Ella Sumner PA-C Unavailable [phone] Perez Wheeler MD Unavailable Perez Wheeler MD Unavailable Ella Sumner PA-C Unavailable [phone] Ella Sumner PA-C Unavailable [phone] Perez Wheeler MD Unavailable Ara Engel PA-C Unavailable [phone] Encounter Details Date Type Department Care Team (Late st Contact Info) Description 03/27/2024 MyC Medical Advice [facility] [address] [place] [address] Laya Babin, RN Social History Tobacco Use Types Packs/Day Years [...] re latives? 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 Gender Identity Not on file Sexual Orientation [...] Description 11/08/2025 8:00 AM CDT Office Visit [address] [phone] Radha Chang MD [address] [place] [address] [phone] 11/09/2025 10:00 AM CDT Office Visit [facility] [address] [place] [phone] Mulugeta Gimenez PA-C [address] [address] documented as of this encounter Goals Goal [...] documented as of this encounter Care Teams Quick Print Operator Relationship Specialty Start Date End Date Radha Chang MD [address] [place] [address] PCP - General 03/05/[address] [place] [address] Marzipan Maker Dietitian, Registered 12/04/18 Radha Chang MD [address] [place] [address] [phone] Assigned PCP 01/13/22 Estela Jernigan RN Marzipan Maker Diabetes Education 09/03/22 Mulugeta Gimenez PA-C [address] [address] Assigned Neuroscience Provider 11/03/22 Ella Sumner PA-C [address] [place] [address] Physician Crankshaft Straightener Dermatology 11/14/23 Perez Wheeler MD [address] [place] [address] Physician 12/05/23 Perez Wheeler MD [address] [place] [address] [phone] Assigned Surgical Provider 02/04/24 05/05/24 Ella Sumner PA-C [address] [place] [address] Assigned Surgical Provider 05/06/24 10/03/24 Ella Sumner PA-C [facility] [facility] [place] [address] Assigned Dermatology Provider 10/04/24 12/03/24 Perez Wheeler MD [address] [place] [address] [phone] Assigned Surgical Provider 10/04/24 Ara Engel PA-C Dermatology [address] [place] [address] Assigned Dermatology Provider 12/04/24 documented as of this encounter
--- OUTSIDE RECORDS SUMMARY | 2025-05-12 02:11 | XMS_ITS | Encounter Summary ---
Author Organization [place] Address [facility]ly [facility]0 [facility] [place] [address] Care Team Providers Care Utility Repairer Name Role Phone Abril Chang MD Primary Care Provider Obdulia Abbott PA-C Unavailable [phone] Obdulia Abbott PA-C Unavailable [phone] Unavailable Unavailable Abril Chang MD Unavailable +[phone] Ronak Vann DO Unavailable [phone] Fartun Velez APRN AGRONOMY RESEARCH MANAGER Unavailable + Abril Chang MD Unavailable +[phone] Ronak Vann DO Unavailable [phone] Abril Chang MD Unavailable +-[phone] Estela Jernigan RN Unavailable [phone] Mulugeta Gimenez PA-C Unavailable [phone] Ella Sumner PA-C Unavailable [phone] Perez Wheeler MD Unavailable Perez Wheeler MD Unavailable Ella Sumner PA-C Unavailable [phone] Ella Sumner PA-C Unavailable [phone] Perez Wheeler MD Unavailable Ara Engel PA-C Unavailable [phone] Encounter Details Date Type Department Care Team (Late st Contact Info) Description 03/11/2008 Office Visit-[facility] [place] [address] [facility] [address] [place] [phone] Bharti Escuderonifer, [address] [facility] [address] [place] [address] Social History Tobacco Use Types Packs/Day Years Used Date Smoking Tobacco: Former Cigarettes 0.2 2 Comments:QUIT AT AGE 12 Alcohol Use Standard Drinks/Week Comments No 0 (1 standard drink = 0.6 oz pur e alcohol) Comments No Sex and Gender Information Value Date Recorded Sex Assigned at Not on file 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 DATE: 03/11/2008 KATY MERAZ DATE OF : 1950 AGE: [age] years old Referring Physician: ABRIL CHANG Referring Clinic: [facility] CURRENT DIAGNOSES 1. - Murmur, 785.2 2. Aortic Valve Disease, 424.1 3. - Hyperlipidemia, 272.4 4. Hypothyroidism, 244.9 5. - Chest Pain-unspecified, 786.50 ALLERGIES Caffeine, Depression Zoloft, Tremors MEDICATIONS (prior to changes made today) 1. Aspirin 81 mg, 1 p.o. q.d. 2. Prilosec 20 mg, PRN 3. Multi-Day Multiple Vitamins, 1 p.o. q.d. 4. Fish Oil -, 1 p.o. q.d. 5. Citracal Caplets Plus D 1500 mg-200 u, 1 p.o. q.d. 6. Crestor 10 Mg, Dose/instruction UK 7. Zetia 10 Mg, 1 qPM CHIEF COMPLAINTS Follow up HISTORY OF PRESENT ILLNESS OFFICE NOTE March 11, 2008 Abril Chang MD Re: Katy Meraz : [birth year] Ms. Meraz is a very pleasant 57-year-old female who returns to the clinic today for her annualfollowup. As you know, she has a history of hyperlipidemia, with a history of chronic liver disease. She has had difficulties with chest discomfort in the past and mild aortic valvular disease. She has had a tough year since I last saw her. She had a separation from her and this was very emotionally traumatic for her. She states she lost approximately 30 pounds. She was having some chest discomfort during this time. She seems to have made amends with her , at least somewhat and she has not had any recurrence of this chest discomfort. It was mainly during the very emotional timein her life. She has recently had a hysterectomy and is recovering from this. She is having some mild abdominal discomfort and issues with urinating. She did have a bladder lift during the hysterectomy. She states she had been exercising on a fairly regular basis prior to the hysterectomy, without any difficulty and she is slowly getting back into this. She denies any difficulties with shortness of breath or recurrent chest discomfort, arm, or jaw pain. She had no symptoms of peripheral edema, lightheadedness, or dizziness. Blood pressure initially in office today was 150/84. In review, she has had pretty normotensive blood pressures in our office. She has a documented history of high blood pressure, although this is the first recording that we have and upon recheck, her blood pressure was 124/72. I did give her a blood pressure card today for her to monitor her blood pressure as an outpatient to determine whether she has any abnormally high readings. She has tolerated her medications over the past year without any difficulty. Her weight is 195 pounds today, which is down about 14 pounds from our last visit. Her physical examination is unchanged from our last visit. Lungs clear. Heart tones are within normal limits. And she does not have any peripheral edema. _ PAST HISTORY Past Medical Illnesses: hypothyroidism, uterine lipoma,osteoarthritis,gerd,fatty liver, hyperlipidemia, labyrinthitis, chronic liver disease-fatty liver, glucose intolerance (elevated A1c 03/21) Past Cardiac Illnesses: murmur, Aortic valve disease, chest pain, YEN-CPAP Infectious History: usual childhood illnesses of mumps, measles and chickenpox Trauma History: metacarpal FX Surgeries/Procedures - General: arthroscopic knee surgery Cardiology Procedures-Noninvasive: echocardiogram June 2005, myocardial perfusion imaging (Nuclear) July 2005 PMHx Echo Results: 06/18, EF 55-60%, trace to mild AR, trace TR, trace MR, trace TN, 03/21-mild aortic cusp sclerosis, tr AR-no significant change Left Ventricular Ejection Fraction: EF50% by Echo -June 2005, EF 66% by nuclear study 2005, 03/21-EF 55-60% by echo Nuclear Results: 07/20 negative for ischemia FAMILY HISTORY: Father - CAD, hypercholesterolemia and pacemaker; Mother - , diabetes- Type II (NIDDM) and [place]; Sister 1 - diabetes-Type II (NIDDM) and [...] Belt Use - always; 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 Weight- 195.80 lbs. Height- 66.00 Temperature- .00 CONSTITUTIONAL cooperative, [...] and place. MEDICATIONS UPDATED/STARTED TODAY: Crestor 10 Mg, Dose/instruction UK, #30 or #100 Zetia 10 Mg, 1 qPM, #30 or #100 MEDICATIONS REFILLED/STOPPED TODAY: Crestor 10 Mg Dose/instruction DIRECTED Refill and Zetia 10 mg 1 qPM 0 Refill IMPRESSIONS/PLAN In summary, Ms. Meraz is a very pleasant 57-year-old female with hyperlipidemia, symptoms of atypical chest discomfort, and aortic valvular disease. She will be due for a cholesterol measurementhere within the next couple of months. I do believe this is done through her primary care physician office. I have given her refills of her prescriptions for Zetia, as well as Crestor today. She is unsure where she receives these medications from. I did review with her that she should be increasingher exercise consistency, with a minimum of 3 times per week, 30 minutes at a time for overall cardiovascular health and weight maintenance. She is taking an aspirin on a daily basis and I would likeher to continue to do so. In regards to her symptoms of chest discomfort, this seemed to be at the time of extreme emotional stress. She has not had a recurrence of this. I would like her to have a stress test, although she is recovering from a hysterectomy currently. I do not feel that it needs to be done right away. I have ordered it to be done with her next visit here, although I have instructed her that if she has hadany recurrence of chest discomfort, any difficulties with her breathing, or change in her exercise tolerance that I would like her to come and be evaluated with a stress test. Please feel free to contact me with any questions you have in regards to her care. Last Echocardiogram reviewed from 2006, normal LV systolic Function EF 55-60% Mild aortic sclerosiswithout significant stenosis. Normal pulmonary pressures. Recommend repeat in 2008 TODAYS ORDERS 1. Return Visit 1 year 2. Treadmill Stress Echo 1 year Agustin Escudero D.O. documented in this encounter Plan of Treatment Upcoming Encounters Date Type Department Care Team (Late st Contact Info) Description 11/08/2025 8:00 AM CDT Office Visit [address] [phone] Abril Chang MD [address] [place] [address] 11/09/2025 10:00 AM CDT Office Visit [facility] [address] [phone] Mulugeta Gimenez PA-C [address] [facility] [address] [place], [place] [phone] documented as of this encounter Visit Diagnoses Not on filedocumented in this encounter Additional Health Concerns Infection Onset Date Last Indicated Resolved Time Rule Out COVID-19 02/26/2022 02/26/2022 02/27/2022 8:27 PM CDT documented as of this encounter Care Teams Utility Repairer Relationship Specialty Start Date End Date Abril Chang MD [address] [place] [address] [id number] PCP - General 03/05/03 Obdulia Abbott PA-C [address] [facility] [place] [address] PCP - Assigned PCP 12/22/17 09/16/18 Obdulia Abbott PA-C [address] [facility] [place] [address] Assigned PCP 12/22/17 11/22/[address] [facility] [place] [address] Boardmarker Dietitian, Registered 12/04/18 Abril Chang MD [address] [place] [address] Assigned PCP 11/23/18 01/07/21 Ronak Vann DO [address] [place] [address] Assigned PCP 01/08/21 04/01/21 Fartun Velez APRN CNP [address] [place] [address] Assigned PCP 04/02/21 06/17/21 Abril Chang MD [address] [place] [address], [place] [address] Assigned PCP 06/18/21 07/22/21 Ronak Vann DO [address] [place] [address] Assigned PCP 07/23/21 01/12/22 Abril Chang MD [address] [place] [address] Assigned PCP 01/13/22 Estela Jernigan, RN Boardmarker Diabetes Education 09/03/22 Mulugeta Gimenez PA-C [address] [facility] [address] [address] Assigned Neuroscience Provider 11/03/22 Ella Sumner PA-C [address] [facility] [place] [address] Physician Epoxy Fabrication Supervisor Dermatology 11/14/23 Perez Wheeler MD [address] [place] [address] Physician 12/05/23 Perez Wheeler MD [address] [place] [address] Assigned Surgical Provider 02/04/24 05/05/24 Ella Sumner PA-C [address] [facility] [place] [address] Assigned Surgical Provider 05/06/24 10/03/24 Ella Sumner PA-C [address] [facility] [place] [address] Assigned Dermatology Provider 10/04/24 12/03/24 Perez Wheeler MD [address] [place] [address] Assigned Surgical Provider 10/04/24 Ara Engel PA-C Dermatology [address] [place] [address] Assigned Dermatology Provider 12/04/24 documented as of this encounter
--- OUTSIDE RECORDS SUMMARY | 2025-05-12 02:11 | XMS_ITS | Encounter Summary ---
Author Organization [place] Address [facility]0 [facility] [place] [address] Care Team Providers Care Last Scourer Name Role Phone Abril Chang MD Primary Care Provider Obdulia Abbott PA-C Unavailable [phone] Obdulia Abbott PA-C Unavailable [phone] Unavailable Unavailable Abril Chang MD Unavailable [phone] Ronak Vann DO Unavailable [phone] Fartun Velez APRN UNIT RECEPTIONIST Unavailable + Abril Chang MD Unavailable [phone] Ronak Vann DO Unavailable [phone] Abril Chang MD Unavailable +[phone] Estela Jernigan RN Unavailable [phone] Mulugeta Gimenez PA-C Unavailable [phone] Ella Sumner PA-C Unavailable [phone] Perez Wheeler MD Unavailable Perez Wheeler MD Unavailable Ella Sumner PA-C Unavailable [phone] Ella Sumner PA-C Unavailable [phone] Perez Wheeler MD Unavailable Ara Engel PA-C Unavailable [phone] Encounter Details Date Type Department Care Team (Late st Contact Info) Description 03/17/2010 Office Visit-[facility] [place] [address] [facility] [address] [place] [phone] Bharti Escudero, [address] [facility] [address] [place] [address] Social History Tobacco Use Types Packs/Day Years Used Date Smoking Tobacco: Former Cigarettes 0.2 2 Comments:QUIT AT AGE 12 Alcohol Use Standard Drinks/Week Comments No 0 (1 standard drink = 0.6 oz pur e alcohol) Comments No Sex and Gender Information Value Date Recorded Sex Assigned at Not on file 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 DATE: 03/17/2010 KATY MERAZ DATE OF : 1950 AGE: [age] years old Referring Physician: ABRIL CHANG Referring Clinic: [facility] CURRENT DIAGNOSES 1. - Murmur, 785.2 2. Aortic Valve Disease, 424.1 3. - Hyperlipidemia, 272.4 4. Hypothyroidism, 244.9 5. - Chest Pain-unspecified, 786.50 ALLERGIES Acetaminophen Atorvastatin Calcium Caffeine, Depression Hydrocodone Bit Sertraline HCl MEDICATIONS (prior to changes made today) 1. Aspirin 81 mg Tablet, 1 p.o. daily 2. Citracal Caplets Plus D 1500 Mg-200 U, 1 p.o. daily 3. Fish Oil -, 1 p.o. daily 4. Daily Multivitamin Tablet, 1 p.o. daily 5. Zetia 10 mg Tablet, 1 qPM 6. Premarin 0.625 mg/g Cream, Take as Directed 7. Nitrofurantoin Macrocrystal 50 mg Capsule, 100mg prn 8. Omeprazole 20 mg Capsule, Delayed Release(E.C.), 1 p.o. PRN as Directed 9. Crestor 10 mg Tablet,1 p.o. daily 10. Levothyroxine 25 mcg Tablet, 1 p.o. daily 11. Amoxicillin 500 mg Capsule, 1 p.o. twice daily for ear inf 12. Nitrofurantoin (Bzgoheyywm21%) 100 mg Capsule, Take as Directed CHIEF COMPLAINTS Followup of Aortic Valve Disease HISTORY OF PRESENT ILLNESS Ms. Meraz is a very pleasant 59-year-old female with a history of aortic sclerosis, hyperlipidemia, and chest pain. She returns for an annual follow-up visit. She denies any recurrence of chest pain. She did have a stress test performed last year around this time that did not show evidence of ischemia. She has been maintained on Crestor and Zetia for her cholesterol. She has had several intolerances to cholesterol lowering medications but seems to do well with the Crestor and Zetia. Her last cholesterol profile was in September of this year demonstrating excellent control with total cholesterol of 177, HDL 61, LDL 87, triglycerides 144. Her HDL jumped from 48 up to 61 from her previous jose urement. She has had some significant stress over the last year. Her beorij-nj-itt and her father within the last year. She has noted some increased fatigue and just had some blood tests done at her primary a couple days ago. She does not have the results of those yet. She does not have any symptoms of chest discomfort, shortness of breath or decreased exercise tolerance. Her blood pressure today in office is 128/70, pulse 68 and regular, body mass index is 33. She has gained about 7 pounds from our previous visit. She has normal carotid upstrokes without bruits bilateral. There is no jugular venous distention. Cardiovascular tones are regular without murmur, gallopor rub. Lungs are clear posteriorly without wheezing or rales. No abdominal bruits are heard and she has strong and symmetric pulses in the upper and lower extremities without peripheral edema. 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 INTEGUMENTARY denies any [...] disorders. PHYSICAL EXAMINATION VITAL SIGNS: Blood Pressure: 128/70Sitting, Right arm, large cuff Pulse- 68.00/min. Weight- 207.00 lbs. Height- 66.00 Temperature- .00 CONSTITUTIONAL cooperative, [...] time, person and place. MEDICATIONS UPDATED/STARTED TODAY: Amoxicillin 500 mg Capsule, 1 p.o. twice daily for ear inf, #0 Crestor 10 mg Tablet, 1 p.o. daily, #0 Levothyroxine 25 mcg Tablet, 1 p.o. daily, #0 Nitrofurantoin (Woavzbrsrs86%) 100 mg Capsule, Take as Directed, #0 MEDICATIONS REFILLED/STOPPED TODAY: Crestor 10 mg Tablet Dose/instruction UK #30 or #100 Physician Order and Levothroid 0.025 mg 1 p.o.daily 0 Physician Order IMPRESSIONS/PLAN In summary, Ms. Meraz is a very pleasant 59-year-old female with a history of aortic sclerosiswithout significant stenosis or insufficiency, hyperlipidemia, obesity, with symptoms of fatigue. In talking with her about her symptoms of fatigue, it seems that she has not been able to tolerate a CPAP machine that she has had for about four years now with the diagnosis of sleep apnea. She did contact the company that distributes the masks and has had a change in her equipment and is able to tolerate this. This may in fact help significantly with her symptoms of fatigue although I would have her follow-up with her primary in regards to the blood tests including thyroid studies. From a cardiac perspective, she is doing quite well. She has excellent control of her cholesterol. I reminded her to exercise at least three times a week. She is line dancing at least twice a week, which she does for almost 3 hours at a time. I have also asked her to keep an eye on her weight as she has crept up about 7 pounds from her last visit. I would be happy to continue to follow her on an annual basis or if she has any symptoms that require more urgent evaluation. Please feel free to contact me with any questions you have in regards to her care. TODAYS ORDERS 1. 2D, color flow, doppler 1 year,may include the addition of contrast,bubble study,or the change to either a limited or complete study-see policy 2. Return Visit 1 year Agustin Escudero D.O. documented in this encounter Plan of Treatment Upcoming Encounters Date Type Department Care Team (Late st Contact Info) Description 11/08/2025 8:00 AM CDT Office Visit [address] [phone] Abril Chang MD [address] [place] [phone] 11/09/2025 10:00 AM CDT Office Visit [facility] [address] [place] [phone] Mulugeta Gimenez PA-C [address] [phone] documented as of this encounter Visit Diagnoses Not on filedocumented in this encounter Additional Health Concerns Infection Onset Date Last Indicated Resolved Time Rule Out COVID-19 02/26/2022 02/26/2022 02/27/2022 8:27 PM CDT documented as of this encounter Care Teams Last Scourer Relationship Specialty Start Date End Date Abril Chang MD [address] [place] [address] [id number] PCP - General 03/05/03 Obdulia Abbott PA-C [address] [facility] [place] [address] PCP - Assigned PCP 12/22/17 09/16/18 Obdulia Abbott PA-C [address] [place] [address] Assigned PCP 12/22/17 11/22/[address] [place] [address] Hand Lacer Dietitian, Registered 12/04/18 Abril Chang MD [address] [place] [address], [place] [address] Assigned PCP 11/23/18 01/07/21 Ronak Vann DO [address] [place] [address], [place] [address] Assigned PCP 01/08/21 04/01/21 Fartun Velez APRN UNIT RECEPTIONIST [address] [place] [address], [place] [address] Assigned PCP 04/02/21 06/17/21 Abril Chang MD [address] [place] [address], [place] [address] Assigned PCP 06/18/21 07/22/21 Ronak Vann DO [address] [place] [address], [place] [address] Assigned PCP 07/23/21 01/12/22 Abril Chang MD [address] [place] [address], [place] [address] Assigned PCP 01/13/22 Estela Jernigan RN Hand Lacer Diabetes Education 09/03/22 Mulugeta Gimenez PA-C [address] [address] Assigned Neuroscience Provider 11/03/22 Ella Sumner PA-C [address]01 [place] [address] Physician Plasterer Foreman Dermatology 11/14/23 Perez Wheeler MD [address] [place] [address] Physician 12/05/23 Perez Wheeler MD [address] [place] [address] Assigned Surgical Provider 02/04/24 05/05/24 Ella Sumner PA-C [address] [place] [address] Assigned Surgical Provider 05/06/24 10/03/24 Ella Sumner PA-C [address] [place] [address] Assigned Dermatology Provider 10/04/24 12/03/24 Perez Wheeler MD [address] [place] [address] [id number] Assigned Surgical Provider 10/04/24 Ara Engel PA-C Dermatology [address] [place] [address] Assigned Dermatology Provider 12/04/24 documented as of this encounter
--- OUTSIDE RECORDS SUMMARY | 2025-05-12 02:11 | XMS_ITS | Encounter Summary ---
Author Organization [facility] Address [address] [place] [address]. [place] [address] Care Team Providers Care Checker Name Role Phone Radha Chang MD Primary Care Provider Love Andrew RD Unavailable Unavailable Radha Chang MD Unavailable [phone] Estela Jernigan RN Unavailable [phone] Mulugeta Gimenez PA-C Unavailable [phone] Ella Sumner PA-C Unavailable [phone] Perez Wheeler MD Unavailable Perez Wheeler MD Unavailable Ella Sumner PA-C Unavailable [phone] Ella Sumner PA-C Unavailable [phone] Perez Wheeler MD Unavailable Ara Engel PA-C Unavailable [phone] Encounter Details Date Type Department Care Team (Late st Contact Info) Description 02/29/2024 MyC Medical Advice Initial Department [address] [place] [address] Sigifredo Philip Social History Tobacco Use Types [...] re latives? 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 Gender Identity Not on file Sexual [...] Description 11/08/2025 8:00 AM CDT Office Visit [address] [phone] Radha Chang MD [address] [place] [address] [phone] 11/09/2025 10:00 AM CDT Office Visit [facility] [address] [phone] Mulugeta Gimenez PA-C [address] [place] [address] [phone] documented as of this encounter Goals Goal [...] documented as of this encounter Care Teams Checker Relationship Specialty Start Date End Date Radha Chang MD [address] [place] [address] PCP - General 03/05/[address] [place] [address] Gis Manager Dietitian, Registered 12/04/18 Radha Chang MD [address] [place] [address] Assigned PCP 01/13/22 Estela Jernigan, RN Gis Manager Diabetes Education 09/03/22 Mulugeta Gimenez PA-C [address] [facility] [place] [address] [place] [id number] Assigned Neuroscience Provider 11/03/22 Ella Sumner PA-C [address] [facility] [place] [facility] [place] [address] Physician Art Editor Dermatology 11/14/23 Perez Wheeler MD [address] [place] [address] Physician 12/05/23 Perez Wheeler MD [address] [place] [address] [phone] Assigned Surgical Provider 02/04/24 05/05/24 Ella Sumner PA-C [address] [facility] [place] [address] Assigned Surgical Provider 05/06/24 10/03/24 Ella Sumner PA-C [address] [facility] [place] [address] Assigned Dermatology Provider 10/04/24 12/03/24 Perez Wheeler MD [address] [place] [address] [phone] Assigned Surgical Provider 10/04/24 Ara Engel PA-C Dermatology [address] [place] [address] [phone] Assigned Dermatology Provider 12/04/24 documented as of this encounter
--- OUTSIDE RECORDS SUMMARY | 2025-05-12 02:11 | XMS_ITS | Encounter Summary ---
Author Organization [facility] Address [facility] [place] [address] Care Team Providers Care Chin Strap Maker Name Role Phone Abril Chang MD Primary Care Provider Obdulia Abbott PA-C Unavailable [phone] Obdulia Abbott PA-C Unavailable [phone] Unavailable Unavailable Abril Chang MD Unavailable [phone] Ronak Vann DO Unavailable [phone] Fartun Velez APRN BUDGET REPORT CLERK Unavailable + Abril Chang MD Unavailable [phone] Ronak Vann DO Unavailable [phone] Abril Chang MD Unavailable +[phone] Estela Jernigan RN Unavailable [phone] Mulugeta Gimenez PA-C Unavailable [phone] Ella Sumner PA-C Unavailable [phone] Perez Wheeler MD Unavailable Perez Wheeler MD Unavailable Ella Sumner PA-C Unavailable [phone] Ella Sumner PA-C Unavailable [phone] Perez Wheeler MD Unavailable Ara Engel PA-C Unavailable [phone] Encounter Details Date Type Department Care Team (Late st Contact Info) Description 03/12/2006 Office Visit-[facility] [address] [place] [address] Oxana Cristy Wing Social History Tobacco Use Types Packs/Day Years Used Date Smoking Tobacco: Former Cigarettes 0.2 2 Comments:quit at age 12 Alcohol Use Standard Drinks/Week Comments No 0 (1 standard drink = 0.6 oz pur e alcohol) Comments No Sex and Gender Information Value Date Recorded Sex Assigned at Not on file Legal Sex Female 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 - Hyperlipidemia, 272.4 2. - Chest Pain-unspecified, 786.50 3. Aortic Valve Disease, 424.1 4. - Murmur, 785.2 5. Hypothyroidism, 244.9 ALLERGIES Caffeine, Depression Zoloft, Tremors MEDICATIONS (including any changes made today) 1. Cipro 250 mg, 1 p.o. b.i.d. 2. Aspirin 81 mg, 1 p.o. q.d. 3. Prilosec 20 mg, PRN 4. Multi-Day Multiple Vitamins, 1 p.o. q.d. 5. Fish Oil -, 1 p.o. q.d. 6. Citracal Caplets Plus D 1500 mg-200 u, 1 p.o. q.d. 7. Zetia 10 mg, 1 qPM CHIEF COMPLAINTS CP HISTORY OF PRESENT ILLNESS Katy is back in today. She had an episode of chest pain at a about three months ago thatlasted most of the and persisted for another couple of hours afterward. As you know, in July we had a nuclear stress test on her that was negative for ischemia, and I suspect this pain is most likely noncardiac. I told her if it recurs that she should let you know because it may be due to something else that is very treatable. She denies any changes in her cardiac symptoms other than that. She has noticed no decrease in her breathing with exertion and has had no palpitations or lightheaded spells and has not noticed any fluid retention. PAST HISTORY Past Medical Illnesses: hypothyroidism, uterine lipoma,osteoarthritis,gerd,fatty liver, hyperlipidemia, labyrinthitis Past Cardiac Illnesses: murmur, Aortic valve disease Infectious Diseases: usual childhood illnesses of mumps, measles and chickenpox Surgical Procedures: arthroscopic knee surgery Trauma History: metacarpal FX Cardiology Procedures-Noninvasive: echocardiogram June 2005, myocardial perfusion imaging (Nuclear) July 2005 Left Ventricular Ejection Fraction: EF50% by Echo -June 2005, EF 66% by nuclear study 2005 FAMILY HISTORY: Father - CAD, hypercholesterolemia and pacemaker; Mother - , diabetes- Type II (NIDDM) and [place]; Sister 1 - diabetes-Type II (NIDDM) and hypercholesterolemia; CARDIAC RISK FACTORS Tobacco Abuse: negative; Family History of Heart Disease: strong family history of heart disease; Hyperlipidemia: positive; Hypertension: negative; Diabetes Mellitus: negative; Prior History of HeartDisease: negative; Obesity:BMI25 (Over weight); Sedentary Life Style:positive; Age:positive; Menopausal:positive SOCIAL HISTORY Alcohol Use - does not use alcohol; Smoking - never smoked; Diet - weight Reduction Diet, caffeine use-none and low fat Diet; Lifestyle - ; Exercise - exercises daily, 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 GENITOURINARY-FEMALE positive for frequency, positive for urgency MUSCULOSKELETAL muscle pain or cramps NEUROLOGICAL headaches PSYCHIATRIC recent onset stress ENDOCRINE denies any history of hyperlipidemia, thyroid disease or diabetes mellitus. HEMATOLOGICAL/IMMUNOLOGIC allergy to caffeine PHYSICAL EXAMINATION VITAL SIGNS: Blood Pressure: 130/80 Sitting, Left arm, large cuff Pulse- 80.00/min. Weight- 199.00 lbs. Height- 66.00 Temperature- .00 CONSTITUTIONAL cooperative, alert and oriented,well developed, well nourished, in no acute distress. SKIN warm and dry to touch, no apparent skin lesions, or masses noted. NECK carotid pulses are full and equal [...] oriented to time, person and place. MEDICATIONS UPDATED TODAY: IMPRESSIONS/PLAN Thank you for sending her blood work from your office. Her latest profile was very abnormal and I know she has been tried on a number of statin agents, but each time her liver functions start increasing with the first blood check. I asked her if she had been on Crestor and she does not think that she has, but I am sure that would be in your records. Looking at her profile and her other risk factors, she really should be treated. I would like to have her LDL at least below 130. It would be better if it was closer to 100. It may be because of her sensitive liver that we may not be able to do this but I think it is worth a try, and I would continue this with the Crestor. As far as her aortic valve is concerned, I would like to repeat her echocardiogram in a year and ifthere has been no change in the aortic insufficiency I think we can safely assume it is a static condition, and then I will follow her symptomatically. TODAYS ORDERS 1. Return Visit 1 year 2. 2D, color flow, doppler 1 year Cristy Daigle MD Electronically signed by [facility] Data Conversion at 11/27/2013 12:27 AM CDT documented in this encounter Plan of Treatment Upcoming Encounters Date Type Department Care Team (Late st Contact Info) Description 11/08/2025 8:00 AM CDT Office Visit [place] [phone] Abril Chang MD [address] [facility] [place] [id number] 11/09/2025 10:00 AM CDT Office Visit [facility] [address] [facility] [address] [place] [phone] Mulugeta Gimenez PA-C [address] [facility] [address] [place] [address] documented as of this encounter Visit Diagnoses Not on filedocumented in this encounter Additional Health Concerns Infection Onset Date Last Indicated Resolved Time Rule Out COVID-19 02/26/2022 02/26/2022 02/27/2022 8:27 PM CDT documented as of this encounter Care Teams Chin Strap Maker Relationship Specialty Start Date End Date Abril Chang MD [address] [place] [address] PCP - General 03/05/03 Obdulia Abbott PA-C [address] [place] [address] [place] [address] PCP - Assigned PCP 12/22/17 09/16/18 Obdulia Abbott PA-C [address] [place] [address] [place] [address] Assigned PCP 12/22/17 11/22/[address] [place] [address] [place] [address] Senior Quality Assurance Analyst Dietitian, Registered 12/04/18 Abril Chang MD [address] [place] [address] [phone] Assigned PCP 11/23/18 01/07/21 Ronak Vann DO [address] [place] [address] Assigned PCP 01/08/21 04/01/21 Fartun Velez APRN BUDGET REPORT CLERK [address] [place] [address]774 Assigned PCP 04/02/21 06/17/21 Abril Chang MD [address] [place] [address] Assigned PCP 06/18/21 07/22/21 Ronak Vann DO [address] [place] [address] Assigned PCP 07/23/21 01/12/22 Abril Chang MD [address] [place] [address] 91079 Assigned PCP 01/13/22 Estela Jernigan RN Senior Quality Assurance Analyst Diabetes Education 09/03/22 Mulugeta Gimenez PA-C [address] [facility] [place] [phone] Assigned Neuroscience Provider 11/03/22 Ella Sumner PA-C [address] [facility] [place] [id number] Physician Mounter Sousaphones Dermatology 11/14/23 Perez Wheeler MD [address] [place] [address] Physician 12/05/23 Perez Wheeler MD [address] [place] [address] 91436 Assigned Surgical Provider 02/04/24 05/05/24 Ella Sumner PA-C [address] [place] [address] Assigned Surgical Provider 05/06/24 10/03/24 Ella Sumner PA-C [address] [place] [address] Assigned Dermatology Provider 10/04/24 12/03/24 Perez Wheeler MD [address] [place] [address]81 Assigned Surgical Provider 10/04/24 Ara Engel PA-C Dermatology [address] [place] [address] Assigned Dermatology Provider 12/04/24 documented as of this encounter
--- OUTSIDE RECORDS SUMMARY | 2025-05-12 02:11 | XMS_ITS | Encounter Summary ---
Author Organization [facility] Address [address] [place] [address]. [place] [address] Care Team Providers Care Nursing Student Name Role Phone Radha Chang MD Primary Care Provider Love Andrew RD Unavailable Unavailable Radha Chang MD Unavailable [phone] Esetla Jernigan RN Unavailable [phone] Mulugeta Gimenez PA-C Unavailable Ella Sumner PA-C Unavailable Perez Wheeler MD Unavailable Ella Sumner PA-C Unavailable Perez Wheeler MD Unavailable Ara Engel PA-C Unavailable [phone] Reason for Visit * Reason Onset Date Comments Appointment 10/26/2024 Coronary Calcium Scan and Exercise Stress Echo Encounter Details Date Type Department Care Team (Late st Contact Info) Description 10/26/2024 Telephone [facility] [address] [facility] [address] [place] [address] None Appointment (Coronary Calcium Scan and Exercise Stress Echo) Social History Tobacco Use Types Packs/Day Years [...] re latives? Twice a week 02/25/2024 Attends Faith Services Not on file 02/24 Active Member of Clubs or Organizations Not on f ile 02/25/2024 Attends Club or Organization Meetings Not on randolph e 02/25/2024 Marital Status Not on file 02/25/2024 PHQ-2 Answer Date Recorded PHQ-2 Score 0 10/26/2024 [facility] [place] of Occupat ional Health - Occupational Stress [...] in an abandoned building, in an overnight intermediate, or couch-surfing.) Yes 02/25/2024 Are you worried [...] motionally safe where you currently live? Yes 10/26/2024 Within the past 12 months, h ave you been hit, slapped, kicked or otherwise physically hurt by someone? No 10/26/2024 Within the past 12 months, h ave you been humiliated or emotionally abused in other ways by your partner or ex-partner? 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 Please call to schedule at . Action Taken: Message routed to: [facility] cardio Travel Screening: Not Applicable Thank you! [facility] Date of Service: documented in this encounter Plan of Treatment Upcoming Encounters Date Type Department Care Team (Late st Contact Info) Description 11/08/2025 8:00 AM CDT Office Visit [address] [phone] Radha Chang MD [address] [place] [address] [place] [address] 11/09/2025 10:00 AM CDT Office Visit [facility] [place] [address] [place] [phone] Mulugeta Gimenez PA-C [address] [place] [address] documented as of this encounter Goals Goal [...] documented as of this encounter Care Teams Nursing Student Relationship Specialty Start Date End Date Radha Chang MD [address] [place] [address] PCP - General 03/05/[address] [place] [address] Platform Software Engineer Dietitian, Registered 12/04/18 Radha Chang MD [address] [place] [address] Assigned PCP 01/13/22 Estela Jernigan RN Platform Software Engineer Diabetes Education 09/03/22 Mulugeta Gimenez PA-C [address] [facility] [address] [address] Assigned Neuroscience Provider 11/03/22 Ella Sumner PA-C [address] [place] [address] Physician Hospice Chaplain Dermatology 11/14/23 Perez Wheeler MD [address] [place] [address] Physician 12/05/23 Ella Sumner PA-C [address] [place] [address] Assigned Dermatology Provider 10/04/24 12/03/24 Preez Wheeler MD [address] [place] [address] Assigned Surgical Provider 10/04/24 Ara Engel PA-C Dermatology [address] [place] [address] Assigned Dermatology Provider 12/04/24 documented as of this encounter
[2025-05-12 02:52] VITALS: RESP 18
== END 2025-05-12 02:59 | disposition home or self-care (01) ==
PROVIDERS: Emergency Provider Family Medicine
DX: S63.501A Unspecified sprain of right wrist, initial encounter (principal); S53.401A Unspecified sprain of right elbow, initial encounter; S43.401A Unspecified sprain of right shoulder joint, initial encounter; W19.XXXA Unspecified fall, initial encounter; Y92.000 Kitchen of unspecified non-institutional (private) residence as the place of occurrence of the external cause
CPT/HCPCS: 73030; 73080; 73110; 99283; 99284; A9270